=== PATIENT | female | born 1955 | race Caucasian/White ===

== ENCOUNTER → 2019-02-03 14:55 | Outpatient (CLI) | payer MEDICARE, SELFPAY ==
--- NOTE | 2019-02-03 15:05 | MM_ITS ---
PROCEDURE: MM DIG SCREENING MAMM BI W/CAD CLINICAL INDICATION: SCREENING The patient had previous mammograms more than 10 years ago which have been purged. There is a history of breast cancer in patient's mother diagnosed after menopause. COMPARISON: No exams were available for comparison TECHNIQUE: Standard CC and MLO images were obtained. R2 CAD reviewed. FINDINGS: Diffusely heterogenic fibroglandular densities are seen in both breasts. There is a dominant asymmetric density outer quadrant right breast at the 9 o'clock position. Recommend patient return for spot compression views and ultrasound for additional evaluation. There are multiple scattered benign-appearing macro and microcalcifications in each breast. There is faint arterial calcification in each breast. IMPRESSION: Diffusely dense parenchymal pattern with asymmetric density right breast somewhat indeterminate in appearance BI-RAD Category: 0 Need Additional Imaging Evaluation FOLLOW-UP: IMM Immediate Follow-up Recommended (A letter has been sent to the patient regarding results of the study.) Dictated by: Dr. Meño Tomlinson MD 02/05/2019 14:[address] Meño Tomlinson MD in [place] 02/05/2019 14:34
== END ==
PROVIDERS: PCP Nurse Practitioner Family; Visit Provider Nurse Practitioner Family
DX: Z12.31 Encounter for screening mammogram for malignant neoplasm of breast (principal)
CPT/HCPCS: 77067

== ENCOUNTER → 2019-02-24 13:39 | Outpatient (CLI) | payer MEDICARE, SELFPAY ==
--- NOTE | 2019-02-24 13:45 | MM_ITS ---
PROCEDURE: MM DIG MAMM DX UNILAT RT CAD CLINICAL INDICATION: ABN MAMM Follow-up abnormal mammogram COMPARISON: MM DIG SCREENING MAMM BI W/CAD from 02/03/2019 US BREAST RT COMPLETE from 02/24/2019 TECHNIQUE: Problem solving views performed along with right breast ultrasound FINDINGS: Average fibroglandular tissue. There is an oval well-circumscribed 15 by 8 mm nodule in the lower outer aspect of the right breast. Scattered asymmetric areas are present along with diffuse coarse areas of calcification. In addition, there is a small cluster of calcifications in the outer aspect of the right breast. These are mostly coarse with only a few pleomorphic calcifications noted. Unfortunately, patient's previous mammograms have been purged with no old exams available for comparison. Right breast ultrasound: There is a 12 by 8 mm cyst in the 8 o'clock region of the right breast corresponding to the nodular density noted on mammogram. No other abnormalities are evident. IMPRESSION: The nodule within the lower outer aspect of the right breast corresponds to a benign-appearing cyst. However, there is a mildly suspicious cluster of calcifications noted in the outer aspect of the right breast for which biopsy is suggested. Recommend stereotactic directed biopsy. BI-RAD Category: 4 Suspicious Abnormality - Biopsy Considered FOLLOW-UP: BIO Biopsy Recommended (A letter has been sent to the patient regarding results of the study.) Dictated by: Sharif Harper MD 02/27/2019 13:42 Electronically signed by Sharif Harper MD in [place] 02/27/2019 13:42
== END ==
PROVIDERS: PCP Nurse Practitioner Family; Visit Provider Nurse Practitioner Family
DX: R92.2 Inconclusive mammogram (principal)
CPT/HCPCS: 76641; 77065

== ENCOUNTER → 2019-03-17 08:40 | Outpatient (CLI) | payer MEDICARE, SELFPAY ==
--- NOTE | 2019-03-17 08:47 | MM_ITS ---
PROCEDURE: MM STEREOTACTIC LOC RT MAMMO SURGICAL SPECIMEN POST BIOPSY MAMMOGRAM WITH CLIP PLACEMENT CLINICAL INDICATION: RT BREAST MASS The COMPARISON: MM DIG SCREENING MAMM BI W/CAD from 02/03/2019 MM DIG MAMM DX UNILAT RT CAD from 02/24/2019 MM CLIP PLACEMENT RT from 03/17/2019 MM SURGICAL SPECIMEN RT from 03/17/2019 TECHNIQUE: Following obtaining informed consent under aseptic conditions and time-out procedure, the patient was placed in the stereotactic unit and the calcifications of interest were localized with stereotactic technique. Local anesthesia with 1 percent lidocaine and deeper anesthesia with lidocaine mixed with epinephrine was used. A skin su was performed and mammography needle inserted. Multiple mammotome biopsies were obtained with specimen radiograph demonstrating the calcifications of interest. A sterile non ferromagnetic clip was then placed. The patient tolerated the procedure well without evidence of immediate complications and left radiology suite in stable condition. Specimen was given to pathology FINDINGS: Surgical specimen: Microcalcifications of interest are present within the specimen radiograph. Post biopsy mammogram with clip placement: Pathology: Atrophic breast tissue with fatty metaplasia. Fibroadenomatoid hyperplasia with microcalcifications. Negative for atypical hyperplasia or malignancy. IMPRESSION: Uneventful stereotactic directed biopsy of the right breast showing benign findings. Recommend follow-up mammogram in 6 months per routine protocol. (A letter has been sent to the patient regarding results of the study.) Post biopsy changes are present with clip placed in the outer aspect of the right breast the with the calcifications of interest having been removed. Dictated by: Sharif Harper MD 03/23/2019 12:59 Electronically signed by Sharif Harper MD in [place] 03/23/2019 12:59
== END ==
PROVIDERS: PCP Nurse Practitioner Family; Visit Provider Nurse Practitioner Family
DX: D48.61 Neoplasm of uncertain behavior of right breast (principal)
CPT/HCPCS: 19081; 76098; 77065; 88305

== ENCOUNTER → 2019-03-19 10:24 | Outpatient (CLI) | payer MEDICARE, SELFPAY ==
--- NOTE | 2019-03-19 10:30 | CA_ITS ---
APPROVED REPORT Drop Shipment Clerk: Jaqueline Oliva RVT Laterality: Bilateral Study Quality: Adequate Indications: Carotid stenosis Risk Factors Hypertension: Hyperlipidemia Diabetes Stroke Doppler Spectral Velocity Analysis ECA (R) 63.20/7.50 cm/s ECA (L) 130.70/7.70 cm/s dICA (R) 79.00/29.10 cm/s dICA (L) 81.00/21.60 cm/s Sammie (R) 79.00/26.60 cm/s Sammie (L) 94.40/26.00 cm/s pICA (R) 97.30/34.10 cm/s pICA (L) 107.00/25.40 cm/s dCCA (R) 65.20/21.00 cm/s dCCA (L) 91.00/15.70 cm/s pCCA (R) 48.30/12.20 cm/s pCCA (L) 87.50/13.00 cm/s ICA/CCA 1.49 Vert (L) 66.00/13.70 cm/s ICA/CCA 1.18 Findings Study suggests 20-49% stenosis of the bilateral internal carotid arteries. Antegrade flow seen bilateral vertebral arteries. Conclusion Study suggests 20-49% stenosis of the bilateral internal carotid arteries. Antegrade flow seen bilateral vertebral arteries. Electronically signed by : Sharif Harper MD 03/20/2019 17:22:36
== END ==
PROVIDERS: PCP Nurse Practitioner Family; Visit Provider Nurse Practitioner Family
DX: I65.23 Occlusion and stenosis of bilateral carotid arteries (principal)
CPT/HCPCS: 93880

== ENCOUNTER 2021-08-02 21:09 | Emergency (ER) | payer MEDICARE, SELFPAY ==
[2021-08-02 21:11] VITALS: BP 152/81; PULSE 95; RESP 16; TEMP 36.6; O2SAT 97; BMI 28.3
[2021-08-02 21:30] VITALS: BP 157/71; PULSE 94; O2SAT 95
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
[2021-08-02 22:30] VITALS: BP 160/74; PULSE 84; O2SAT 92
[2021-08-02 23:28] VITALS: BP 153/84; PULSE 93; RESP 16; TEMP 36.4; O2SAT 96
== END 2021-08-02 23:29 | disposition home or self-care (01) ==
PROVIDERS: Emergency Provider Emergency Medicine; PCP Nurse Practitioner Family
DX: S01.81XA Laceration without foreign body of other part of head, initial encounter (principal); S00.83XA Contusion of other part of head, initial encounter; S16.1XXA Strain of muscle, fascia and tendon at neck level, initial encounter; V43.62XA Car passenger injured in collision with other type car in traffic accident, initial encounter; Y92.488 Other paved roadways as the place of occurrence of the external cause
CPT/HCPCS: 12011; 70150; 72050; 99283

== ENCOUNTER → 2022-01-03 09:27 | Outpatient (CLI) | payer MEDICARE, SELFPAY ==
--- NOTE | 2022-01-03 09:32 | XR_ITS ---
FINAL REPORT TECHNIQUE: Bone densitometry calculations of the lumbar spine and left hip were obtained. CLINICAL HISTORY: post menopausal FINDINGS: Using L1-4, the bone mineral density of the spine is 0.795 g/cm2, corresponding to T-score of -2.3. Using the left hip, the bone mineral density of the femoral neck is 0.502 g/cm2, corresponding to a T-score of -3.1. Using the right hip, the bone mineral density of the femoral neck is 0.558 g/cm2, corresponding to a T-score of -2.6. NOTE: T-score: Standard deviation compared with peak bone mass of young adult mean. *Following the recommendations of the International Society of Bone Densitometry, classification of hip BMD is based on the lower of two T-scores; total hip or femoral neck. IMPRESSION: Osteoporosis: Lowest T-score is at or below -2.5. This patient'' T-score meets the World Health Organization criteria for osteoporosis. FRAX score was not reported because some of the T-scores are at or below -2.5 Reviewed, Interpreted and Dictated by Dandy Suggs III, MD Transcribed by Haleigh Collier Authenticated and [facility]
--- NOTE | 2022-01-03 09:32 | MM_ITS ---
PROCEDURE INFORMATION: Exam: MG Bilateral Screening 3D Mammography Exam date and time: 01/03/2022 9:34 AM Age: 66 years old Clinical indication: Screening examination the. Family history of breast carcinoma. TECHNIQUE: Imaging protocol: Bilateral Screening tomosynthesis and 2D mammography including computer-aided detection (CAD) when performed. COMPARISON: 1. MG MM CLIP PLACEMENT RT 03/17/2019 10:29 AM 2. MG MM DIG MAMM DX UNILAT RT CAD 02/24/2019 1:55 PM 3. Screening mammogram 02/03/2019 FINDINGS: MAMMOGRAPHY: Breast composition: The breasts are heterogeneously dense, which may obscure small masses. Mass: No suspicious masses. Architectural distortion: No suspicious distortion. Calcifications: No suspicious calcifications. Asymmetric density: None. Skin thickening: None. Axillary adenopathy: None. IMPRESSION: No mammographic evidence of malignancy. Annual screening is recommended unless otherwise clinically indicated. ASSESSMENT: BI-RADS Category 1: Negative
== END ==
PROVIDERS: PCP Nurse Practitioner Family; Visit Provider Nurse Practitioner Family
DX: Z12.31 Encounter for screening mammogram for malignant neoplasm of breast (principal); M81.0 Age-related osteoporosis without current pathological fracture
CPT/HCPCS: 77063; 77067; 77080

== ENCOUNTER 2024-05-08 10:48 | Outpatient (CLI) | payer MEDICARE, SELFPAY ==
--- NOTE | 2024-05-08 | CA_ITS ---
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 Intrarenal resistive indices on the left are 0.91, markedly elevated. Right kidney: 11.6 cm in length, normal Right main renal artery systolic velocity: 631 cm/sec. Aortic-right renal artery flow velocity ratio: 6.1 COMMENT: Increased right renal artery velocity and ratio suggesting high-grade right renal artery stenosis.. Left kidney: 7.7 to cm in length, severely atrophic Left main renal artery systolic velocity: 89 cm/sec. Aortic-left renal artery flow velocity ratio: 0.86 COMMENT: Resistive indices markedly increased, probably related to chronic renal disease either remote infection or chronic ischemia.. IMPRESSION: High-grade right renal artery stenosis. Severely atrophic left kidney. Consider CTA or MRA of the renal arteries. Reviewed, Interpreted and Dictated by Eric Arzola MD Transcribed by Haleigh Collier Authenticated and . [facility]
--- NOTE | 2024-05-08 | CA_ITS ---
APPROVED REPORT Exam: Pharmacologic Technologist: Rosmery Rinaldi Ht: 5 ft 3 in Wt: 166 lbs BSA: 1.79 m2 Stress Test Details Test: Lexiscan Reason for pharmacologic stress test: changed from exercise stress test due to inability to reach target heart rate. HR Resting HR: 91 bpm Max Heart Rate (APMHR): 151.423645 bpm Max HR Achieved: 110 bpm Target HR (85% APMHR): 128.070535 bpm % of APMHR: 72.85 Recovery HR: 105 bpm BP Resting BP: 160.0/64.0 mmHg Max BP: 152.0/59.0 mmHg Recovery BP: 148.0/52.0 mmHg ECG Resting ECG: NSR, ST-T abns anterolaterally Stress ECG Conclusion Switched from exercise due to limited exercise capacity & inadequate HR response. Symptoms: Mild SOA, head discomfort. No CP. Arrhythmias/Ectopy: None. ST-T Changes: Exaqggeration of baseline abns laterally. Conclusion: Unremarkable Lexiscan stress. Electronically signed by : Kathi Hughes MD 05/13/2024 11:04:46
--- NOTE | 2024-05-08 10:56 | CA_ITS ---
APPROVED REPORT EXAM: Comprehensive 2D, Doppler, and color-flow Echocardiogram Parts Driver: Davida Christopher RT(R) Ht: 5 ft 3 in Wt: 162lbs BSA: 1.77 BP: 177/75 mmHg Indications: dyspnea, HTN, CKD, abn EKG 2D Dimensions Left Atrium 3.50 cm F: 2.7 - 3.8 LVEF (Beyer's) 28.40 % F: 54 - 74 LVOT 1.79 cm (M/F) 1.5-2.5 LV Volume 81.20 mL F: 46 - 106 LV Volume Index 45.9 mL/m2 F: 29 - 61 LA Volume 23.20 mL LA Volume Index 13.11 mL/m2 (M/F) 16-34 EF AP4 22.50 % EF AP2 34.2 % EF BP 28.4 % GL Strain -9.8 % M-Mode Dimensions RVDd 2.01 cm (0.9-2.6) LVDd 4.51 cm (3.5-5.7) Ao Diam 2.87 cm (2.0-3.7) LVDs 2.91 cm (3.5-5.7) IVSd 0.83 cm (0.6-1.1) PWd 1.16 cm (0.6-1.1) EF (Teich) 65.00% FS 35.50% EDV (Teich) 92.90 mL ESV (Teich) 32.50 mL LV Diastology E Decel Time 150 (160-240 msec) E/A Ratio 0.7 MED E' 5.4 (>= 7 cm/sec) E'/MED E' Ratio 15.11 (<= 14) LAT E' 6.2 (>= 10 cm/sec) E/LAT E' Ratio 13.16 (<= 14) Mitral Valve MV E Max Willie. 82.0 (40-130 cm/s) MV A Velocity 113.0 (40-130 cm/s) E/A Ratio 0.72 MV Decel. Time 150 (160-240 ms) Left Ventricle The left ventricle is normal size. The left ventricular systolic function is normal. The left ventricular ejection fraction is within the normal range. There is increased LV wall thickness. There is normal LV segmental wall motion. Transmitral Doppler flow pattern suggests impaired LV relaxation. LVEF is 60%. Right Ventricle The right ventricle is normal size. The right ventricular systolic function is normal. Atria The left atrium size is normal. The right atrium size is normal. There is no Doppler evidence of interatrial shunt. Aortic Valve The aortic valve is mildly thickened. There is no aortic valvular stenosis. No aortic regurgitation is present. Mitral Valve The mitral valve is mildly thickened. No evidence of mitral valve stenosis. Trace mitral regurgitation. Tricuspid Valve Tricuspid valve is grossly normal in structure and function. Trace tricuspid regurgitation. There is insufficient TR jet to estimate RVSP. Pulmonic Valve The pulmonary valve is normal in structure. Trace pulmonic regurgitation. Great Vessels The aortic root is normal in size. IVC is normal in size and collapses >50% with inspiration. Pericardium There is no pericardial effusion. Other Information Study Quality: Technically Difficult Conclusion Technically difficult study due to poor accoustic windows. Normal biventricular systolic function. No significant valvular stenosis or regurgitation. Electronically signed by : Kathi Hughes MD 05/20/2024 19:50:10
--- NOTE | 2024-05-08 11:40 | NM_ITS ---
APPROVED REPORT Exam: Nuclear Stress Test Indication: soa Patient Location: Outpatient Stress Tech: Rosmery Guevara CT Tech:Lucrecia Kitchen ALBINJovanni RT(R)(N) Ht: 5 ft 3 in Wt: 165 lbs HR: 91 bpm BP: 160/64 mmHg BSA: 1.78 m2 TID: 1.00 BMI: 29.2 History: soa Procedure: Patient received 0.4 mg of intravenous Lexiscan, resting heart rate 91 bpm, resting blood pressure 160/64 mmHg, with Lexiscan maximum heart rate achieved was 105 bpm which is 85 % of the maximum predicted heart rate and blood pressure was 135/44 mmHg. With Lexiscan, patient denied any complaint of chest pain. Cardiac Stress and Resting SPECT Images: Cardiac Stress and Resting SPECT images were obtained using technetium 99m Myoview 32.6 mCi stress and 10.48 mCi at rest. Resting and stress imaging in supine and prone positions demonstrate no evidence of fixed or reversible perfusion defects. Gated imaging demonstrates normal global and regional LV systolic function. LVEF is calculated at 63%. Conclusion: No evidence of fixed or reversible perfusion defects. Gated imaging demonstrates normal global and regional LV systolic function. LVEF is calculated at 63%. Electronically signed by : Kathi Hughes MD 05/13/2024 10:58:58
[2024-05-08] MEDS: ISOTOPE MYOVIEW (PER STUDY) 1 DOSE IV (13:38)
[2024-05-08] MEDS: REGADENOSON 0.4MG/5ML SYRINGE 0.4 MG IV (13:38)
[2024-05-08] MEDS: SODIUM CHLORIDE 0.9% 10ML SYR (RAD ONLY) 10 ML IV ×2 (13:38)
== END 2024-05-08 23:59 | disposition home or self-care (01) ==
LOC: RT 10:50
PROVIDERS: PCP Nurse Practitioner Family; Visit Provider Nurse Practitioner Family
DX: R94.31 Abnormal electrocardiogram [ECG] [EKG] (principal); R06.09 Other forms of dyspnea; R01.1 Cardiac murmur, unspecified; I12.9 Hypertensive chronic kidney disease with stage 1 through stage 4 chronic kidney disease, or unspecified chronic kidney disease; N18.9 Chronic kidney disease, unspecified
CPT/HCPCS: 78452; 93017; 93018; 93306; 93976; A9502; J2785

== ENCOUNTER 2024-06-18 14:02 | Outpatient (CLI) | payer MEDICARE, SELFPAY ==
--- NOTE | 2024-06-18 14:07 | CA_ITS ---
FINAL REPORT TECHNIQUE: Color Doppler, duplex Doppler and whitlock scale sonography of the bilateral neck vasculature was performed. Velocities were measured in the carotid arteries. Stenosis evaluation based on velocity criteria. CLINICAL HISTORY: Exsmoker, SATURNINO, Bruit COMPARISON: None FINDINGS: The peak systolic velocity of the right common carotid artery is 110 cm/sec and internal carotid artery 86 cm/sec. The diastolic velocity in the internal carotid artery is 25 cm/sec. The ICA/CCA ratio is 1.2. Visually, a small amount of plaque is seen. These findings are consistent with less than 50% stenosis. The external carotid artery is patent. Scant flow is noted in the right vertebral artery, which appears to be antegrade, although extremely faint and difficult to identify. The peak systolic velocity of the left common carotid artery is 109 cm/sec and internal carotid artery 158 cm/sec. The diastolic velocity in the internal carotid artery is 24 cm/sec. The ICA/CCA ratio is 1.8. Visually, a small amount of plaque is seen. These findings are consistent with less than 50% stenosis. The external carotid artery is patent. The left vertebral artery is patent with antegrade flow. IMPRESSION: No evidence of significant carotid stenosis. Scant flow is noted in the right vertebral artery, with the flow appearing to be antegrade. Right vertebral artery proximal stenosis is not excluded. If indicated, CTA or catheter angiography could further evaluate. Reviewed, Interpreted and Dictated by Jin Nix MD Transcribed by Clara Cabral Authenticated and [facility]
== END 2024-06-18 23:59 | disposition home or self-care (01) ==
LOC: RT 14:03
PROVIDERS: PCP Nurse Practitioner Family; Visit Provider Nurse Practitioner
DX: R09.89 Other specified symptoms and signs involving the circulatory and respiratory systems (principal)
CPT/HCPCS: 93880

== ENCOUNTER 2024-07-24 07:47 | Outpatient (CLI) | payer MEDICARE, SELFPAY ==
--- NOTE | 2024-07-24 07:51 | XR_ITS ---
FINAL REPORT CLINICAL HISTORY: SOB COMPARISON: None FINDINGS: CHEST 2 VIEWS: No acute pulmonary density is evident. There is no evidence of effusion or other pleural disease. The mediastinum has a normal appearance. The cardiac silhouette is unremarkable. IMPRESSION: Unremarkable chest exam. Reviewed, Interpreted and Dictated by Eric Arzola MD Transcribed by Clara Cabral Authenticated and [facility]
--- NOTE | 2024-07-24 07:51 | CT_ITS ---
FINAL REPORT CLINICAL HISTORY: .former smoker quit 5 years ago 1ppd x49 years COMPARISON: None FINDINGS: CT CHEST LOW DOSE SCREENING HISTORY: Screening exam for lung cancer. 68-year-old female, former smoker quit 5 years ago, [id number]-[id number] history DOSE: CTDI vol: 2.90 mGy, DLP: 87.25 mGy*cm TECHNIQUE: Axial CT without IV contrast administration using low dose protocol. This study was performed with techniques to keep radiation doses as low as reasonably achievable, (ALARA). Individualized dose reduction techniques using automated exposure control or adjustment of mA and/or kV according to the patient's size were employed. No acute lung disease is present. No pulmonary lesions are seen suspicious for neoplasm. Scattered calcified granulomas are identified. No pleural or pericardial effusion is seen. No adenopathy or mass lesion is present. IMPRESSION: No evidence of lung cancer LUNG RADS CATEGORY 1 RECOMMENDATION: 12 month LDCT follow up Reviewed, Interpreted and Dictated by Eric Arzola MD Transcribed by Clara Cabral Authenticated and [facility]
--- NOTE | 2024-07-24 07:52 | XR_ITS ---
FINAL REPORT TECHNIQUE: Bone mineral density was calculated of the lumbar spine and hip. CLINICAL HISTORY: SCREENING COMPARISON: 01/03/2022 FINDINGS: Using L1-4, the bone mineral density of the spine is 0.843 g/cm2, corresponding to T-score of -1.9. Using the left hip, the bone mineral density of the femoral neck is 0.575 g/cm2, corresponding to a T-score of -2.5. Using the right hip, the bone mineral density of the femoral neck is 0.614 g/cm?, corresponding to a T-score of -2.1. NOTE: T-score: Standard deviation compared with peak bone mass of young adult mean. *Following the recommendations of the International Society of Bone densitometry, classification of hip BMD is based on the lower of two T-scores; total hip or femoral neck. IMPRESSION: Diminished bone mineral density of the right hip consistent with osteoporosis. Diminished bone mineral density of the lumbar spine and left hip consistent with osteopenia. Reviewed, Interpreted and Dictated by Eric Arzola MD Transcribed by Clara Cabral Authenticated and . [facility]
--- NOTE | 2024-07-24 07:52 | MM_ITS ---
PROCEDURE INFORMATION: Exam: MG Bilateral Screening 3D Mammography Exam date and time: 07/24/2024 8:09 AM Age: 68 years old Clinical indication: Screening examination TECHNIQUE: Imaging protocol: Bilateral Screening tomosynthesis and 2D mammography including computer-aided detection (CAD) when performed. COMPARISON: 1. MG MM DIG SCREENING MAMM BI W/CAD 01/03/2022 9:34 AM 2. MG MM CLIP PLACEMENT RT 03/17/2019 10:29 AM FINDINGS: MAMMOGRAPHY: Breast composition: The breasts are heterogeneously dense, which may obscure small masses. Mass: None. Architectural distortion: None. Calcifications: No suspicious calcifications. Asymmetric density: None. Skin thickening: None. Axillary adenopathy: None. IMPRESSION: No mammographic evidence of malignancy. Annual screening is recommended unless otherwise clinically indicated. ASSESSMENT: BI-RADS Category 1: Negative.
== END 2024-07-24 23:59 | disposition home or self-care (01) ==
LOC: RAD 07:48
PROVIDERS: PCP Nurse Practitioner Family; Visit Provider Nurse Practitioner Family
DX: M85.89 Other specified disorders of bone density and structure, multiple sites (principal); N18.30 Chronic kidney disease, stage 3 unspecified; R06.02 Shortness of breath; Z12.2 Encounter for screening for malignant neoplasm of respiratory organs; Z87.891 Personal history of nicotine dependence; Z12.31 Encounter for screening mammogram for malignant neoplasm of breast
CPT/HCPCS: 71046; 71271; 77063; 77067; 77080

== ENCOUNTER 2024-11-19 13:38 | Outpatient (CLI) | payer MEDICARE, SELFPAY ==
--- OUTSIDE RECORDS SUMMARY | 2024-10-05 08:51 | XMS_ITS | Encounter Summary ---
Author Organization [employer] ([place], [place], [place], [place]) Address [address] [place] [address] Care Team Providers Care English Composition Teacher Name Role Phone Nuris Sandra APRN Primary Care Provider + [phone] Reason for Referral * Interventional Radiology (Routine) - New Request Specialty Diagnoses / Procedures Referred By Ángelac t Referred To Contact Radiology Diagnoses Renal artery stenosis (HCC) Procedures IR RENAL ANGIOGRAM BILATERAL 1ST ORDER Ganesh Wadsworth MD [address] [place] [address] [address] [place] [address] Phone: tel: fax: Referral ID Status Reason Start Date Expiration Date V isits Requested Visits Authorized [id number] New Request 10/01/2024 10/01/2025 1 1 Reason for Visit * Interventional Radiology (Routine) - New Request Specialty Diagnoses / Procedures Referred By Virginia mcgowan Referred To Contact Radiology Diagnoses Renal artery stenosis (HCC) Procedures IR RENAL ANGIOGRAM BILATERAL [place] [address] [place] [address] [address] [place], [place] [id number] Phone: tel: fax: Referral ID Status Reason Start Date Expiration Date V isits Requested Visits Authorized [id number] New Request 10/01/2024 10/01/2025 1 1 Encounter Details Date Type Department Care Team (Late st Contact Info) Description 10/05/2024 8:51 AM EDT - 10/05/2024 11:59 PM EDT Hospital Encounter [facility] [address] [place] [address] Ganesh Wadsworth MD [address] [facility] [address] [place], [place] [id number] Madhu Cardona MD [address] [facility] [address] [place], [place] [id number] Renal artery stenosis (HCC) Discharge Disposition: Home or Self Care Social History Tobacco Use Types Packs/Day Years Used Date Smoking Tobacco: Former Cigarettes Smokeless Tobacco: Never Tobacco Cessation:Counseling Given: Not Answered Comments:Quit 2019 Comments No Sex and Gender Information Value Date Recorded Sex Assigned at Not on file Legal Sex Female 5:42 PM CDT Gender Identity Not on file Sexual Orientation Not on file documented as of this encounter Last Filed Vital Signs Vital Sign Reading Time Taken Comments Blood Pressure 149/62 10/05/2024 7:00 PM EDT Pulse 104 10/05/2024 8:00 PM EDT Temperature 36.4 C (97.6 F) 10/05/2024 9:40 AM EDT Respiratory Rate 20 10/05/2024 8:00 PM EDT Oxygen Saturation 97% 10/05/2024 8:00 PM EDT Inhaled Oxygen Concentration - - Weight 64.9 kg (143 lb) 10/05/2024 9:40 AM EDT Height 160 cm (5' 3 ) 10/05/2024 9:40 AM EDT Body Mass Index 25.33 10/05/2024 9:40 AM EDT documented in this encounter Discharge Instructions * Discharge Instr - Activity* Nani Manzanares RN - 10/05/2024 7:[address] ED[address] not drive, make important decisions or be alone for 24 hours. No strenuous activity for the nextseveral days, until released by your doctor to do so. Follow up as scheduled. * Discharge Instr - Diet* Nani Manzanares RN - 10/05/2024 7:48 PM EDT Resume diet as tolerated. * Attachments The following attachments cannot be sent through Care Everywhere. * Renal Artery Stenosis (Par[place]ayan) * Angiogram Care After [facility]vm[facility]-hf-Layk ([place]) * Moderate Conscious Sedation Adult Care After ([place]ayan) documented in this encounter Medications at Time of Discharge amLODIPine (NORVASC) 10 MG tablet Take 1 tablet (10 mg total) by mouth daily. atorvastatin (LIPITOR) 10 MG tablet Take 1 tablet (10 mg total) by mouth nightly. carvediloL (COREG) 25 MG tablet Take 1 tablet (25 mg total) by mouth 2 (two) times daily with breakfast and dinner. furosemide (LASIX) 20 MG tablet Take 1 tablet (20 mg total) by mouth daily. hydrOXYzine pamoate (VISTARIL) 50 MG capsule Take 1 capsule (50 mg total) by mouth 2 (two) times daily Look-alike/So und-alike medication. levothyroxine (SYNTHROID) 88 MCG tablet Take 1 tablet (88 mcg total) by mouth Daily (0600). montelukast (SINGULAIR) 10 mg tablet Take 1 tablet (10 mg total) by mouth nightly. rOPINIRole (REQUIP) 1 MG tablet Take 1 tablet (1 mg total) by mouth once at bedtime. SITagliptin phosphate (JANUVIA) 50 MG tablet Take 1 tablet (50 mg total) by mouth daily. documented as of this encounter Progress Notes * Nani Manzanares RN - 10/05/2024 10:00 AM EDT 1410 Pt urinated in bedpan, moderate amount clear, yellow urine. * Nani Manzanares RN - 10/05/2024 10:00 AM EDT 1630 Pt urinated in bedpan, moderate amount of clear, yellow urine. * Nani Manzanares RN - 10/05/2024 10:00 AM EDT 1900 Pt urinated significant amount of clear, yellow urine in bed adames. * Nani Manzanares RN - 10/05/2024 10:00 AM EDT 2006 Discharge teaching done with patient and daughter,written instructions given. Pt taken by wheelchair to meet daughter (ambulance driver) in car. documented in this encounter H&P Notes * Dilma Stack PA-C - 10/05/2024 10:00 AM EDTSummary: H&P History of Present Illness History Of Present Illness Michelle Castañeda is a 69 y.o. female presenting with hypertension and possible renal artery stenosis. Past Medical History She has a past medical history of Chronic kidney disease, Colon cancer (HCC), Diabetes mellitus (HCC), Hyperlipidemia, Hypertension, and Thyroid disease. Surgical History She has a past surgical history that includes Colectomy. Social History She reports that she has quit smoking. Her smoking use included cigarettes. She has never used smokeless tobacco. No history on file for alcohol use and drug use. Family History Her family history is not on file. Allergies Hydralazine, Metoprolol, Azithromycin, and Benadryl [Diphenhydramine-Zinc Acetate] Medications Current Outpatient Medications Medication Instructions amLODIPine (NORVASC) 10 mg, Daily atorvastatin (LIPITOR) 10 mg, Every Night carvediloL (COREG) 25 mg, 2 times daily with breakfast and dinner furosemide (LASIX) 20 mg, Daily hydrOXYzine pamoate (VISTARIL) 50 mg, 2 times daily levothyroxine (SYNTHROID) 88 mcg, Daily (0600) montelukast (SINGULAIR) 10 mg, Every Night rOPINIRole (REQUIP) 1 mg, Once at bedtime SITagliptin phosphate (JANUVIA) 50 mg, Daily Review of Systems Review of Systems Last Recorded Vitals Blood pressure 129/66, pulse 75, temperature 97.6 ??F (36.4 ??C), resp. rate 18, height 1.6 m (5' 3 ), weight 64.9 kg (143 lb), SpO2 98%. Physical Exam Diagnostic Results Hospital Outpatient Visit on 10/05/2024 Component Date Value Ref Range Status POC-EGFR 10/05/2024 40 mL/min/1.73M2 Final Automatic Furnace Operator 10/05/2024 [id number] Final POC-Creatinine 10/05/2024 1.4 (H) 0.6 - 1.3 mg/dL Final XR chest 1 view portable / bedside Narrative: PORTABLE CHEST HISTORY: Acute shortness of breath. COMPARISON: November 2015. FINDINGS: The heart is normal in size. The mediastinum is unremarkable. The lungs are well expanded with mild emphysema. There is no pneumothorax. Impression: No acute cardiopulmonary process. Images reviewed, interpreted, and dictated by Dr. Madhu Cardona. Transcribed by Ryanne Herrera PA-C. CT chest without IV contrast Narrative: CT CHEST WITHOUT CONTRAST HISTORY: Shortness of breath, former smoker. Hypertension. COMPARISON: Chest x-ray performed one hour prior. PROCEDURE: Thin section axial images from the thoracic inlet through the upper abdomen were performed without contrast. Coronal reformatted images were performed and reviewed. This study was performed with techniques to keep radiation doses as low as reasonably achievable, (ALARA). Individualized dose reduction techniques using automated exposure control or adjustment of mA and/or kV according to the patient size were employed. FINDINGS: The thyroid gland is homogeneous. There is no focal abnormality. There are vascular calcifications of the aorta. There are significant coronary artery calcifications. The heart is normal in size. There is evidence of old calcified granulomatous disease. There is no adenopathy. There are no pleural or pericardial effusions. There is a small hiatal hernia. The left kidney is atrophic. There is no edema. There is diffuse mild bronchial thickening. Within the posterior left upper lobe on image 14, there is a vague peripheral groundglass nodule measuring 7.5 mm. This is indeterminate. There are small peripheral reticular densities in the posterior right upper lobe and in the central left upper lobe. The left upper lobe reticulonodular densities are seen on image 13 of series 3 and coronal images 61 through 65. Impression: 1. Significant coronary artery calcifications. 2. Diffuse bronchial thickening. 3. No edema or infiltrate. 4. Posterior left upper lobe groundglass 7.5 mm nodule on image 14. This is unchanged from the prior study. Based on Fleischner Society Guidelines, recommend follow-up chest CT in one year. 5. Peripheral posterior right upper lobe and central left upper lobe reticulonodular densities which may be infectious/inflammatory. Images reviewed, interpreted, dictated and electronically signed by Madhu Cardona MD Voice lead software developer technology ([employer]) is used for the dictation of this note and sound-alike words might be erroneously placed despite reviewing this note for accuracy. Errors in dictation may reflect use of voice recognition software and not all errors in lead software developer may have been detected prior to signing. Assessment & Plan Patient is hypertensive with possible renal artery stenosis- Will proceed with renal angiogram to evaluate for stenoses. Electronically signed by: Dilma Stack PA-C, 10/05/2024 at 10:01 AM Cosigned by Madhu Cardona MD at 10/05/2024 7:20 PM EDT documented in this encounter Procedure Notes * Madhu Cardona MD - 10/05/2024 10:00 AM EDT Pre-Op Diagnosis: Uncontrolled hypertension Post-OP Diagnosis: Same Procedure Performed: Aortogram/ Renal angiogram with intervention Procedural Radiologist: Madhu Cardona MD Cnc Operator: Non Sedation: 2 mg iv Versed and 100 micrograms iv Fentanyl Findings: Significant right renal artery stenosis. 6 mm SAFE DEPOSIT CLERK and stenting of right renal artery perfomed Complications: Renal artery dissection with thrombosis successfully treated with TPA, and suction thromectomy and repeat stent with good result. Patient stable and in good condition. EBL: 50 ml Specimen(s) Removed: none Full report to follow. documented in this encounter Plan of Treatment Not on file documented as of this encounter Procedures Procedure Name Priority Date/Time Associated Diagnosis Comments POCT-ACT Routine 10/05/2024 1:23 PM EDT IR RENAL ANGIOGRAM BILATERAL 1ST ORDER Routine 10/05/2024 1:19 PM EDT Renal artery stenosis (HCC) POCT-CREATININE Routine 10/05/2024 9:51 AM EDT documented in this encounter Results * POC ACTIVATED CLOTTING TIME (10/05/2024 1:23 PM EDT) Activated Clotting Time 135 74 - 137 sec 10/05/2024 1:25 PM EDT [facility] Automatic Furnace Operator [id number] 10/05/2024 1:25 PM EDT [facility] Blood 10/05/2024 1:23 PM EDT 10/05/2024 1:25 PM EDT Narrative [facility] - 10/05/2024 1:25 PM EDT Automatic Furnace Operator ID is - [id number] us Ganesh Wadsworth MD POINT OF CARE TEST ORDERABLES F inal Result Performing Organization Address City/State/[facility] Co de Phone Number [facility] [address] [phone] * IR RENAL ANGIOGRAM BILATERAL 1ST ORDER (10/05/2024 1:19 PM EDT) Anatomical Region Laterality Modality Interventional R adiology 10/05/2024 6:05 PM EDT Impressions 10/05/2024 7:15 PM EDT 1. High-grade right renal artery stenosis. 2. Placement of a 6 mm stent with poor inflation. Subsequent inflation with additional balloons were performed likely resulting in a small dissection and thrombosis of the renal artery. Subsequently, the [place] 6 [place] thrombectomy catheter was used to remove the thrombus from the renal artery. A second stent was placed inside the previous stent. There was no residual thrombus. Images reviewed, interpreted, dictated and electronically signed by Madhu Cardona MD Voice lead software developer technology ([employer]) is used for the dictation of this note and sound-alike words might be erroneously placed despite reviewing this note for accuracy. Errors in dictation may reflect use of voice recognition software and not all errors in lead software developer may have been detected prior to signing. Narrative 10/05/2024 7:15 PM EDT CO2 ABDOMINAL AORTOGRAM WITH RIGHT RENAL ARTERY STENTING AND MECHANICAL THROMBECTOMY HISTORY: Hypertension, renal insufficiency. FLUOROSCOPY TIME: 44.7 minutes RADIATION DOSE: Reference air kerma 9005 mGy. DAP: 58974 cGy.cm2 PROPHYLACTIC ANTIBIOTIC: The patient was administered a one-time prophylactic dose of 2 g Ancef according to the interventional radiology standing antibiotic orders. PROCEDURE: The procedure, risks and benefits were explained to the patient. Informed and written consent was obtained. The procedure was performed using all elements of maximum sterile barrier technique. All active operators wore a head cover, mask, sterile gown, and sterile gloves. Other nonsterile participants wore a head cover and mask. The operative site was prepped and draped in the usual sterile manner with 2% chlorhexidine. The area was covered with a large sterile drape. A timeout procedure was performed. The skin was anesthetized with 1% lidocaine. Ultrasound was used to visualize the common femoral artery. Using a sterile probe cover and sterile gel, ultrasound guidance was used to gain access to the common femoral artery. Imaging of this access was placed into the medical record. A 4 [place] catheter was then inserted over a glidewire into the abdominal aorta. A CO2 arteriogram was performed. This demonstrates a high-grade stenosis of the right renal artery. Subsequently, a 5.5 [place] sheath was inserted to the level of the renal artery. A reverse curve SOS catheter was then used to select the renal artery and a 0.018 Advantage Glidewire was inserted past the stenosis into the renal artery. A follow-up angiogram redemonstrates the stenosis. At this time, a 6 mm x 18 mm Express stent was passed to the stenosis. This was dilated. The proximal and distal ends of the stent dilated well. However, there is significant resistance to dilation of the stenosis secondary to calcification. The 6 mm balloon was removed and a 4 mm balloon was inserted and used to dilate the stenosis. The balloon would not inflate completely and ruptured. The balloon was removed and a 5 mm balloon was then used to redilate the stent with success. However, on follow-up, there is noted to be thrombus throughout the stent and in the renal artery. At this time, the patient was administered 6500 units of heparin intravenously. Two units of alteplase were inserted into the renal artery. The penumbra [place] 6 [place] catheter was then inserted and passed for mechanical thrombectomy. Repeat TPA was administered. The thrombectomy catheter was then passed through the stent and arterial system a second time. There is no residual thrombus identified distally. There is some residual thrombus within the stent. Subsequently, a new 6 mm x 17 mm Express stent was deployed and dilated to 6 mm with good result. A follow-up demonstrates good antegrade flow with no residual thrombus. The catheter and sheath were removed and hemostasis was obtained with manual pressure after obtaining an ACT value. Procedure Note Madhu Cardona MD - 10/05/2024 CO2 ABDOMINAL AORTOGRAM WITH RIGHT RENAL ARTERY STENTING AND MECHANICAL THROMBECTOMY HISTORY: Hypertension, renal insufficiency. FLUOROSCOPY TIME: 44.7 minutes RADIATION DOSE: Reference air kerma 9005 mGy. DAP: 52233 cGy.cm2 PROPHYLACTIC ANTIBIOTIC: The patient was administered a one-time prophylactic dose of 2 g Ancef according to the interventional radiology standing antibiotic orders. PROCEDURE: The procedure, risks and benefits were explained to the patient. Informed and written consent was obtained. The procedure was performed using all elements of maximum sterile barrier technique. All active operators wore a head cover, mask, sterile gown, and sterile gloves. Other nonsterile participants wore a head cover and mask. The operative site was prepped and draped in the usual sterile manner with 2% chlorhexidine. The area was covered with a large sterile drape. A timeout procedure was performed. The skin was anesthetized with 1% lidocaine. Ultrasound was used to visualize the common femoral artery. Using a sterile probe cover and sterile gel, ultrasound guidance was used to gain access to the common femoral artery. Imaging of this access was placed into the medical record. A 4 [place] catheter was then inserted over a glidewire into the abdominal aorta. A CO2 arteriogram was performed. This demonstrates a high-grade stenosis of the right renal artery. Subsequently, a 5.5 [place] sheath was inserted to the level of the renal artery. A reverse curve SOS catheter was then used to select the renal artery and a 0.018 Advantage Glidewire was inserted past the stenosis into the renal artery. A follow-up angiogram redemonstrates the stenosis. At this time, a 6 mm x 18 mm Express stent was passed to the stenosis. This was dilated. The proximal and distal ends of the stent dilated well. However, there is significant resistance to dilation of the stenosis secondary to calcification. The 6 mm balloon was removed and a 4 mm balloon was inserted and used to dilate the stenosis. The balloon would not inflate completely and ruptured. The balloon was removed and a 5 mm balloon was then used to redilate the stent with success. However, on follow-up, there is noted to be thrombus throughout the stent and in the renal artery. At this time, the patient was administered 6500 units of heparin intravenously. Two units of alteplase were inserted into the renal artery. The penumbra [place] 6 [place] catheter was then inserted and passed for mechanical thrombectomy. Repeat TPA was administered. The thrombectomy catheter was then passed through the stent and arterial system a second time. There is no residual thrombus identified distally. There is some residual thrombus within the stent. Subsequently, a new 6 mm x 17 mm Express stent was deployed and dilated to 6 mm with good result. A follow-up demonstrates good antegrade flow with no residual thrombus. The catheter and sheath were removed and hemostasis was obtained with manual pressure after obtaining an ACT value. IMPRESSION: 1. High-grade right renal artery stenosis. 2. Placement of a 6 mm stent with poor inflation. Subsequent inflation with additional balloons were performed likely resulting in a small dissection and thrombosis of the renal artery. Subsequently, the [place] 6 [place] thrombectomy catheter was used to remove the thrombus from the renal artery. A second stent was placed inside the previous stent. There was no residual thrombus. Images reviewed, interpreted, dictated and electronically signed by Madhu Cardona MD Voice lead software developer technology ([employer]) is used for the dictation of this note and sound-alike words might be erroneously placed despite reviewing this note for accuracy. Errors in dictation may reflect use of voice recognition software and not all errors in lead software developer may have been detected prior to signing. Ganesh Wadsworth MD IM IR ORDERABLES Final Result * (ABNORMAL) POC-Creatinine (10/05/2024 9:51 AM EDT) POC-EGFR 40 mL/min/1. 73M2 10/05/2024 9:54 AM EDT [facility] Comment:Proceed with contras t if eGFR > 45 ml/min/1.73 when performed on the NovaSTAT strip Creatinine meter. Automatic Furnace Operator [id number] 10/05/2024 9:54 AM EDT [facility] POC-Creatinine 1.4(H) 0.6 - 1.3 mg/dL 10/05/2024 9:54 AM EDT [facility] Blood 10/05/2024 9:51 AM EDT 10/05/2024 9:54 AM EDT Narrative [facility] - 10/05/2024 9:54 AM EDT Automatic Furnace Operator ID is - [id number] us Ganesh Wadsworth MD POINT OF CARE TEST ORDERABLES F inal Result [facility] [address] [phone] documented in this encounter Visit Diagnoses Diagnosis Renal artery stenosis (HCC) Atherosclerosis of renal artery documented in this encounter Administered Medications Inactive Administered Medications - up to 3 most recent administrations Medication Order MAR Action Action Date Dose Rate Site alteplase (CATHFLO ACTIVASE) injection IMG once as needed, Starting on Sat10/05/24 at 1221, For 1 dose, Intra-op Given 10/05/2024 12:21 PM EDT 2 mg alteplase (CATHFLO ACTIVASE) injection IMG once as needed, Starting on Sat10/05/24 at 1253, For 1 dose, Intra-op Given 10/05/2024 12:53 PM EDT 2 mg ceFAZolin (ANCEF) injection IMG once as needed, other - see admin instructions/comments, Starting on Sat10/05/24 at 1048, For 1 dose, Intra-op Given 10/05/2024 11:47 AM EDT 2 g Left Arm fentaNYL PF (SUBLIMAZE) injection IMG once as needed, intravenous, Starting on Sat10/05/24 at 1129, For 1 dose, Intra-op Given 10/05/2024 11:29 AM EDT 50 mcg fentaNYL PF (SUBLIMAZE) injection IMG once as needed, intravenous, Starting on Sat10/05/24 at 1203, For 1 dose, Intra-op Given 10/05/2024 12:03 PM EDT 50 mcg fentaNYL PF (SUBLIMAZE) injection IMG once as needed, intravenous, Starting on Sat10/05/24 at 1305, For 1 dose, Intra-op Given 10/05/2024 1:05 PM EDT 50 mcg heparin 1,000 Units/mL injection IMG once as needed, intravenous, Starting on Sat10/05/24 at 1221, For 1 dose, Intra-op Given 10/05/2024 12:21 PM EDT 3,000 Units heparin 1,000 Units/mL injection IMG once as needed, intravenous, Starting on Sat10/05/24 at 1241, For 1 dose, Intra-op Given 10/05/2024 12:41 PM EDT 3,500 Units HYDROcodone-acetaminophen (NORCO) 7.5-325 mg per tablet 1 tablet 1 tablet Once as needed, oral, severe pain (7-10), Starting on Sat10/05/24 at 1333, For 1 dose, 2nd line. Give if inadequate response (less than 30% improvement) to 1st line agent in 15 minutes., Phase II/On Unit Given 10/05/2024 2:43 PM EDT 1 tablet iodixanoL (VISIPAQUE) injection IMG once as needed, Starting on Sat10/05/24 at 1316, For 1 dose, Intra-op Given 10/05/2024 1:16 PM EDT 65 mLs Left Groin lidocaine (PF) injection 10 mg/mL (1%) IMG once as needed, intradermal, Starting on Sat10/05/24 at 1129, For 1 dose, Intra-op Given 10/05/2024 11:29 AM EDT 10 mLs Right Groin midazolam (PF) (VERSED) injection IMG once as needed, intravenous, Starting on Sat10/05/24 at 1129, For 1 dose, Intra-op Given 10/05/2024 11:29 AM EDT 1 mg midazolam (PF) (VERSED) injection IMG once as needed, intravenous, Starting on Sat10/05/24 at 1203, For 1 dose, Intra-op Given 10/05/2024 12:03 PM EDT 1 mg ondansetron (ZOFRAN) injection IMG once as needed, intravenous, Starting on Sat10/05/24 at 1223, For 1 dose, Intra-op Given 10/05/2024 12:23 PM EDT 4 mg documented in this encounter Care Teams English Composition Teacher Relationship Specialty Start Date End Date Nuris Sandra, BILLING SERVICES MANAGER [address] [place] [address] PCP - General Family Medicine 04/08/24 documented as of this encounter
--- NOTE | 2024-11-19 13:41 | MR_ITS ---
PROCEDURE INFORMATION: Exam: MR Lumbar Spine Without Contrast Exam date and time: 11/19/2024 1:43 PM Age: 69 years old Clinical indication: Low back pain; Additional info: Radiculopathy/kyphosis thoracic reg. /kidney stents. Bilateral low back and mid back pain. No injury or trauma. TECHNIQUE: Imaging protocol: Magnetic resonance imaging of the lumbar spine without contrast. COMPARISON: MR THORACIC SPINE WO CON 11/19/2024 1:43 PM FINDINGS: Bones/joints: A concavity/Schmorl's node is the fat defied of the inferior L4 endplate, without acute marrow edema. The lumbar vertebral bodies are otherwise normal in height, without abnormal subluxation. A small concavity/Schmorl's node is seen of the inferior L4 endplate. A slight chronic decrease in vertebral height or compression deformity is identified of the T11 vertebral body without acute marrow edema. Spinal cord: The distal end of the conus medullaris ends at L1, normal in position. Multilevel findings: Degenerative changes are noted at multiple lumbar and lower thoracic levels, with a decrease in the T2 signal intensity of the discs, as well as disc bulge/osteophyte complexes. T10-T11: At T10-11, there is a decrease in disc height with mild disc bulging. There is no significant spinal canal stenosis or neural foraminal narrowing. This level is out of the field of view of axial images, limiting the evaluation. T11-T12: At T11-12, there is mild disc bulging without significant spinal canal stenosis. T12-L1: At T12-L1, there is no significant spinal canal stenosis or neural foraminal narrowing. L1-L2: Mild bilateral facet arthropathy is visualized. Hypertrophy of the ligamentum flavum is visualized. There is mild disc bulging, without significant spinal canal stenosis. There is no significant neural foraminal narrowing bilaterally. L2-L3: There is no significant spinal canal stenosis or neural foraminal narrowing. Bilateral facet arthropathy with hypertrophy of the ligamentum flavum. L3-L4: Bilateral facet arthropathy with hypertrophy of the ligamentum flavum. There is no significant spinal canal stenosis or neural foraminal narrowing. L4-L5: Bilateral facet arthropathy with hypertrophy of the ligamentum flavum. A broad-based disc bulge is visualized, without significant spinal canal stenosis. There is narrowing of the lateral recesses bilaterally. Moderate right and mild left neural foraminal narrowing identified. L5-S1: Bilateral facet arthropathy with hypertrophy of the ligamentum flavum. Minimal disc bulging is seen, without significant spinal canal stenosis. There is no significant neural foraminal narrowing bilaterally. Soft tissues: No significant paraspinal swelling. Kidneys and ureters: Severe atrophy of the left kidney is identified. T2 hyperintense bilateral renal cysts are identified. The largest cyst is noted at the upper pole of the left kidney measuring 1.4 cm in diameter. Evaluation of the kidneys is limited. IMPRESSION: 1. Degenerative changes are is visualized involving the lumbar lower thoracic spine, as described above. 2. No significant spinal canal stenosis at any lumbar level. 3. Neural foraminal narrowing at L4-L5. 4. Severe atrophy of the left kidney is identified. Bilateral renal cysts are identified. 5. Additional findings described above.
--- NOTE | 2024-11-19 13:41 | MR_ITS ---
PROCEDURE INFORMATION: Exam: MR Thoracic Spine Without Contrast Exam date and time: 11/19/2024 1:43 PM Age: 69 years old Clinical indication: Pain in thoracic spine; Additional info: Bilateral low back and mid back pain. No injury or trauma. TECHNIQUE: Imaging protocol: Magnetic resonance imaging of the thoracic spine without contrast. COMPARISON: CT LUNG SCREENING 07/24/2024 8:00 AM FINDINGS: alignment is grossly normal. signal intensity within the bone marrow is normal. conus terminates at the mid aspect of L1. Soft tissues are unremarkable. No subluxation-no perched or jumped facets. The facets are without acute process. Mild disc disease reflected as disc space narrowing and anterior osteophyte formation most conspicuous in the midthoracic region. Mild compression fractures involving the anterior column of T8, likely T7, anterior and middle columns of T5. No retropulsed fragment. Chronic. Large Schmorl's node inferior endplate T5 No marrow edema. 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 Small cyst upper pole. Cystic structure in the right pelvis possibly ovarian. Follow-up pelvic ultrasound suggested given the patient's age. Bones/joints: No acute fracture. Mildly exaggerated kyphosis. Spinal cord: Normal signal. No cord compression. T1-T2: No significant spinal canal stenosis. T2-T3: No significant spinal canal stenosis. T3-T4: No significant spinal canal stenosis. T4-T5: No significant spinal canal stenosis. T5-T6: No significant spinal canal stenosis. T6-T7: No significant spinal canal stenosis. T7-T8: No significant spinal canal stenosis. T8-T9: No significant spinal canal stenosis. T9-T10: No significant spinal canal stenosis. T10-T11: No significant spinal canal stenosis. T11-T12: No significant spinal canal stenosis. T12-L1: . No spinal canal stenosis. Soft tissues: Small cystic structures right pelvis likely ovary IMPRESSION: Mild compression fractures in the midthoracic spine described above. Chronic. No retropulsed fragments. No central canal narrowing. Mild degenerative disc disease most conspicuous in the midthoracic region. Consider pelvic ultrasound. See above.
--- OUTSIDE RECORDS SUMMARY | 2024-11-19 13:45 | XMS_ITS | Encounter Summary ---
Author Organization [employer] ([place], [place], [place], [place]) Address [address] [place] [address] Care Team Providers Care Software Development Engineer Name Role Phone Nuris Sandra APRN Primary Care Provider [phone] Encounter Details Date Type Department Care Team (Latest Contact Info) Description 10/05/2024 Travel Social History Tobacco Use Types Packs/Day Years Used Date Smoking Tobacco: Former Cigarettes Smokeless Tobacco: Never Comments:Quit 2019 Comments No Sex and Gender Information Value Date Recorded Sex Assigned at Not on file Legal Sex Female 5:42 PM CDT Gender Identity Not on file Sexual Orientation Not on file documented as of this encounter Plan of Treatment Not on file documented as of this encounter Visit Diagnoses Not on filedocumented in this encounter Care Teams Software Development Engineer Relationship Specialty Start Date End Date Nuris Sandra, END FINDER FORMING DEPARTMENT [address] [place] [address] PCP - General Family Medicine 04/08/24 documented as of this encounter
--- OUTSIDE RECORDS SUMMARY | 2024-11-19 13:46 | XMS_ITS | Referral Summary ---
Author Organization [employer] ([place], [place], [place], [place]) Address [address] [place] [address] Care Team Providers Care Machine Sprayer Name Role Phone JocyNuris Bonnie GOLDBERG Primary Care Provider [phone] Encounters Date Type Department Care Team Description 10/05/2024 Travel 10/05/2024 8:51 AM EDT - 10/05/2024 11:59 PM EDT Hospital Encounter [facility] [place] Interventional Radiology Lab 1 [place] [address] Ganesh Wadsworth MD Absher, Dale R, MD Renal artery stenosis (HCC) Discharge Disposition: Home or Self Care from Last 3 Months Allergies Active Allergy Reactions Criticality Noted Date Comments Azithromycin 04/08/2024 Diphenhydramine-Zinc Acetate 024 Hydralazine Shortness Of Breath High 10/05/2024 Metoprolol Shortness Of Breath High 10/05/2024 Medications levothyroxine (SYNTHROID) 88 MCG tablet Take 1 tablet (88 mcg total) by mouth Daily (0600). Active amLODIPine (NORVASC) 10 MG tablet Take 1 tablet (10 mg total) by mouth daily. Active carvediloL (COREG) 25 MG tablet Take 1 tablet (25 mg total) by mouth 2 (two) times daily with breakfast and dinner. Active SITagliptin phosphate (JANUVIA) 50 MG tablet Take 1 tablet (50 mg total) by mouth daily. Active furosemide (LASIX) 20 MG tablet Take 1 tablet (20 mg total) by mouth daily. Active hydrOXYzine pamoate (VISTARIL) 50 MG capsule Take 1 capsule (50 mg total) by mouth 2 (two) times daily Look-alike/S ound-alike medication. Active montelukast (SINGULAIR) 10 mg tablet Take 1 tablet (10 mg total) by mouth nightly. Active rOPINIRole (REQUIP) 1 MG tablet Take 1 tablet (1 mg total) by mouth once at bedtime. Active atorvastatin (LIPITOR) 10 MG tablet Take 1 tablet (10 mg total) by mouth nightly. Active Social History Tobacco Use Types Packs/Day Years Used Date Smoking Tobacco: Former Cigarettes Smokeless Tobacco: Never Tobacco Cessation:Counseling Given: Not Answered Comments:Quit 2019 Comments No Sex and Gender Information Value Date Recorded Sex Assigned at Not on file Legal Sex Female 5:42 PM CDT Gender Identity Not on file Sexual Orientation Not on file Last Filed Vital Signs Vital Sign Reading [...] Mass Index 25.33 10/05/2024 9:40 AM EDT Plan of Treatment Not on file Procedures Procedure Name Priority Date/Time Associated Diagnosis Comments POCT-ACT Routine 10/05/2024 1:23 PM EDT IR RENAL ANGIOGRAM BILATERAL 1ST ORDER Routine 10/05/2024 1:19 PM EDT Renal artery stenosis (HCC) POCT-CREATININE Routine 10/05/2024 9:51 AM EDT from Last 3 Months Results * POC ACTIVATED CLOTTING TIME (10/05/2024 1:23 PM EDT) Activated Clotting Time 135 74 - 137 sec 10/05/2024 1:25 PM EDT [facility] Fixed Income Portfolio Manager [id number] 10/05/2024 1:25 PM EDT [facility] Blood 10/05/2024 1:23 PM EDT 10/05/2024 1:25 PM EDT Narrative [facility] - 10/05/2024 1:25 PM EDT Fixed Income Portfolio Manager ID is - [id number] Ganesh Wadsworth MD POINT OF CARE TEST ORDERABLES F inal Result [facility] [address] [phone] * IR RENAL ANGIOGRAM BILATERAL 1ST ORDER [...] of the renal artery. Subsequently, the Penumbra Toluca 6 Chadian thrombectomy catheter was used to remove the thrombus from the renal artery. A second stent was placed inside the previous stent. There was no residual thrombus. Images reviewed, interpreted, dictated and electronically signed by Madhu Cardona MD Voice mothercraft nurse technology (Datappraise) is used for the dictation of this note and sound-alike words might be erroneously placed despite reviewing this note for accuracy. Errors in dictation may reflect use of voice recognition software and not all errors in mothercraft nurse may have been detected prior to signing. Narrative 10/05/2024 7:15 PM EDT CO2 ABDOMINAL AORTOGRAM WITH RIGHT RENAL ARTERY STENTING AND MECHANICAL THROMBECTOMY HISTORY: Hypertension, renal insufficiency. FLUOROSCOPY TIME: 44.7 minutes RADIATION DOSE: Reference air kerma 9005 mGy. DAP: 03690 cGy.cm2 PROPHYLACTIC ANTIBIOTIC: The patient was administered [...] placed into the medical record. A 4 Chadian catheter was then inserted over a glidewire into the abdominal aorta. A CO2 arteriogram was performed. This demonstrates a high-grade stenosis of the right renal artery. Subsequently, a 5.5 Chadian sheath was inserted to the level of [...] inserted into the renal artery. The penumbra Toluca 6 Chadian catheter was then inserted and passed for [...] DOSE: Reference air kerma 9005 mGy. DAP: 31995 cGy.cm2 PROPHYLACTIC ANTIBIOTIC: The patient was administered [...] placed into the medical record. A 4 Chadian catheter was then inserted over a glidewire into the abdominal aorta. A CO2 arteriogram was performed. This demonstrates a high-grade stenosis of the right renal artery. Subsequently, a 5.5 Chadian sheath was inserted to the level of [...] inserted into the renal artery. The penumbra Toluca 6 Chadian catheter was then inserted and passed for [...] of the renal artery. Subsequently, the Penumbra Toluca 6 Chadian thrombectomy catheter was used to remove the thrombus from the renal artery. A second stent was placed inside the previous stent. There was no residual thrombus. Images reviewed, interpreted, dictated and electronically signed by Madhu Cardona MD Voice mothercraft nurse technology (Datappraise) is used for the dictation of this note and sound-alike words might be erroneously placed despite reviewing this note for accuracy. Errors in dictation may reflect use of voice recognition software and not all errors in mothercraft nurse may have been detected prior to signing. Ganesh Wadsworth MD [facility] [place] ORDERABLES Final Result * (ABNORMAL) POC-Creatinine (10/05/2024 9:51 AM EDT) POC-EGFR 40 mL/min/1. 73M2 10/05/2024 9:54 AM EDT [facility] Comment:Proceed with contras t if eGFR > 45 ml/min/1.73 when performed on the NovaSTAT strip Creatinine meter. Fixed Income Portfolio Manager [id number] 10/05/2024 9:54 AM EDT [facility] POC-Creatinine 1.4(H) 0.6 - 1.3 mg/dL 10/05/2024 9:54 AM EDT [facility] Blood 10/05/2024 9:51 AM EDT 10/05/2024 9:54 AM EDT Narrative [facility] - 10/05/2024 9:54 AM EDT Fixed Income Portfolio Manager ID is - [id number] us Ganesh Wadsworth MD POINT OF CARE TEST ORDERABLES F inal Result [facility] [address] [phone] from Last 3 Months Insurance [facility] MEDICARE PPO Care Teams Machine Sprayer Relationship Specialty Start Date End Date Nuris Sandra, SALON SHAMPOO ASSISTANT [address] [place] [address] PCP - General Family Medicine 04/08/24
--- OUTSIDE RECORDS SUMMARY | 2024-11-19 13:46 | XMS_ITS | Clinical Summary ---
Author Organization Jayme GALLOTEMI OD Address [facility] [place] [address] Phone Care Team Providers Care Wire Basket Maker Name Role Phone Unavailable Primary Care Provider Unavailabl e Social History Tobacco Use Types Packs/Day Years Used Date Smoking Tobacco: Never Assessed Comments Unknown Sex and Gender Information Value Date Recorded Sex Assigned at Not on file Legal Sex Female 9:10 PM EDT Gender Identity Not on file Sexual Orientation Not on file Plan of Treatment Health Maintenance Due Date Last Done Comments Wellness Exam Medicare 1958 Hepatitis C Screening 1972 DTaP/TDaP/Td (1 - Tdap) 1973 Cologuard 08/07/1999 Colon Cancer Screening 08/07/1999 Colonoscopy 08/07/1999 FIT 08/07/1999 Sigmoidoscopy 08/07/1999 Virtual Colonography 08/07/1999 Pneumococcal Vaccine 50+ (1 of 1 - PCV) 2004 Zoster (1 of 2) 2004 Bone Density Screening 08/07/2019 Breast Cancer Screening 04/30/2022 04/30/2020 COVID-19 Vaccine ( - 2023-2 5 season) 2024 Influenza Vaccine (#1) 2025 Hepatitis B Vaccine Aged Out No longe r eligible based on patient's age to complete this topic Meningococcal B Vaccine Aged Out No l onger eligible based on patient's age to complete this topic Procedures Procedure Name Priority Date/Time Associated Diagnosis Comments MM MAMMO DIGITAL CARY SCREEN BILAT Routine 04/30/2020 12:53 PM EST Screening breast examination from Last 3 Months or Most Recently Relevant to Health Maintenance Results * MM MAMMO DIGITAL CARY SCREEN BILAT (04/30/2020 12:53 PM EST) Anatomical Region Laterality Modality Breast Bilateral Mammography 05/03/2020 9:09 AM EST Impressions 05/03/2020 9:09 AM EST Benign finding ([id number]-5) ~ RECOMMENDATION: Routine screening mammogram in 1 year. ~ DISCLAIMER * Any patient with a palpable abnormality, unexplained by breast imaging, should be managed on clinical basis by the attending physician. * Breast imaging has a false negative rate of 15%. * The patient was notified by mail of the results of this examination. *The patient's information was entered into a reminder system with a target due date for the next mammogram, in accordance with the [employer] and the Society of Breast Imaging recommendations. Narrative 05/03/2020 9:09 AM EST Procedure:MM MAMMO DIGITAL CARY SCREEN BILAT ~ Reason for exam: screening, asymptomatic. Z12.39-Encounter for other screening for malignant neoplasm of utvihu-IYZ-34-CM ~ MM MAMMO DIGITAL CARY SCREEN BILAT Bilateral CC and MLO view(s) were taken. The breast tissue is heterogeneously dense. This may lower the sensitivity of mammography. Prior study comparison: None available No mammographic evidence of malignancy. Multiple scattered coarse calcifications bilaterally. ~ Procedure Note Aris Staton MD - 05/03/2020 Procedure:MM MAMMO DIGITAL CARY SCREEN BILAT ~ Reason for exam: screening, asymptomatic. Z12.39-Encounter for other screening for malignant neoplasm of vwvlur-DYH-66-CM ~ MM MAMMO DIGITAL CARY SCREEN BILAT Bilateral CC and MLO view(s) were taken. The breast tissue is heterogeneously dense. This may lower thesensitivity of mammography. Prior study comparison: None available No mammographic evidence of malignancy. Multiple scattered coarse calcifications bilaterally. ~ IMPRESSION: Benign finding (GCL-[id number]-4) ~ RECOMMENDATION: Routine screening mammogram in 1 year. ~ DISCLAIMER * Any patient with a palpable abnormality, unexplained by breast imaging, should be managed on clinical basis by the attending physician. * Breast imaging has a false negative rate of 15%. * The patient was notified by mail of the results of this examination. *The patient's information was entered into a reminder system with atarget due date for the next mammogram, in accordance with the [employer] and the Society of Breast Imaging recommendations. Nuris Jocy [facility] IMG MAMMOGRAPHY ORDERABLES Fin al Result from Last 3 Months or Most Recently Relevant to Health Maintenance Insurance [employer] MEDICARE PPO MR
--- OUTSIDE RECORDS SUMMARY | 2024-11-19 13:46 | XMS_ITS | Clinical Summary ---
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 Active Encounters Date Type Department Care Team Description 10/05/2024 8:51 AM EDT - 10/05/2024 11:59 PM EDT Hospital Encounter [facility] Inter[facility]iology [facility] [address] [place] [address] Ganesh Wadsworth MD Absher, Dale R, MD Renal artery stenosis (HCC) Discharge Disposition: Home or Self Care 10/05/2024 Travel from Last 3 Months Social History Tobacco Use Types Packs/Day Years [...] 10/05/2024 9:40 AM EDT Plan of Treatment Health Maintenance Due Date Last Done Comments CT Colonography 1954 Colonoscopy 1954 Colorectal Cancer Screening 1954 DXA SCAN 1954 FOBT/FIT 1954 Fit-DNA (Cologuard) 1954 Sigmoidoscopy 1954 Depression Screening (12+) 1966 Hepatitis C Screening 1972 DTAP/TDAP/TD VACCINES (1 - Tdap) 1973 Shingles Vaccine (Zoster) (1 of 2) 2004 Respiratory Syncytial Virus (RSV) Adult or (1 - Risk 60-74 years 1-dose series) 2014 Pneumococcal 50+ years (2 of 2 - PCV) 09/14/2020 09/15/2019 Breast Cancer Screening 04/30/2022 04/30/2020, 04/30 Falls Risk Screening 05/20/2024 Medicare Initial AWV [id number] 09/18/2024 COVID-19 VACCINE (7 - 2023-2 5 season) 2024 04/02/2024, 05/24/2022, 10/26/2021, Additional history exists Influenza Vaccine (#1) 2025 , 04/15/2023, 03/09/2019 Tobacco Cessation Counseling and Screening (12+) 10/05/2025 10/05/2024 Procedures Procedure Name Priority Date/Time Associated Diagnosis Comments POCT-ACT Routine 10/05/2024 1:23 PM EDT IR RENAL ANGIOGRAM BILATERAL 1ST ORDER Routine 10/05/2024 1:19 PM EDT Renal artery stenosis (HCC) POCT-CREATININE Routine 10/05/2024 9:51 AM EDT from Last 3 Months Results * POC ACTIVATED CLOTTING TIME (10/05/2024 1:23 PM EDT) Activated Clotting Time 135 74 - 137 sec 10/05/2024 1:25 PM EDT [facility] 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 Subsequently, the Penumbra Saint Joe 6 Tristanian thrombectomy catheter was used to remove the thrombus from the renal artery. A second stent was placed inside the previous stent. There was no residual thrombus. Images reviewed, interpreted, dictated and electronically signed by Madhu Cardona MD Voice transcription typist technology (Ecorithm) is used for the dictation of this note and sound-alike words might be erroneously placed despite reviewing this note for accuracy. Errors in dictation may reflect use of voice recognition software and not all errors in transcription typist may have been detected prior to signing. Narrative 10/05/2024 7:15 PM EDT CO2 ABDOMINAL AORTOGRAM WITH RIGHT RENAL ARTERY STENTING AND MECHANICAL THROMBECTOMY HISTORY: Hypertension, renal insufficiency. FLUOROSCOPY TIME: 44.7 minutes RADIATION DOSE: Reference air kerma 9005 mGy. DAP: 67566 cGy.cm2 PROPHYLACTIC ANTIBIOTIC: The patient was administered [...] placed into the medical record. A 4 Tristanian catheter was then inserted over a glidewire into the abdominal aorta. A CO2 arteriogram was performed. This demonstrates a high-grade stenosis of the right renal artery. Subsequently, a 5.5 Tristanian sheath was inserted to the level of [...] inserted into the renal artery. The penumbra Saint Joe 6 Tristanian catheter was then inserted and passed for [...] DOSE: Reference air kerma 9005 mGy. DAP: 52003 cGy.cm2 PROPHYLACTIC ANTIBIOTIC: The patient was administered [...] placed into the medical record. A 4 Tristanian catheter was then inserted over a glidewire into the abdominal aorta. A CO2 arteriogram was performed. This demonstrates a high-grade stenosis of the right renal artery. Subsequently, a 5.5 Tristanian sheath was inserted to the level of [...] inserted into the renal artery. The penumbra Saint Joe 6 Tristanian catheter was then inserted and passed for [...] of the renal artery. Subsequently, the Penumbra Saint Joe 6 Tristanian thrombectomy catheter was used to remove the thrombus from the renal artery. A second stent was placed inside the previous stent. There was no residual thrombus. Images reviewed, interpreted, dictated and electronically signed by Madhu Cardona MD Voice transcription typist technology (Ecorithm) is used for the dictation of this note and sound-alike words might be erroneously placed despite reviewing this note for accuracy. Errors in dictation may reflect use of voice recognition software and not all errors in transcription typist may have been detected prior to signing. us Ganesh Wadsworth MD IMG IR ORDERABLES Final Result * (ABNORMAL) POC-Creatinine (10/05/2024 9:51 AM EDT) POC-EGFR 40 mL/min/1. 73M2 10/05/2024 9:54 AM EDT [facility] Comment:Proceed with contras t if eGFR > 45 ml/min/1.73 when performed on the NovaSTAT strip Creatinine meter. Vegetable Washing Machine Operator [id number] 10/05/2024 9:54 AM EDT [facility] POC-Creatinine 1.4(H) 0.6 - 1.3 mg/dL 10/05/2024 9:54 AM EDT [facility] Blood 10/05/2024 9:51 AM EDT 10/05/2024 9:54 AM EDT Narrative [facility] - 10/05/2024 9:54 AM EDT Vegetable Washing Machine Operator ID is - [id number] us Ganesh Wadsworth MD POINT OF CARE TEST ORDERABLES F inal Result [facility] [address] [phone] from Last 3 Months Insurance [facility] MEDICARE PPO Care Teams Mining Plant Operator Relationship Specialty Start Date End Date Nuris Sandra, INSPECTOR [employer]YS [address] [place] [address] PCP - General Family Medicine 04/08/24
--- OUTSIDE RECORDS SUMMARY | 2024-11-19 13:46 | XMS_ITS | Data Portability ---
Author Organization [facility] Com[facility] Address [address] [place] [address] Assessment No assessment recorded. Plan of Treatment Reminders Order Date Submit Date Provider Last Modified By Organization Details Last Modified Time Details Appointments ANNUAL EXAM 2024 03:30P Ezekiel Sandra APRN Not available Not available Not available Lab HbA1c (hemoglob in A1c), blood [address], [address], 09/28/2024 13:31:57 urinalysi s, dipstick [address], [address], 08/14/2024 13:54:02 HbA1c (hemoglob in A1c), blood [address], [address], 06/29/2024 14:00:13 Referral None recorded. Procedures None recorded. Surgeries None recorded. Imaging MRI, lumbar spine, w/o contrast [address] ([facility]), [address], [place], [address], 11/19/2024 09:48:14 MRI, thoracic spine, w/o contrast - first available appt [address] (Scheduling), [address], [place], [address], 11/19/2024 09:48:36 LDCT, chest, for lung cancer screening - same day as mammo and dexa 2024 025 [facility] (Scheduling), [address], [place], [address], 07/24/2024 11:06:58 DEXA 2024 025 [facility] Scheduling Department -New Scheduling Process, [address] [place] [address] [address], [place], [address], 07/24/2024 13:14:58 MAMMO, screening , digital, bilateral - same day as dexa please 2024 025 [facility] -New Scheduling, [address] [place] [address] [facility] [address], [place], [address], 07/28/2024 06:22:41 US, duplex, renal artery - TRY TO SCHEDULE ON 05/08 SHE IS ALREADY HAVING ECHO AND STRESS TEST THAT DAY. 2023 024 [facility] (Scheduling), [address] [facility] [address], [place], [address], 05/08/2024 12:11:12 Medication Orders sertralin e 25 mg tablet 2024 025 [facility], [facility], [place], [address], 10/22/2024 12:54:13 Prolia 60 mg/mL subcutane ous syringe 2024 025 [email or web address] Not available 08/14/2024 14:08:50 Calcium 600 + D(3) 600 mg-10 mcg (400 unit) tablet 2024 025 [facility], [address] [place] [address], [address], 08/19/2024 11:55:57 cyclobenz aprine 10 mg tablet 2024 025 [facility], [address] [place] [address], [address], 08/14/2024 14:29:54 ondansetr on 4 mg disintegr ating tablet 2023 025 [facility], [address] [place] [address], [address], 08/14/2024 11:44:00 Patient TargetsNo targets recorded. Patient Instructions Encounter Date Encounter Id Patient Instructions Last Modified By Organization Details Last Modified Time 06/29/2024 [id number] diabetic eye exam* [email or web address] Not available 07/16/2024 14:02:07 Reason for Referral None Reported. Results Created Date Observation Date Name Description Value Unit Range Abnormal Flag Note LastModifiedBy Organization Detail LastModifiedTime 05/18/2005/19/2024 URINA LYSIS , COMPL ETE specific gravity 1.013 1.005- 1.030 normal Not Available [facility] ([facility]) [address] [facility], [place], [address], 05/19/2024 05:06:22 05/18/2005/19/2024 URINA LYSIS , COMPL ETE pH 5.5 5.0-7. 5 normal Not Available [facility] ([facility]) [address] [facility], [place], [address], 05/19/2024 05:06:22 05/18/20 24 05/19/2024 URINA LYSIS , COMPL ETE urine-color Yellow yellow Not Available [facility] ([facility]) [address] [place], [address], 05/19/2024 05:06:22 05/18/20 24 05/19/2024 URINA LYSIS , COMPL ETE appearance Clear clear Not Available [facility] ([facility]) [address] [facility], [place], [address], 05/19/2024 05:06:22 05/18/20 24 05/19/2024 URINA LYSIS , COMPL ETE WBC esterase 2+ negati ve abnormal Not Available [facility] ([facility]) [address] [facility], [place], [address], 05/19/2024 05:06:22 05/18/20 24 05/19/2024 URINA LYSIS , COMPL ETE protein Negati ve negati ve/tra ce Not Available [facility] ([facility]) [address] [facility], [place], [address], 05/19/2024 05:06:22 05/18/20 24 05/19/2024 URINA LYSIS , COMPL ETE glucose Negati ve negati ve Not Available [facility] ([facility]) [address] [facility], [place], [address], 05/19/2024 05:06:22 05/18/20 24 05/19/2024 URINA LYSIS , COMPL ETE ketones Negati ve negati ve Not Available [facility] ([facility]) [address] [facility], [place], [address], 05/19/2024 05:06:22 05/18/20 24 05/19/2024 URINA LYSIS , COMPL ETE occult blood Negati ve negati ve Not Available [facility] ([facility]) [address] [facility], [place], [address], 05/19/2024 05:06:22 05/18/20 24 05/19/2024 URINA LYSIS , COMPL ETE bilirubin Negati ve negati ve Not Available [facility] ([facility]) [address] [facility], [place], [address], 05/19/2024 05:06:22 12/30/20 24 05/19/2024 URINA LYSIS , COMPL ETE urobilinogen ,semi-qn 0.2 mg/dL 0.2-1. 0 normal Not Available [facility] ([facility]) [address] [facility], [place], [address], 05/19/2024 05:06:22 05/18/20 24 05/19/2024 URINA LYSIS , COMPL ETE nitrite, urine Negati ve negati ve Not Available [facility] ([facility]) [address] [facility], [place], [address], 05/19/2024 05:06:22 05/18/20 24 05/19/2024 URINA LYSIS , COMPL ETE microscopic examination See below: Micro scopi c was indic ated and was perfo rmed. Not Available [facility] ([facility]) [address] [facility], [place], [address], 05/19/2024 05:06:22 05/18/20 24 05/19/2024 URINA LYSIS , COMPL ETE WBC >30 /hpf 0 - 5 abnormal Not Available [facility] ([facility]) [address] [facility], [place], [address], 05/19/2024 05:06:22 05/18/20 24 05/19/2024 URINA LYSIS , COMPL ETE RBC None seen /hpf 0 - 2 Not Available [facility] ([facility]) [address] [place], [address], 05/19/2024 05:06:22 05/18/20 24 05/19/2024 URINA LYSIS , COMPL ETE epithelial cells (non renal) 0-10 /hpf 0 - 10 Not Available [facility] ([facility]) [address] [place], [address], 05/19/2024 05:06:22 05/18/20 24 05/19/2024 URINA LYSIS , COMPL ETE epithelial cells (renal) [employer]IST Not Available [facility] ([facility]) [address] [facility], [place], [address], 05/19/2024 05:06:22 05/18/20 24 05/19/2024 URINA LYSIS , COMPL ETE casts None seen /lpf none seen Not Available [facility] ([facility]) [address] [facility], [place], [address], 05/19/2024 05:06:22 05/18/20 24 05/19/2024 URINA LYSIS , COMPL ETE cast type [employer] SPECIALIST Not Available [facility] ([facility]) [address] [facility], [place], [address], 05/19/2024 05:06:22 05/18/20 24 05/19/2024 URINA LYSIS , COMPL ETE crystals [employer]MENT SPECIALIST Not Available [facility] ([facility]) [address] [facility], [place], [address], 05/19/2024 05:06:22 05/18/20 24 05/19/2024 URINA LYSIS , COMPL ETE crystal type [employer] SPECIALIST Not Available [facility] ([facility]) [address] [facility], [place], [address], 05/19/2024 05:06:22 05/18/20 24 05/19/2024 URINA LYSIS , COMPL ETE mucus threads [employer] SPECIALIST Not Available [facility] ([facility]) [address] [facility], [place], [address], 05/19/2024 05:06:22 05/18/20 24 05/19/2024 URINA LYSIS , COMPL ETE bacteria None seen none seen/f ew Not Available [facility] ([facility]) [address] [facility], [place], [address], 05/19/2024 05:06:22 05/18/20 24 05/19/2024 URINA LYSIS , COMPL ETE yeast [employer] SPECIALIST Not Available [facility] ([facility]) [address] [place], [address], 05/19/2024 05:06:22 05/18/20 24 05/19/2024 URINA LYSIS , COMPL ETE trichomonas [employer] SPECIALIST Not Available [facility] ([facility]) [address] [place], [address], 05/19/2024 05:06:22 05/18/20 24 05/19/2024 URINA LYSIS , COMPL ETE comment [employer]IP[employer] SPECIALIST Not Available [facility] ([facility]) [address] [place], [address], 05/19/2024 05:06:22 05/18/20 24 05/19/2024 URINA LYSIS , COMPL ETE microscopic examination [employer] SPECIALIST Not Available [facility] ([facility]) [address] [facility] [place], [address], 05/19/2024 05:06:22 05/18/20 24 05/19/2024 RENAL PANEL (10) glucose 129 mg/dL 70-99 above high normal Not Available [facility] ([facility]) [address] [facility] [place], [address], 05/19/2024 05:06:23 05/18/20 24 05/19/2024 RENAL PANEL (10) BUN 29 mg/dL 8-27 above high normal Not Available [facility] ([facility]) [address] [facility] [place], [address], 05/19/2024 05:06:23 05/18/20 24 05/19/2024 RENAL PANEL (10) creatinine 1.55 mg/dL 0.57-1 .00 above high normal Not Available [facility] ([facility]) [address] [facility] [place], [address], 05/19/2024 05:06:23 05/18/20 24 05/19/2024 RENAL PANEL (10) eGFR 36 mL/mi n/1.7 3 >59 below low normal Not Available [facility] ([facility]) [address] [place], [address], 05/19/2024 05:06:23 05/18/20 24 05/19/2024 RENAL PANEL (10) BUN/creatini ne ratio 19 12-28 normal Not Available [facility] ([facility]) [address] [place], [address], 05/19/2024 05:06:23 05/18/20 24 05/19/2024 RENAL PANEL (10) sodium 141 mmol/ L 134-14 4 normal Not Available [facility] ([facility]) [address] [place], [address], 05/19/2024 05:06:23 05/18/20 24 05/19/2024 RENAL PANEL (10) potassium 4.3 mmol/ L 3.5-5. 2 normal Not Available [facility] ([facility]) [address] [place], [address], 05/19/2024 05:06:23 05/18/20 24 05/19/2024 RENAL PANEL (10) chloride 102 mmol/ L 96-106 normal Not Available [facility] ([facility]) [address] [place], [address], 05/19/2024 05:06:23 05/18/20 24 05/19/2024 RENAL PANEL (10) carbon dioxide, total 22 mmol/ L 20-29 normal Not Available [facility] ([facility]) [address] [place], [address], 05/19/2024 05:06:23 05/18/20 24 05/19/2024 RENAL PANEL (10) calcium 9.9 mg/dL 8.7-10 .3 normal Not Available [facility] ([facility] [facility]) [address] [place], [address], 05/19/2024 05:06:23 05/18/20 24 05/19/2024 RENAL PANEL (10) phosphorus 3.2 mg/dL 3.0-4. 3 normal Not Available [facility] ([facility]) [address] [facility], [place], [address], 05/19/2024 05:06:23 05/18/20 24 05/19/2024 RENAL PANEL (10) albumin 4.7 g/dL 3.9-4. 9 normal Not Available [facility] ([facility]) [address] [facility], [place], [address], 05/19/2024 05:06:23 06/29/19 25 06/29/2024 HbA1c (hemo globi n A1c), blood HbA1c 6.4 Not Available [address], [address], 06/29/2024 08:00:49 08/15/19 25 08/14/2024 urina lysis , dipst ick Leukocytes Small Not Available [address], [address], 08/14/2024 13:36:42 08/15/19 25 08/14/2024 urina lysis , dipst ick Nitrite negati ve Not Available [address], [address], 08/14/2024 13:36:42 08/15/19 25 08/14/2024 urina lysis , dipst ick Urobilinogen .2 Not Available [address], [address], 08/14/2024 13:36:42 08/15/19 25 08/14/2024 urina lysis , dipst ick Protein Negati ve Not Available [address], [address], 08/14/2024 13:36:42 08/15/19 25 08/14/2024 urina lysis , dipst ick pH 5.5 Not Available [address], [address], 08/14/2024 13:36:42 08/15/19 25 08/14/2024 urina lysis , dipst ick Blood Negati ve Not Available [address], [address], 08/14/2024 13:36:42 08/15/19 25 08/14/2024 urina lysis , dipst ick Specific [place] 1.025 Not Available [address], [address], 08/14/2024 13:36:42 08/15/19 25 08/14/2024 urina lysis , dipst ick Ketone Negati ve Not Available [address], [address], 08/14/2024 13:36:42 08/15/19 25 08/14/2024 urina lysis , dipst ick Bilirubin Negati ve Not Available [address], [address], 08/14/2024 13:36:42 08/15/19 25 08/14/2024 urina lysis , dipst ick Glucose Negati ve Not Available [address], [address], 08/14/2024 13:36:42 08/15/19 25 08/14/2024 urina lysis , dipst ick Appearance Clear Not Available [address], [address], 08/14/2024 13:36:42 08/15/19 25 08/14/2024 urina lysis , dipst ick Color Yellow Not Available [address], [place], [address], 08/14/2024 13:36:42 09/17/19 25 09/17/2024 URINA LYSIS , COMPL ETE specific gravity 1.014 1.005- 1.030 normal Not Available [facility] ([facility]) [address] [facility], [place], [address], 09/17/2024 12:14:09 09/17/19 25 09/17/2024 URINA LYSIS , COMPL ETE pH 6.0 5.0-7. 5 normal Not Available [facility] ([facility]) [address] [place], [address], 09/17/2024 12:14:09 09/17/19 25 09/17/2024 URINA LYSIS , COMPL ETE urine-color Yellow yellow Not Available [facility] ([facility]) [address] [facility], [place], [address], 09/17/2024 12:14:09 09/17/19 25 09/17/2024 URINA LYSIS , COMPL ETE appearance Clear clear Not Available [facility] ([facility]) [address] [place], [address], 09/17/2024 12:14:09 09/17/19 25 09/17/2024 URINA LYSIS , COMPL ETE WBC esterase 2+ negati ve abnormal Not Available [facility] ([facility]) [address] [place], [address], 09/17/2024 12:14:09 09/17/19 25 09/17/2024 URINA LYSIS , COMPL ETE protein Trace negati ve/tra ce Not Available [facility] ([facility]) [address] [place], [address], 09/17/2024 12:14:09 09/17/19 25 09/17/2024 URINA LYSIS , COMPL ETE glucose Negati ve negati ve Not Available [facility] ([facility]) [address] [place], [address], 09/17/2024 12:14:09 09/17/19 25 09/17/2024 URINA LYSIS , COMPL ETE ketones Negati ve negati ve Not Available [facility] ([facility]) [address] [place], [address], 09/17/2024 12:14:09 09/17/19 25 09/17/2024 URINA LYSIS , COMPL ETE occult blood Negati ve negati ve Not Available [facility] ([facility]) [address] [place], [address], 09/17/2024 12:14:09 09/17/19 25 09/17/2024 URINA LYSIS , COMPL ETE bilirubin Negati ve negati ve Not Available [facility] ([facility]) [address] [place], [address], 09/17/2024 12:14:09 09/17/19 25 09/17/2024 URINA LYSIS , COMPL ETE urobilinogen ,semi-qn 0.2 mg/dL 0.2-1. 0 normal Not Available [facility] ([facility]) [address] [place], [address], 09/17/2024 12:14:09 09/17/19 25 09/17/2024 URINA LYSIS , COMPL ETE nitrite, urine Negati ve negati ve Not Available [facility] ([facility]) [address] [place], [address], 09/17/2024 12:14:09 09/17/19 25 09/17/2024 URINA LYSIS , COMPL ETE microscopic examination See below: Micro scopi c was indic ated and was perfo rmed. Not Available [facility] ([facility]) [address] [facility], [place], [address], 09/17/2024 12:14:09/17/19 25 09/17/2024 URINA LYSIS , COMPL ETE WBC >30 /hpf 0 - 5 abnormal Not Available [facility] ([facility]) [address] [facility], [place], [address], 09/17/2024 12:14:09 09/17/19 25 09/17/2024 URINA LYSIS , COMPL ETE RBC 0-2 /hpf 0 - 2 Not Available [facility] ([facility]) [address] [facility], [place], [address], 09/17/2024 12:14:09 09/17/19 25 09/17/2024 URINA LYSIS , COMPL ETE epithelial cells (non renal) 0-10 /hpf 0 - 10 Not Available [facility] ([facility]) [address] [facility], [place], [address], 09/17/2024 12:14:09/17/19 25 09/17/2024 URINA LYSIS , COMPL ETE epithelial cells (renal) [employer] SPECIALIST Not Available [facility] ([facility]) [address] [facility], [place], [address], 09/17/2024 12:14:09/17/19 25 09/17/2024 URINA LYSIS , COMPL ETE casts None seen /lpf none seen Not Available [facility] ([facility]) [address] [facility], [place], [address], 09/17/2024 12:14:09/17/19 25 09/17/2024 URINA LYSIS , COMPL ETE cast type [employer] SPECIALIST Not Available [facility] ([facility]) [address] [facility], [place], [address], 09/17/2024 12:14:09 09/17/19 25 09/17/2024 URINA LYSIS , COMPL ETE crystals [employer] SPECIALIST Not Available [facility] ([facility]) [address] [facility], [place], [address], 09/17/2024 12:14:09 09/17/19 25 09/17/2024 URINA LYSIS , COMPL ETE crystal type [employer] EQUIP[employer] SPECIALIST Not Available [facility]) [address] [facility], [place], [address], 09/17/2024 12:14:09 09/17/19 25 09/17/2024 URINA LYSIS , COMPL ETE mucus threads [employer] E[employer]IPMENT SPECIALIST Not Available [facility] ([facility]) [address] [facility], [place], [address], 09/17/2024 12:14:09 09/17/19 25 09/17/2024 URINA LYSIS , COMPL ETE bacteria None seen none seen/f ew Not Available [facility] ([facility]) [address] [facility], [place], [address], 09/17/2024 12:14:09/17/19 25 09/17/2024 URINA LYSIS , COMPL ETE yeast [employer] SPECIALIST Not Available [facility] ([facility]) [address] [facility], [place], [address], 09/17/2024 12:14:09/17/19 25 09/17/2024 URINA LYSIS , COMPL ETE trichomonas [employer] SPECIALIST Not Available [facility] ([facility]) [address] [facility], [place], [address], 09/17/2024 12:14:09/17/19 25 09/17/2024 URINA LYSIS , COMPL ETE comment [employer]IP[employer] SPECIALIST Not Available [facility] ([facility]) [address] [facility], [place], [address], 09/17/2024 12:14:09 09/17/19 25 09/17/2024 URINA LYSIS , COMPL ETE microscopic examination [employer] E[employer] SPECIALIST Not Available [facility]) [address] [facility] [place], [address], 09/17/2024 12:14:09 09/17/19 25 09/17/2024 RENAL PANEL (10) glucose 159 mg/dL 70-99 above high normal Not Available [facility] ([facility]) [address] [facility] [place], [address], 09/17/2024 12:14:10 09/17/19 25 09/17/2024 RENAL PANEL (10) BUN 21 mg/dL 8-27 normal Not Available [facility] ([facility]) [address] [facility] [place], [address], 09/17/2024 12:14:10 09/17/19 25 09/17/2024 RENAL PANEL (10) creatinine 2.67 mg/dL 0.57-1 .00 above high normal Not Available [facility] ([facility]) [address] [facility] [place], [address], 09/17/2024 12:14:10 09/17/19 25 09/17/2024 RENAL PANEL (10) eGFR 19 mL/mi n/1.7 3 >59 below low normal Not Available [facility] ([facility]) [address] [facility] [place], [address], 09/17/2024 12:14:10 09/17/19 25 09/17/2024 RENAL PANEL (10) BUN/creatini ne ratio 8 12-28 below low normal Not Available [facility] ([facility]) [address] [facility] [place], [address], 09/17/2024 12:14:10 09/17/19 25 09/17/2024 RENAL PANEL (10) sodium 140 mmol/ L 134-14 4 normal Not Available [facility] ([facility]) [address] [facility] [place], [address], 09/17/2024 12:14:10 09/17/19 25 09/17/2024 RENAL PANEL (10) potassium 4.2 mmol/ L 3.5-5. 2 normal Not Available [facility] ([facility]) [address] [facility] [place], [address], 09/17/2024 12:14:10 09/17/19 25 09/17/2024 RENAL PANEL (10) chloride 100 mmol/ L 96-106 normal Not Available [facility] ([facility]) [address] [place], [address], 09/17/2024 12:14:10 09/17/1909/17/2024 RENAL PANEL (10) carbon dioxide, total 24 mmol/ L 20-29 normal Not Available [facility] ([facility]) [address] [facility] [place], [address], 09/17/2024 12:14:10 09/17/19 25 09/17/2024 RENAL PANEL (10) calcium 9.6 mg/dL 8.7-10 .3 normal Not Available [facility] ([facility]) [address] [facility] [place], [address], 09/17/2024 12:14:10 09/17/19 25 09/17/2024 RENAL PANEL (10) phosphorus 3.3 mg/dL 3.0-4. 3 normal Not Available [facility] ([facility]) [address] [facility] [place], [address], 09/17/2024 12:14:10 09/17/19 25 09/17/2024 RENAL PANEL (10) albumin 4.6 g/dL 3.9-4. 9 normal Not Available [facility] ([facility]) [address] [facility] [place], [address], 09/17/2024 12:14:10 09/17/19 25 09/17/2024 PROT+ CREAT U (RAND OM) creatinine, urine 138.1 mg/dL not estab. normal Not Available [facility] ([facility]) [address] [facility], [place], [address], 09/17/2024 12:14:11 09/17/19 25 09/17/2024 PROT+ CREAT U (RAND OM) protein,tota l,urine 14.2 mg/dL not estab. normal Not Available [facility] ([facility]) [address] [facility], [place], [address], 09/17/2024 12:14:11 09/17/19 25 09/17/2024 PROT+ CREAT U (RAND OM) protein/crea t ratio 103 mg/g_ creat 0-200 Not Available [facility] ([facility]) [address] [facility], [place], [address], 09/17/2024 12:14:11 09/29/19 25 09/28/2024 HbA1c (hemo globi n A1c), blood HbA1c 6.3 Not Available [address], [address], 09/28/2024 08:19:01 09/30/19 25 09/30/2024 CBC WITH DIFFE RENTI AL/PL ATELE T WBC 7.4 x10e3 /uL 3.4-10 .8 normal Not Available [facility] ([facility]) [address] [facility], [place], [address], 09/30/2024 11:11:58 09/30/19 25 09/30/2024 CBC WITH DIFFE RENTI AL/PL ATELE T RBC 4.37 x10e6 /uL 3.77-5 .28 normal Not Available [facility] ([facility]) [address] [facility], [place], [address], 09/30/2024 11:11:58 09/30/19 25 09/30/2024 CBC WITH DIFFE RENTI AL/PL ATELE T hemoglobin 12.2 g/dL 11.1-1 5.9 normal Not Available [facility] ([facility]) [address] [place], [address], 09/30/2024 11:11:58 09/30/19 25 09/30/2024 CBC WITH DIFFE RENTI AL/PL ATELE T hematocrit 38.6 % 34.0-4 6.6 normal Not Available [facility] ([facility]) [address] [place], [address], 09/30/2024 11:11:58 09/30/19 25 09/30/2024 CBC WITH DIFFE RENTI AL/PL ATELE T MCV 88 fL 79-97 normal Not Available [facility] ([facility]) [address] [facility], [place], [address], 09/30/2024 11:11:58 09/30/19 25 09/30/2024 CBC WITH DIFFE RENTI AL/PL ATELE T MCH 27.9 pg 26.6-3 3.0 normal Not Available [facility] ([facility]) [address] [place], [address], 09/30/2024 11:11:58 09/30/19 25 09/30/2024 CBC WITH DIFFE RENTI AL/PL ATELE T MCHC 31.6 g/dL 31.5-3 5.7 normal Not Available [facility] ([facility]) [address] [place], [address], 09/30/2024 11:11:58 09/30/19 25 09/30/2024 CBC WITH DIFFE RENTI AL/PL ATELE T RDW 14.8 % 11.7-1 5.4 Not Available [facility] ([facility]) [address] [place], [address], 09/30/2024 11:11:58 09/30/19 25 09/30/2024 CBC WITH DIFFE RENTI AL/PL ATELE T platelets 239 x10e3 /uL 150-45 0 normal Not Available [facility] ([facility]) [address] [facility], [place], [address], 09/30/2024 11:11:58 09/30/19 25 09/30/2024 CBC WITH DIFFE RENTI AL/PL ATELE T neutrophils 60 % not estab. normal Not Available [facility] ([facility]) [address] [facility], [place], [address], 09/30/2024 11:11:58 09/30/19 25 09/30/2024 CBC WITH DIFFE RENTI AL/PL ATELE T lymphs 31 % not estab. normal Not Available [facility] ([facility]) [address] [facility], [place], [address], 09/30/2024 11:11:58 09/30/19 25 09/30/2024 CBC WITH DIFFE RENTI AL/PL ATELE T monocytes 6 % not estab. normal Not Available [facility] ([facility]) [address] [facility], [place], [address], 09/30/2024 11:11:58 09/30/19 25 09/30/2024 CBC WITH DIFFE RENTI AL/PL ATELE T eos 2 % not estab. normal Not Available [facility] ([facility]) [address] [facility], [place], [address], 09/30/2024 11:11:58 09/30/1909/30/2024 CBC WITH DIFFE RENTI AL/PL ATELE T basos 1 % not estab. normal Not Available [facility] ([facility]) [address] [facility], [place], [address], 09/30/2024 11:11:58 09/30/19 25 09/30/2024 CBC WITH DIFFE RENTI AL/PL ATELE T immature cells [employer]IST Not Available [facility] ([facility]) [address] [facility], [place], [address], 09/30/2024 11:11:58 09/30/19 25 09/30/2024 CBC WITH DIFFE RENTI AL/PL ATELE T neutrophils (absolute) 4.4 x10e3 /uL 1.4-7. 0 normal Not Available [facility] ([facility]) [address] [place], [address], 09/30/2024 11:11:58 09/30/19 25 09/30/2024 CBC WITH DIFFE RENTI AL/PL ATELE T lymphs (absolute) 2.3 x10e3 /uL 0.7-3. 1 normal Not Available [facility] ([facility]) [address] [place], [address], 09/30/2024 11:11:58 09/30/19 25 09/30/2024 CBC WITH DIFFE RENTI AL/PL ATELE T monocytes(ab solute) 0.4 x10e3 /uL 0.1-0. 9 normal Not Available [facility] ([facility]) [address] [place], [address], 09/30/2024 11:11:58 09/30/19 25 09/30/2024 CBC WITH DIFFE RENTI AL/PL ATELE T eos (absolute) 0.2 x10e3 /uL 0.0-0. 4 normal Not Available [facility] ([facility]) [address] [place], [address], 09/30/2024 11:11:58 09/30/19 25 09/30/2024 CBC WITH DIFFE RENTI AL/PL ATELE T baso (absolute) 0.0 x10e3 /uL 0.0-0. 2 normal Not Available [facility] ([facility]) [address] [place], [address], 09/30/2024 11:11:58 09/30/19 25 09/30/2024 CBC WITH DIFFE RENTI AL/PL ATELE T immature granulocytes 0 % not estab. Not Available [facility] ([facility]) [address] [facility], [place], [address], 09/30/2024 11:11:58 09/30/19 25 09/30/2024 CBC WITH DIFFE RENTI AL/PL ATELE T immature grans (abs) 0.0 x10e3 /uL 0.0-0. 1 Not Available [facility] ([facility]) [address] [facility], [place], [address], 09/30/2024 11:11:58 09/30/19 25 09/30/2024 CBC WITH DIFFE RENTI AL/PL ATELE T NRBC [employer]IST Not Available [facility] ([facility]) [address] [facility], [place], [address], 09/30/2024 11:11:58 09/30/19 25 09/30/2024 CBC WITH DIFFE RENTI AL/PL ATELE T hematology comments: [employer] SPECIALIST Not Available [facility] ([facility]) [address] [facility], [place], [address], 09/30/2024 11:11:58 09/30/19 25 09/30/2024 URINA LYSIS , COMPL ETE specific gravity 1.014 1.005- 1.030 normal Not Available [facility] ([facility]) [address] [facility], [place], [address], 09/30/2024 11:11:59 09/30/19 25 09/30/2024 URINA LYSIS , COMPL ETE pH 6.5 5.0-7. 5 normal Not Available [facility] ([facility]) [address] [facility], [place], [address], 09/30/2024 11:11:59 09/30/19 25 09/30/2024 URINA LYSIS , COMPL ETE urine-color Yellow yellow Not Available [facility] ([facility]) [address] [facility], [place], [address], 09/30/2024 11:11:59 09/30/19 25 09/30/2024 URINA LYSIS , COMPL ETE appearance Clear clear Not Available [facility] ([facility]) [address] [facility], [place], [address], 09/30/2024 11:11:59 09/30/19 25 09/30/2024 URINA LYSIS , COMPL ETE WBC esterase 2+ negati ve abnormal Not Available [facility] ([facility]) [address] [facility], [place], [address], 09/30/2024 11:11:59 09/30/19 25 09/30/2024 URINA LYSIS , COMPL ETE protein Negati ve negati ve/tra ce Not Available [facility] ([facility]) [address] [facility], [place], [address], 09/30/2024 11:11:59 09/30/19 25 09/30/2024 URINA LYSIS , COMPL ETE glucose Negati ve negati ve Not Available [facility] ([facility]) [address] [facility], [place], [address], 09/30/2024 11:11:59 09/30/19 25 09/30/2024 URINA LYSIS , COMPL ETE ketones Negati ve negati ve Not Available [facility] ([facility]) [address] [facility], [place], [address], 09/30/2024 11:11:59 09/30/19 25 09/30/2024 URINA LYSIS , COMPL ETE occult blood Negati ve negati ve Not Available [facility] ([facility]) [address] [place], [address], 09/30/2024 11:11:59 09/30/19 25 09/30/2024 URINA LYSIS , COMPL ETE bilirubin Negati ve negati ve Not Available [facility] ([facility]) [address] [place], [address], 09/30/2024 11:11:59 09/30/19 25 09/30/2024 URINA LYSIS , COMPL ETE urobilinogen ,semi-qn 0.2 mg/dL 0.2-1. 0 normal Not Available [facility] ([facility]) [address] [place], [address], 09/30/2024 11:11:59 09/30/19 25 09/30/2024 URINA LYSIS , COMPL ETE nitrite, urine Negati ve negati ve Not Available [facility] ([facility]) [address] [facility], [place], [address], 09/30/2024 11:11:59 09/30/19 25 09/30/2024 URINA LYSIS , COMPL ETE microscopic examination See below: Micro scopi c was indic ated and was perfo rmed. Not Available [facility] ([facility]) [address] [facility], [place], [address], 09/30/2024 11:11:59 09/30/19 25 09/30/2024 URINA LYSIS , COMPL ETE WBC 11-30 /hpf 0 - 5 abnormal Not Available [facility] ([facility]) [address] [place], [address], 09/30/2024 11:11:59 09/30/19 25 09/30/2024 URINA LYSIS , COMPL ETE RBC None seen /hpf 0 - 2 Not Available [facility] ([facility]) [address] [place], [address], 09/30/2024 11:11:59 09/30/19 25 09/30/2024 URINA LYSIS , COMPL ETE epithelial cells (non renal) 0-10 /hpf 0 - 10 Not Available [facility] ([facility]) [address] [place], [address], 09/30/2024 11:11:59 09/30/19 25 09/30/2024 URINA LYSIS , COMPL ETE epithelial cells (renal) [employer]IST Not Available [facility] ([facility]) [address] [facility], [place], [address], 09/30/2024 11:11:59 09/30/19 25 09/30/2024 URINA LYSIS , COMPL ETE casts None seen /lpf none seen Not Available [facility] ([facility]) [address] [facility], [place], [address], 09/30/2024 11:11:59 09/30/19 25 09/30/2024 URINA LYSIS , COMPL ETE cast type [employer]IST Not Available [facility] ([facility]) [address] [facility], [place], [address], 09/30/2024 11:11:59 09/30/19 25 09/30/2024 URINA LYSIS , COMPL ETE crystals [employer]IST Not Available [facility] ([facility]) [address] [place], [address], 09/30/2024 11:11:59 09/30/19 25 09/30/2024 URINA LYSIS , COMPL ETE crystal type [employer] SPECIALIST Not Available [facility] ([facility]) [address] [facility], [place], [address], 09/30/2024 11:11:59 09/30/19 25 09/30/2024 URINA LYSIS , COMPL ETE mucus threads [employer] SPECIALIST Not Available [facility] ([facility]) [address] [place], [address], 09/30/2024 11:11:59 09/30/19 25 09/30/2024 URINA LYSIS , COMPL ETE bacteria None seen none seen/f ew Not Available [facility] ([facility]) [address] [place], [address], 09/30/2024 11:11:59 09/30/19 25 09/30/2024 URINA LYSIS , COMPL ETE yeast [employer]IST Not Available [facility] ([facility]) [address] [facility] [place], [address], 09/30/2024 11:11:59 09/30/19 25 09/30/2024 URINA LYSIS , COMPL ETE trichomonas [employer]IST Not Available [facility] ([facility]) [address] [facility] [place], [address], 09/30/2024 11:11:59 09/30/19 25 09/30/2024 URINA LYSIS , COMPL ETE comment [employer] SPECIALIST Not Available [facility] ([facility]) [address] [facility] [place], [address], 09/30/2024 11:11:59 09/30/19 25 09/30/2024 URINA LYSIS , COMPL ETE microscopic examination [employer]IST Not Available [facility] ([facility]) [address] [facility] [place], [address], 09/30/2024 11:11:59 09/30/19 25 09/30/2024 RENAL PANEL (10) glucose 133 mg/dL 70-99 above high normal Not Available [facility] ([facility]) [address] [facility] [place], [address], 09/30/2024 11:12:00 09/30/19 25 09/30/2024 RENAL PANEL (10) BUN 21 mg/dL 8-27 normal Not Available [facility] ([facility]) [address] [facility] [place], [address], 09/30/2024 11:12:00 09/30/19 25 09/30/2024 RENAL PANEL (10) creatinine 1.41 mg/dL 0.57-1 .00 above high normal Not Available [facility] ([facility]) [address] [facility] [place], [address], 09/30/2024 11:12:00 09/30/19 25 09/30/2024 RENAL PANEL (10) eGFR 40 mL/mi n/1.7 3 >59 below low normal Not Available [facility] ([facility]) [address] [place], [address], 09/30/2024 11:12:00 09/30/19 25 09/30/2024 RENAL PANEL (10) BUN/creatini ne ratio 15 12-28 normal Not Available [facility] ([facility]) [address] [place], [address], 09/30/2024 11:12:00 09/30/19 25 09/30/2024 RENAL PANEL (10) sodium 138 mmol/ L 134-14 4 normal Not Available [facility] ([facility]) [address] [place], [address], 09/30/2024 11:12:00 09/30/19 25 09/30/2024 RENAL PANEL (10) potassium 4.4 mmol/ L 3.5-5. 2 normal Not Available [facility] ([facility]) [address] [place], [address], 09/30/2024 11:12:00 09/30/1909/30/2024 RENAL PANEL (10) chloride 100 mmol/ L 96-106 normal Not Available [facility] ([facility]) [address] [place], [address], 09/30/2024 11:12:00 09/30/19 25 09/30/2024 RENAL PANEL (10) carbon dioxide, total 23 mmol/ L 20-29 normal Not Available [facility] ([facility]) [address] [place], [address], 09/30/2024 11:12:00 09/30/19 25 09/30/2024 RENAL PANEL (10) calcium 10.0 mg/dL 8.7-10 .3 normal Not Available [facility] ([facility]) [address] [place], [address], 09/30/2024 11:12:00 09/30/19 25 09/30/2024 RENAL PANEL (10) phosphorus 3.0 mg/dL 3.0-4. 3 normal Not Available [facility] ([facility]) [address] [facility], [place], [address], 09/30/2024 11:12:00 09/30/19 25 09/30/2024 RENAL PANEL (10) albumin 4.4 g/dL 3.9-4. 9 normal Not Available [facility] ([facility]) [address] [facility], [place], [address], 09/30/2024 11:12:00 09/30/19 25 09/30/2024 PROT+ CREAT U (RAND OM) creatinine, urine 101.2 mg/dL not estab. normal Not Available [facility] ([facility]) [address] [facility], [place], [address], 09/30/2024 11:12:01 09/30/19 25 09/30/2024 PROT+ CREAT U (RAND OM) protein,tota l,urine 10.0 mg/dL not estab. normal Not Available [facility] ([facility]) [address] [facility], [place], [address], 09/30/2024 11:12:01 09/30/19 25 09/30/2024 PROT+ CREAT U (RAND OM) protein/crea t ratio 99 mg/g_ creat 0-200 Not Available [facility] ([facility]) [address] [facility], [place], [address], 09/30/2024 11:12:01 10/29/19 25 10/29/2024 CBC WITH DIFFE RENTI AL/PL ATELE T WBC 7.4 x10e3 /uL 3.4-10 .8 normal Not Available [facility] ([facility]) [address] [facility], [place], [address], 10/30/2024 06:09:28 10/29/19 25 10/29/2024 CBC WITH DIFFE RENTI AL/PL ATELE T RBC 4.07 x10e6 /uL 3.77-5 .28 normal Not Available [facility] ([facility]) [address] [place], [address], 10/30/2024 06:09:28 10/29/19 25 10/29/2024 CBC WITH DIFFE RENTI AL/PL ATELE T hemoglobin 11.8 g/dL 11.1-1 5.9 normal Not Available [facility] ([facility]) [address] [place], [address], 10/30/2024 06:09:28 10/29/1910/29/2024 CBC WITH DIFFE RENTI AL/PL ATELE T hematocrit 36.3 % 34.0-4 6.6 normal Not Available [facility] ([facility]) [address] [place], [address], 10/30/2024 06:09:28 10/29/19 25 10/29/2024 CBC WITH DIFFE RENTI AL/PL ATELE T MCV 89 fL 79-97 normal Not Available [facility] ([facility]) [address] [place], [address], 10/30/2024 06:09:28 10/29/19 25 10/29/2024 CBC WITH DIFFE RENTI AL/PL ATELE T MCH 29.0 pg 26.6-3 3.0 normal Not Available [facility] ([facility]) [address] [place], [address], 10/30/2024 06:09:28 10/29/19 25 10/29/2024 CBC WITH DIFFE RENTI AL/PL ATELE T MCHC 32.5 g/dL 31.5-3 5.7 normal Not Available [facility] ([facility]) [address] [place], [address], 10/30/2024 06:09:28 10/29/19 25 10/29/2024 CBC WITH DIFFE RENTI AL/PL ATELE T RDW 14.7 % 11.7-1 5.4 Not Available [facility] ([facility]) [address] [facility], [place], [address], 10/30/2024 06:09:28 10/29/19 25 10/29/2024 CBC WITH DIFFE RENTI AL/PL ATELE T platelets 187 x10e3 /uL 150-45 0 normal Not Available [facility] ([facility]) [address] [facility], [place], [address], 10/30/2024 06:09:28 10/29/1910/29/2024 CBC WITH DIFFE RENTI AL/PL ATELE T neutrophils 67 % not estab. normal Not Available [facility] ([facility]) [address] [facility], [place], [address], 10/30/2024 06:09:28 10/29/19 25 10/29/2024 CBC WITH DIFFE RENTI AL/PL ATELE T lymphs 24 % not estab. normal Not Available [facility] ([facility]) [address] [facility], [place], [address], 10/30/2024 06:09:28 10/29/19 25 10/29/2024 CBC WITH DIFFE RENTI AL/PL ATELE T monocytes 6 % not estab. normal Not Available [facility] ([facility]) [address] [facility], [place], [address], 10/30/2024 06:09:28 10/29/19 25 10/29/2024 CBC WITH DIFFE RENTI AL/PL ATELE T eos 2 % not estab. normal Not Available [facility] ([facility]) [address] [facility], [place], [address], 10/30/2024 06:09:28 10/29/19 25 10/29/2024 CBC WITH DIFFE RENTI AL/PL ATELE T basos 1 % not estab. normal Not Available [facility] ([facility]) [address] [place], [address], 10/30/2024 06:09:28 10/29/19 25 10/29/2024 CBC WITH DIFFE RENTI AL/PL ATELE T immature cells [employer] SPECIALIST Not Available [facility] ([facility]) [address] [facility], [place], [address], 10/30/2024 06:09:28 10/29/19 25 10/29/2024 CBC WITH DIFFE RENTI AL/PL ATELE T neutrophils (absolute) 5.0 x10e3 /uL 1.4-7. 0 normal Not Available [facility] ([facility]) [address] [facility], [place], [address], 10/30/2024 06:09:28 10/29/19 25 10/29/2024 CBC WITH DIFFE RENTI AL/PL ATELE T lymphs (absolute) 1.7 x10e3 /uL 0.7-3. 1 normal Not Available [facility] ([facility]) [address] [place], [address], 10/30/2024 06:09:28 10/29/19 25 10/29/2024 CBC WITH DIFFE RENTI AL/PL ATELE T monocytes(ab solute) 0.5 x10e3 /uL 0.1-0. 9 normal Not Available [facility] ([facility]) [address] [place], [address], 10/30/2024 06:09:28 10/29/19 25 10/29/2024 CBC WITH DIFFE RENTI AL/PL ATELE T eos (absolute) 0.2 x10e3 /uL 0.0-0. 4 normal Not Available [facility] ([facility]) [address] [place], [address], 10/30/2024 06:09:28 10/29/19 25 10/29/2024 CBC WITH DIFFE RENTI AL/PL ATELE T baso (absolute) 0.1 x10e3 /uL 0.0-0. 2 normal Not Available [facility] ([facility]) [address] [facility], [place], [address], 10/30/2024 06:09:28 10/29/19 25 10/29/2024 CBC WITH DIFFE RENTI AL/PL ATELE T immature granulocytes 0 % not estab. Not Available [facility] ([facility]) [address] [facility], [place], [address], 10/30/2024 06:09:28 10/29/19 25 10/29/2024 CBC WITH DIFFE RENTI AL/PL ATELE T immature grans (abs) 0.0 x10e3 /uL 0.0-0. 1 Not Available [facility] ([facility]) [address] [facility], [place], [address], 10/30/2024 06:09:28 10/29/19 25 10/29/2024 CBC WITH DIFFE RENTI AL/PL ATELE T NRBC [employer] SPECIALIST Not Available [facility] ([facility]) [address] [facility], [place], [address], 10/30/2024 06:09:28 10/29/19 25 10/29/2024 CBC WITH DIFFE RENTI AL/PL ATELE T hematology comments: [employer] SPECIALIST Not Available [facility] ([facility]) [address] [facility], [place], [address], 10/30/2024 06:09:28 10/29/19 25 10/29/2024 UA/M W/RFL X MYKE PRITCHETT specific gravity 1.016 1.005- 1.030 normal Not Available [facility] ([facility]) [address] [facility], [place], [address], 10/30/2024 06:09:29 10/29/19 25 10/29/2024 UA/M W/RFL X CULTU RE, ROUTI NE pH 6.5 5.0-7. 5 normal Not Available [facility] ([facility]) [address] [place], [address], 10/30/2024 06:09:29 10/29/19 25 10/29/2024 UA/M W/RFL X CULTU RE, ROUTI NE urine-color Yellow yellow Not Available [facility] ([facility]) [address] [place], [address], 10/30/2024 06:09:29 10/29/19 25 10/29/2024 UA/M W/RFL X CULTU RE, ROUTI NE appearance Clear clear Not Available [facility] ([facility]) [address] [place], [address], 10/30/2024 06:09:29 10/29/19 25 10/29/2024 UA/M W/RFL X CULTU RE, ROUTI NE WBC esterase 1+ negati ve abnormal Not Available [facility] ([facility]) [address] [place], [address], 10/30/2024 06:09:29 10/29/19 25 10/29/2024 UA/M W/RFL X CULTU RE, ROUTI NE protein 1+ negati ve/tra ce abnormal Not Available [facility] ([facility]) [address] [place], [address], 10/30/2024 06:09:29 10/29/19 25 10/29/2024 UA/M W/RFL X CULTU RE, ROUTI NE glucose Negati ve negati ve Not Available [facility] ([facility]) [address] [place], [address], 10/30/2024 06:09:29 10/29/19 25 10/29/2024 UA/M W/RFL X CULTU RE, ROUTI NE ketones Trace negati ve abnormal Not Available [facility] ([facility]) [address] [facility], [place], [address], 10/30/2024 06:09:29 10/29/19 25 10/29/2024 UA/M W/RFL X CULTU RE, ROUTI NE occult blood Negati ve negati ve Not Available [facility] ([facility]) [address] [facility], [place], [address], 10/30/2024 06:09:29 10/29/19 25 10/29/2024 UA/M W/RFL X CULTU RE, ROUTI NE bilirubin Negati ve negati ve Not Available [facility] ([facility]) [address] [facility], [place], [address], 10/30/2024 06:09:29 10/29/19 25 10/29/2024 UA/M W/RFL X CULTU RE, ROUTI NE urobilinogen ,semi-qn 1.0 mg/dL 0.2-1. 0 normal Not Available [facility] ([facility]) [address] [facility], [place], [address], 10/30/2024 06:09:29 10/29/19 25 10/29/2024 UA/M W/RFL X CULTU RE, ROUTI NE nitrite, urine Negati ve negati ve Not Available [facility] ([facility]) [address] [place], [address], 10/30/2024 06:09:29 10/29/1910/29/2024 UA/M W/RFL X CULTU RE, ROUTI NE microscopic examination See below: Micro scopi c was indic ated and was perfo rmed. Not Available [facility] ([facility]) [address] [place], [address], 10/30/2024 06:09:29 10/29/19 25 10/29/2024 UA/M W/RFL X CULTU RE, ROUTI NE WBC 0-5 /hpf 0 - 5 Not Available [facility] ([facility]) [address] [facility], [place], [address], 10/30/2024 06:09:29 10/29/19 25 10/29/2024 UA/M W/RFL X CULTU RE, ROUTI NE RBC 0-2 /hpf 0 - 2 Not Available [facility] ([facility]) [address] [facility], [place], [address], 10/30/2024 06:09:29 10/29/19 25 10/29/2024 UA/M W/RFL X CULTU RE, ROUTI NE epithelial cells (non renal) >10 /hpf 0 - 10 abnormal Not Available [facility] ([facility]) [address] [facility], [place], [address], 10/30/2024 06:09:29 10/29/19 25 10/29/2024 UA/M W/RFL X CULTU RE, ROUTI NE epithelial cells (renal) [employer]IST Not Available [facility] ([facility]) [address] [facility], [place], [address], 10/30/2024 06:09:29 10/29/19 25 10/29/2024 UA/M W/RFL X CULTU RE, ROUTI NE casts Presen t /lpf none seen abnormal Not Available [facility] ([facility]) [address] [facility], [place], [address], 10/30/2024 06:09:29 10/29/19 25 10/29/2024 UA/M W/RFL X CULTU RE, ROUTI NE cast type Hyalin e casts n/a Not Available [facility] ([facility]) [address] [place], [address], 10/30/2024 06:09:29 10/29/19 25 10/29/2024 UA/M W/RFL X CULTU RE, ROUTI NE crystals Presen t n/a abnormal Not Available [facility] ([facility]) [address] [facility], [place], [address], 10/30/2024 06:09:29 10/29/19 25 10/29/2024 UA/M W/RFL X CULTU RE, ROUTI NE crystal type Calciu m Oxalat e n/a Not Available [facility] ([facility]) [address] [facility], [place], [address], 10/30/2024 06:09:29 10/29/19 25 10/29/2024 UA/M W/RFL X CULTU RE, ROUTI NE mucus threads Presen t not estab. Not Available [facility] ([facility]) [address] [facility], [place], [address], 10/30/2024 06:09:29 10/29/19 25 10/29/2024 UA/M W/RFL X CULTU RE, ROUTI NE bacteria None seen none seen/f ew Not Available [facility] ([facility]) [address], [place], [address], 10/30/2024 06:09:29 10/29/19 25 10/29/2024 UA/M W/RFL X CULTU RE, ROUTI NE yeast [employer]IST Not Available [facility] ([facility]) [address] [facility], [place], [address], 10/30/2024 06:09:29 10/29/19 25 10/29/2024 UA/M W/RFL X CULTU RE, ROUTI NE trichomonas [employer] Not Available [facility] ([facility]) [address] [facility], [place], [address], 10/30/2024 06:09:29 10/29/19 25 10/29/2024 UA/M W/RFL X CULTU RE, ROUTI NE comment [employer] Not Available [facility] ([facility]) [address], [place], [address], 10/30/2024 06:09:29 10/29/19 25 10/29/2024 UA/M W/RFL X CULTU RE, ROUTI NE microscopic examination [employer] Not Available [facility] ([facility]) [address] [facility], [place], [address], 10/30/2024 06:09:29 10/29/19 25 10/29/2024 UA/M W/RFL X CULTU RE, ROUTI NE urinalysis reflex Commen t This speci men has refle xed to a Urine Cultu re. Not Available [facility] ([facility]) [address] [facility], [place], [address], 10/30/2024 06:09:29 10/29/19 25 10/30/2024 UA/M W/RFL X CULTU RE, ROUTI NE urine culture, routine Final report Not Available [facility] ([facility]) [address] [facility], [place], [address], 10/30/2024 06:09:29 10/29/19 25 10/30/2024 UA/M W/RFL X CULTU RE, ROUTI NE result 1 COMMEN T Mixed uroge nital christos Less than 10,00 0 colon ies/m L Not Available [facility] ([facility]) [address] [facility], [place], [address], 10/30/2024 06:09:29 10/29/1910/29/2024 RENAL PANEL (10) glucose 136 mg/dL 70-99 above high normal Not Available [facility] ([facility]) [address] [place], [address], 10/30/2024 06:09:30 10/29/19 25 10/29/2024 RENAL PANEL (10) BUN 19 mg/dL 8-27 normal Not Available [facility] ([facility]) [address] [place], [address], 10/30/2024 06:09:30 10/29/19 25 10/29/2024 RENAL PANEL (10) creatinine 1.65 mg/dL 0.57-1 .00 above high normal Not Available [facility] ([facility]) [address] [place], [address], 10/30/2024 06:09:30 10/29/19 25 10/29/2024 RENAL PANEL (10) eGFR 33 mL/mi n/1.7 3 >59 below low normal Not Available [facility] ([facility]) [address] [place], [address], 10/30/2024 06:09:30 10/29/19 25 10/29/2024 RENAL PANEL (10) BUN/creatini ne ratio 12 - normal Not Available [facility] ([facility]) [address] [place], [address], 10/30/2024 06:09:30 10/29/19 25 10/29/2024 RENAL PANEL (10) sodium 139 mmol/ L 134-14 4 normal Not Available [facility] ([facility]) [address] [place], [address], 10/30/2024 06:09:30 10/29/19 25 10/29/2024 RENAL PANEL (10) potassium 4.0 mmol/ L 3.5-5. 2 normal Not Available [facility] ([facility]) [address] [place], [address], 10/30/2024 06:09:30 10/29/19 25 10/29/2024 RENAL PANEL (10) chloride 99 mmol/ L 96-106 normal Not Available [facility] ([facility]) [address] [place], [address], 10/30/2024 06:09:30 10/29/19 25 10/29/2024 RENAL PANEL (10) carbon dioxide, total 21 mmol/ L 20-29 normal Not Available [facility] ([facility]) [address] [place], [address], 10/30/2024 06:09:30 10/29/19 25 10/29/2024 RENAL PANEL (10) calcium 10.0 mg/dL 8.7-10 .3 normal Not Available [facility] ([facility]) [address] [facility] [place], [address], 10/30/2024 06:09:30 10/29/19 25 10/29/2024 RENAL PANEL (10) phosphorus 2.8 mg/dL 3.0-4. 3 below low normal Not Available [facility] ([facility]) [address] [place], [address], 10/30/2024 06:09:30 10/29/19 25 10/29/2024 RENAL PANEL (10) albumin 4.7 g/dL 3.9-4. 9 normal Not Available [facility] ([facility]) [address] [place], [address], 10/30/2024 06:09:30 10/29/19 25 10/29/2024 ALBUM IN/CR EAT RATIO , DARRYLO M UR creatinine, urine 177.6 mg/dL not estab. normal Not Available [facility] ([facility]) [address] [place], [address], 10/30/2024 06:09:30 10/29/19 25 10/29/2024 ALBUM IN/CR EAT RATIO , RANDO M UR albumin, urine 311.2 ug/mL not estab. Not Available [facility] ([facility]) [address] [place], [address], 10/30/2024 06:09:30 10/29/19 25 10/29/2024 ALBUM IN/CR EAT RATIO , RANDO M UR alb/creat ratio 175 mg/g_ creat 0-29 above high normal Xuan l: 0 - 29 Moder ately incre ased: 30 - 300 Sever digna incre ased: >300 Not Available [facility] ([facility]) [address], [place], [address], 10/30/2024 06:09:30 04/07/20 XR, chest , 2 view No observ ation record ed. [address], [place], [address], 04/08/2024 08:09:11 05/08/20 24 05/08/2024 US, duple x, renal arter y No observ ation record ed. [place] [address], [place], [address], 05/18/2024 15:42:37 05/13/20 24 05/08/2024 NM, myoca rdial perfu yuri scan, w/ stres s No observ ation record ed. [address], [place], [place], [address], 05/19/2024 10:59:18 05/13/20 24 05/08/2024 lucia can cardi olite stres s test (PROC ) No observ ation record ed. [address], [place], [place], [address], 05/19/2024 10:58:48 05/20/19 25 05/08/2024 US, doppl er echoc ardio gram No observ ation record ed. [address], [place], [place], [address], 05/28/2024 10:34:39 06/23/19 25 06/18/2024 US, carot id arter y No observ ation record ed. [place] [address], [place], [place], [address], 06/23/2024 08:48:51 07/25/19 25 07/24/2024 XR, chest , 2 view No observ ation record ed. [email or web address] [facility] [address], [place], [address], 07/24/2024 11:37:31 07/25/19 25 07/24/2024 LDCT, chest , for lung cance r scree cinthya No observ ation record ed. [facility] [address], [place], [address], 07/31/2024 08:33:30 07/25/19 25 07/24/2024 DEXA No observ ation record ed. [email or web address] [facility] [address], [place], [address], 07/31/2024 08:33:30 07/29/19 25 07/24/2024 MAMMO , samuele cinthya, digit al, bilat eral No observ ation record ed. [email or web address] [address], [place], [address], 07/31/2024 08:33:30 10/01/19 25 07/06/2019 colon oscop y proce dure (PROC ) No observ ation record ed. [email or web address] Not Available 09/30 15:18:56 Result Notes None recorded. Problems Name Problem SNOMED Code Status Onset Date Resolution Date Notes Provider Name and Address Organization Details Recorded Time Osteopor osis 52541776 Active 2024 Nuris Sandra APRN [address] [place] [address], [address] , [employer] 5 13:27:48 Type 2 diabetes mellitus 57960817 Active 2024 Nuris Sandra APRN [address] [place], [address] , [employer] 13:23:31 Chronic kidney disease stage 4 210661304 Active 2024 Nuris Sandra APRN [address] [place], [address] , [employer] 5 13:23:41 Acute kidney injury 99065436 Active 2024 Nuris Sandra APRN [address] [place] [address], [address] , [employer] 5 10:45:03 Renal artery stenosis 580420577 Active 2024 Nuris Sandra APRN [address] [place] [address], [address] , [employer] 5 17:32:49 Mild major depressi on 72411140 Active 2024 Nuris Sandra APRN [address] [place] [address], [address] , [employer] 5 17:19:50 Lumbar radiculo juan 828376889 Active 2024 Nuris Sandra APRN [address] [place] [address], [address] , [employer] 5 17:20:09 Kyphosis of thoracic spine 758500562 Active 2024 Nuris Sandra APRN [address] [place] [address], [address] , [employer] 5 17:20:40 Tinea corporis 93741288 Completed 201903/26/2022 Problem Code: B35.4; Problem Code Type: ICD-10; SANGEETA MYNEAR null, [employer] 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 2 13:05:56 Type 2 diabetes mellitus without complica tion 547210683 Active 2018 Not Available [facility] 2 22:31:34 Vitamin D deficien cy 72877886 Active 2020 Problem Code: E55.9; Problem Code Type: ICD-10; Not Available [facility] 2 22:31:34 Mixed hyperlip idemia 180971150 Active 2019 Problem Code: E78.2; Problem Code Type: ICD-10; Not Available [facility] 2 22:31:34 Generali zed anxiety disorder 23376644 Completed 201608/23/2016 Problem Code: F41.1; Problem Code Type: ICD-10; Not Available [facility] 2 22:31:34 Primary insomnia 9182800 Completed 201602/04/2017 Problem Code: F51.01; Problem Code Type: ICD-10; Not Available [facility] 2 22:31:34 Restless legs 48926076 Completed 201512/15/2019 Problem Code: G25.81; Problem Code Type: ICD-10; Not Available [facility] 2 22:31:35 Acute non-supp urative serous otitis media 297325303 Completed 201903/26/2022 Problem Code: H65.02; Problem Code Type: ICD-10; SANGEETA MYNEAR null, [employer] 2 13:05:56 Hyperten sive disorder 71868010 Active 2016 Problem Code: I10; Problem Code Type: ICD-10; Not Available [facility] 2 22:31:35 Acute maxillar y sinusiti s 23638491 Completed 201610/23/2016 Problem Code: J01.00; Problem Code Type: ICD-10; SANGEETA MYNEAR null, [employer] 2 13:05:56 Acute maxillar y sinusiti s 93832196 Completed 201903/26/2022 Problem Code: J01.01; Problem Code Type: ICD-10; SANGEETA MYNEAR null, [employer] 2 13:05:56 Acute maxillar y sinusiti s 97584992 Completed 201608/31/2016 Problem Code: J01.00; Problem Code Type: ICD-10; SANGEETA ackerman, [employer] 2 13:05:56 Acute sinusiti s 43845278 Completed 201612/20/2016 Problem Code: J01.90; Problem Code Type: ICD-10; Not Available [facility] 2 22:31:35 Chronic obstruct canelo pulmonar y disease with acute lower respirat ory infectio n 654849514 Completed 201803/26/2022 Problem Code: J44.0; Problem Code Type: ICD-10; SANGEETA ackerman, [employer] 2 13:05:56 Chronic obstruct canelo pulmonar y disease 33297566 Active 2018 Problem Code: J44.9; Problem Code Type: ICD-10; Not Available [facility] 2 22:31:36 Low back pain 698081541 Completed 202003/19/2021 Problem Code: M54.5; Problem Code Type: ICD-10; Not Available [facility] 2 22:31:36 Generali zed anxiety disorder 26804531 Active 2018 Problem Code: F41.1; Problem Code Type: ICD-10; Not Available [facility] 2 22:31:36 Bony swelling of lumbar spine 999592611 Completed 201512/15/2019 Problem Code: R29.898; Problem Code Type: ICD-10; Not Available [facility] 2 22:31:36 Breast composit ion 948932740 Completed 201803/26/2022 Problem Code: R92.2; Problem Code Type: ICD-10; SANGEETA ackerman, [employer] 2 13:05:56 General examinat ion of patient Active 2021 Not Available [facility] 2 22:31:37 Screenin g mammogra phy Completed 201903/26/2022 Problem Code: Z12.31; Problem Code Type: ICD-10; SANGEETA COFFEYBOBR null, [employer] 2 13:05:56 Influenz a vaccine needed 57613154727 06 Completed 201912/15/2019 Problem Code: Z23; Problem Code Type: ICD-10; SANGEETA MYBOBR null, [employer] 3 14:31:05 Influenz a vaccine needed 60694811478 06 Completed 201909/13/2020 Problem Code: Z23; Problem Code Type: ICD-10; SANGEETA ERLINDABOBR null, [employer] 3 14:31:05 Undiffer entiated inflamma tory polyarth ritis 838228439 Active 2021 Problem Code: M13.0; Problem Code Type: ICD-10; Not Available [facility] 2 22:31:38 History of polyp of colon 179063557 Completed 201912/15/2019 Problem Code: Z86.010; Problem Code Type: ICD-10; Not Available [facility] 2 22:31:38 Chronic kidney disease stage 3 908770630 Active 2019 [id number] es: 'N18.3'; Not Available [facility] 2 22:31:39 Musculos keletal symptom 37970160 Completed 201503/26/2022 Problem Code: 729.89; Problem Code Type: ICD-9; SANGEETA COFFEYBOBR null, [employer] 2 13:05:56 Screenin g mammogra phy Completed 201812/15/2019 Problem Code: Z12.31; Problem Code Type: ICD-10; SANGEETA COFFEYNEAR null, [employer] 2 13:05:56 Body mass index 25-29 - overweig ht 098293793 Active 2021 Problem Code: Z68.29; Problem Code Type: ICD-10; Not Available [facility] 2 22:31:40 Lynne sanchez [id number] Completed 201602/04/2017 Problem Code: 307.41; Problem Code Type: ICD-9; Not Available [facility] 2 22:31:40 Notes:*Problem Name: Occlusi on and stenosis of bilateral carotid arteries *Problem Status: Chronic *Comments: *Problem Code: I65.23 *Problem Code Type: ICD-10 *Note Date: 03/09/2019 Problem Notes None recorded. Procedures Surgical History Date Name Laterality Status Provider Name and Address Organization Details Recorded Time 5 Most Recent Mammogram completed [employer] 08/14/2024 13:16:24 3 Cryosurgery Warts/Skin Tags completed Nuris Sandra APRN [address] [place] [address], [phone], [employer] 04/15/2023 12:51:49 3 Shave Biopsy completed Nuris Sandra APRN [address] [place] [address], [phone], [employer] 12/25/2022 16:33:26 0 Colon Surgery completed SANGEETA [employer] 03/26/2022 13:08:28 insertion of renal artery stent completed Nuris Sandra APRN [address] [place] [address], [phone], [employer] 10/21/2024 16:58:15 Imaging Results None recorded. Procedure Notes None recorded. Medical Equipment None Reported. Allergies Allergen ID Allergen Name Allergen Category Reaction Reaction Severity Criticality Documentation Date Start Date Code Code System Note Provider Name and Address Organization Details Recorded Time 04201 Zithromax medicatio n Not available Not available Not available 01/23/2022 4 RxNorm Not Available [facility] 2 22:57:09 19536 Benadryl medicatio n Not available Not available Not available 01/23/202239433 7 RxNorm Not Available [facility] 2 22:57:09 Medications Name Sig Start Date Stop Date Status Note LastModified by Organization Details LastModified Time cyclobenz aprine 10 mg tablet TAKE ONE TABLET BY MOUTH TWICE DAILY NEEDED, FOR BACK pain active Not Available Not Available No t Available atorvasta tin 40 mg tablet TAKE 1 TABLET AT BEDTIME active Not Available Not Available No t Available methocarb irving 500 mg tablet take 1 tab by oral route every 8 hours prn back pain 03/15 completed Not Available Not Available Not Available metformin 500 mg tablet 1 tablet PO BID 12/02 completed Not Available Not Available Not Available carvedilo l 25 mg tablet TAKE ONE TABLET BY MOUTH TWICE DAILY WITH FOOD active Not Available Not Available No t Available Xanax 0.5 mg tablet 1 po bid 10/22 completed Not Available Not Available Not Available doxycycli ne hyclate 100 mg capsule 04/28 completed Not Available Not Available Not Available ropinirol e 1 mg tablet TAKE 1 TABLET TWICE DAILY 2024 active Not Available Not Available Not Avai lable ipratropi um 0.5 mg-albute rol 3 mg (2.5 mg base)/3 mL nebulizat ion soln 1 neb 4 times a day as needed 2018 active Not Available Not Available Not Avai lable ketoconaz ole 2 % shampoo apply shampoo by topical route twice weekly for 4 weeks with at least 3 days between each shampooi ng 03/16 completed Not Available Not Available Not Available cetirizin e 10 mg tablet Take 1 tablet(s ) by mouth daily 10/22 completed Not Available Not Available Not Available prednison e 20 mg tablet take 2 tablets (40 mg) by oral route once daily for 5 days 09/13 completed Not Available Not Available Not Available alendrona te 70 mg tablet TAKE 1 TABLET EVERY WEEK IN THE MORNING 04/13 completed Not Available Not Available Not Available Synthroid 100 mcg tablet Take 1 tablet(s ) by mouth daily 12/02 completed Not Available Not Available Not Available Toprol XL 50 mg tablet,ex tended release Take 1 tablet(s ) by mouth bid 08/23 completed Not Available Not Available Not Available hydroxyzi ne pamoate 50 mg capsule TAKE 1 CAPSULE TWICE DAILY active Not Available Not Available No t Available hydralazi ne 25 mg tablet TAKE ONE TABLET BY MOUTH TWICE DAILY along with a 50 mg tablet for a complete dose of 75 mg for blood pressure active Not Available Not Available No t Available ciproflox acin 250 mg tablet Take 1 tablet every 12 hours by oral route for 7 days. 07/16 completed Not Available Not Available Not Available dextromet horphan-g uaifenesi n 10 mg-100 mg/5 mL oral syrup Take 1 teaspoon by mouth q4h prn for cough 02/04 completed Not Available Not Available Not Available amlodipin e 5 mg tablet take 1 tablet (5 mg) by oral route once daily 03/26 completed Not Available Not Available Not Available aspirin 81 mg tablet,de layed release Take 1 tablet(s ) by mouth qam 12/02 completed Not Available Not Available Not Available Toprol XL 200 mg tablet,ex tended release Take 1 tablet(s ) by mouth daily 12/02 completed Not Available Not Available Not Available triamcino lone acetonide 0.1 % topical cream APPLY A THIN LAYER TO THE AFFECTED AREA(S) BY TOPICAL ROUTE 2 TIMES PER DAY 04/15 completed Not Available Not Available Not Available Zantac 150 mg tablet 1 daily by mouth 12/02 completed Not Available Not Available Not Available levothyro xine 88 mcg tablet TAKE 1 TABLET EVERY DAY ON AN EMPTY STOMACH 30 MINUTES BEFORE BREAKFAS T active Not Available Not Available No t Available trazodone 100 mg tablet TAKE ONE TABLET BY MOUTH NIGHTLY AT BEDTIME FOR insomnia 10/21 completed Not Available Not Available Not Available amlodipin e 10 mg tablet TAKE 1 TABLET EVERY DAY 04/06 completed Not Available Not Available Not Available doxycycli ne monohydra te 100 mg capsule TAKE ONE CAPSULE BY MOUTH TWICE DAILY WITH FOOD FOR 10 DAYS 10/15 completed Not Available Not Available Not Available metformin 1,000 mg tablet take 1 tablet (1,000 mg) by oral route 2 times per day with morning and evening meals 06/14 completed Not Available Not Available Not Available metoprolo l tartrate 50 mg tablet Take 1 tablet twice a day by oral route. active Not Available Not Available No t Available sertralin e 25 mg tablet TAKE ONE TABLET BY MOUTH EVERY DAY AT BEDTIME, FOR mood active Not Available Not Available No t Available mont[address] st 10 mg tablet TAKE 1 TABLET EVERY EVENING active Not Available Not Available No t Available hydralazi ne 50 mg tablet Take 1 tablet twice a day by oral route, for BP. active Not Available Not Available No t Available hydrochlo rothiazid e 25 mg tablet take 1 tablet (25 mg) by oral route once daily 03/26 completed Not Available Not Available Not Available mupirocin 2 % topical ointment APPLY A SMALL AMOUNT TO THE AFFECTED nostril BY TOPICAL ROUTE 3 TIMES PER DAY 09/24 completed Not Available Not Available Not Available furosemid e 20 mg tablet TAKE 1 TABLET EVERY MORNING NEEDED FOR SWELLING active Not Available Not Available No t Available ergocalci ferol (vitamin D2) 1,250 mcg (50,000 unit) capsule TAKE 1 CAPSULE EVERY WEEK 04/13 completed Not Available Not Available Not Available methylpre dnisolone 4 mg tablets in a dose pack 04/28 completed Not Available Not Available Not Available ondansetr on 4 mg disintegr ating tablet Place 1 tablet twice a day by translin gual route. 08/14 completed Not Available Not Available Not Available cefdinir 300 mg capsule take 1 capsule (300 mg) by oral route every 12 hours 01/07 completed Not Available Not Available Not Available Celexa 40 mg tablet Take 1 tablet(s ) by mouth daily 12/02 completed Not Available Not Available Not Available Ambien 10 mg tablet Take 1 tablet(s ) by mouth at bedtime prn 04/05 completed Not Available Not Available Not Available Xanax 1 mg tablet Take 1 tablet(s ) by mouth bid 02/04 completed Not Available Not Available Not Available Bactrim DS 800 mg-160 mg tablet Take 1 tablet(s ) by mouth q12h for 10 days 07/02 completed Not Available Not Available Not Available cyclobenz aprine 5 mg tablet TAKE ONE TABLET BY MOUTH TWICE DAILY 06/29 completed Not Available Not Available Not Available metoprolo l tartrate 25 mg tablet Take 1 tablet twice a day by oral route. active Not Available Not Available No t Available nitrofura ntoin monohydra te/macroc rystals 100 mg capsule Take 1 capsule every 12 hours by oral route for 10 days. 07/16 completed Not Available Not Available Not Available ProAir HFA 90 mcg/actua tion aerosol inhaler 1-2 puffs as need every 4-6 hours for cough or wheeze. 12/02 completed Not Available Not Available Not Available Advair HFA 115 mcg-21 mcg/actua tion aerosol inhaler inhale 2 puffs by inhalati on route 2 times per day in the morning andeveni ng 03/26 completed Not Available Not Available Not Available sitaglipt in phosphate 25 mg tablet take 1 tablet (25 mg) by oral route once daily 06/14 completed Not Available Not Available Not Available Januvia 50 mg tablet TAKE ONE TABLET BY MOUTH EVERY DAY active Not Available Not Available No t Available calcium 600 mg (as carbonate )-vitamin D3 10 mcg (400 unit) tablet TAKE ONE TABLET BY MOUTH TWICE DAILY active Not Available Not Available No t Available Symbicort 160 mcg-4.5 mcg/actua tion HFA aerosol inhaler INHALE TWO PUFFS BY MOUTH TWICE DAILY IN THE MORNING AND IN THE EVENING active Not Available Not Available No t Available cholecalc iferol (vitamin D3) 1,250 mcg (50,000 unit) capsule Take 1 capsule( s) by mouth q week 07/19 completed Not Available Not Available Not Available Prolia 60 mg/mL subcutane ous syringe Inject 1 mL every day by subcutan eous route for 1 day. 2024 active patients own med Not Available Not Available Not Available ProAir RespiClic k 90 mcg/actua tion breath activated Take 2 inhalati on(s) by mouth q 4 to 6 hr 07/02 completed Not Available Not Available Not Available Vitals Date Recorded Body height Body mass index (BMI) Body weight Heart rate Oxygen saturation Oxygen saturation in Arterial blood by Pulse oximetry Systolic And Diastolic Systolic And Diastolic Provider Name and Address Organization Details Last Updated DateTime 5 160.02 cm 30.8 kg/m2 05796.0 7 g 94 /min 95 % 95 % 159/76 mm[Hg] 108/68 mm[Hg] Jeane Mcintosh [employer] 5 13:34:42 Date Recorded Body height Body mass index (BMI) Body weight Body temperature Heart rate Oxygen saturation Oxygen saturation in Arterial blood by Pulse oximetry Systolic And Diastolic Provider Name and Address Organization Details Last Updated DateTime 5 160.02 cm 30.1 kg/m2 08407.7 g 98 [degF] 89 /min 94 % 94 % 124/68 mm[Hg] [employer] 5 13:15:55 Date Recorded Body height Body mass index (BMI) Body weight Body temperature Heart rate Oxygen saturation Oxygen saturation in Arterial blood by Pulse oximetry Systolic And Diastolic Provider Name and Address Organization Details Last Updated DateTime 5 160.02 cm 29.9 kg/m2 40789.1 1 g 98 [degF] 86 /min 95 % 95 % 134/68 mm[Hg] [employer] 5 13:22:38 Date Recorded Body height Body mass index (BMI) Body weight Body temperature Heart rate Oxygen saturation Oxygen saturation in Arterial blood by Pulse oximetry Systolic And Diastolic Systolic And Diastolic Provider Name and Address Organization Details Last Updated DateTime 5 160.02 cm 29.1 kg/m2 67467.1 5 g 98.1 [degF] 107 /min 94 % 94 % 145/60 mm[Hg] 121/72 mm[Hg] [employer] 5 16:49:36 Date Recorded Body height Body mass index (BMI) Body weight Body temperature Heart rate Oxygen saturation Oxygen saturation in Arterial blood by Pulse oximetry Systolic And Diastolic Systolic And Diastolic Systolic And Diastolic Provider Name and Address Organization Details Last Updated DateTime 4 160.02 cm 30.1 kg/m2 02263.7 g 98.1 [degF] 93 /min 93 % 93 % 166/61 mm[Hg] 156/74 mm[Hg] 157/70 mm[Hg] SANGEETA ERLINDADOLORES [employer] 15:33:46 Social History Question Answer Notes LastModified by Organizat ion Details LastModified Time Tobacco Smoking Status Former Smoker Kelli Lloyd tyron, [employer] 06/25/2022 13:23:34 Do You Have An Advance Directive? No Information n ot available 03/26/2022 Is Your Home Air Conditioned? Yes Information not available 03/26/2022 Are You Blind Or Do You Have Difficulty Seeing? No Information n ot available 03/26/2022 In The 14 Days Before Symptom Onset, Have You Had Close Contact With A Laboratory-confirm ed COVID-19 While That Case Was Ill? No Information n ot available 03/26/2022 In The 14 Days Before Symptom Onset, Have You Had Close Contact With A Person Who Is Under Investigation For COVID-19 While That Person Was Ill? No Information not available 03/26/2022 Have You Been To An Area Known To Be High Risk For COVID-19? No Information not available 03/26/2022 Are You Deaf Or Do You Have Serious Difficulty Hearing? No Information not available 03/26/2022 What Type Of Diet Are You Following? DIABETIC Information n ot available 03/26/2022 Have There Been Any Changes To Your Family Or Social Situation? No Information no t available 03/26/2022 When Did You Quit Smoking? 11-15yearssin celastcigaret te Information not available 03/26/2022 Are There Any Guns Present In Your Home? No Information not available 03/26/2022 Do You Have A Medical Power Of Bottle Washer Machine? No Information not available 03/26/2022 What Was The Date Of Your Most Recent Tobacco Screening? 10/21/2024 Information not available 10/21/2024 What Is Your Current Pack Years? 20-29packyear s Information not available 07/16/2023 What Is Your Relationship Status? Information not available 03/26/2022 Do You Use Your Seat Belt Or Car Seat Routinely? Yes Information not available 03/26/2022 Do You Have Smoke And Carbon Monoxide Detectors In Your Home? Yes Information not available 03/26/2022 Are You Passively Exposed To Smoke? No Information no t available 03/26/2022 Are There Any Smokers In Your House? No Information not available 03/26/2022 Do You Use Sunscreen Routinely? No Information not available 03/26/2022 Has Tobacco Cessation Counseling Been Provided? No Information not available 03/26/2022 Have You Recently Traveled Abroad? No Information not available 03/26/2022 Do You Have Difficulty Walking Or Climbing Stairs? No Information not available 03/26/2022 Are You Currently In School? No Information not available 03/26/2022 Do You Have Any Dietary Restrictions? No Information not available 03/26/2022 Sex: Female Functional Status Question Answer Note LastModified by [employer] ion Details LastModified Time Do you use any illicit or recreational drugs? No Information not available 03/26/2022 Do you or have you ever used any other forms of tobacco or nicotine? No Information not available 03/26/2022 What is your level of alcohol consumption? None Information not available 03/26/2022 Are you currently employed? No Information not available 03/26/2022 Do you have transportation difficulties? No Information not available 03/26/2022 Do you have difficulty doing errands alone? No Information not available 03/26/2022 Are you able to care for yourself? Yes Information not available 03/26/2022 Do you have difficulty dressing or bathing? No Information not available 03/26/2022 Mental Status Question Answer Note LastModified by Organization D etails LastModified Time Do you have difficulty concentrating, remembering or making decisions? No Information no t available 03/26/2022 Family History Relationship Description Onset Age of this Age Resolved Age Notes LastModified by Organization Details LastModified Time Unspecified Relation Family history of Anxiety state [email or web address] Not available 2022 13:22:56 Unspecified Relation Family history of diabetes mellitus type 2 [email or web address] Not available 2022 13:23:00 Unspecified Relation Family history of congestive heart failure [email or web address] Not available 2022 13:23:03 Unspecified Relation Family history of Myocardial infarction [email or web address] Not available 06/25 13:23:08 Unspecified Relation Family history of breast cancer [email or web address] Not available 2022 13:23:13 Medical History Condition Response Hypothyroidism Y COPD Y Acid Reflux (GERD) Y High Cholesterol Y Kidney Disease Y Diabetes Y Asthma Y Hypertension Y Gynecological History Statement/Question Response Date of Last Pap Smear Most Recent Mammogram 07/24/2024 Obstetrics History GPAL:G 0 P 0 0 0 0 Immunizations Vaccine Type Date Status Note Provider Nam e and Address Organization Details Recorded Time Influenza, high-dose, quadrivalent, PF 3 completed Nuris Sandra, EDUCATION REP [address] [place], [address], [employer] 04/21/2023 21:15:19 COVID-19, mRNA, LNP-S, PF, 100 mcg/0.5mL dose or 50 mcg/0.25mL dose 1 completed SANGEETA MYNEAR null, [employer] 03/26/2022 13:03:41 COVID-19, mRNA, LNP-S, PF, 100 mcg/0.5mL dose or 50 mcg/0.25mL dose 1 completed SANGEETA MYNEAR null, [employer] 03/26/2022 13:03:41 Influenza, split virus, quadrivalent, PF 1 completed Not Available [facility] 04/15/2023 11:36:26 COVID-19, mRNA, LNP-S, PF, 100 mcg/0.5mL dose or 50 mcg/0.25mL dose 1 completed SANGEETA MYNEAR null, [employer] 03/26/2022 13:03:41 Influenza, MDCK, quadrivalent, preservative 9 completed SANGEETA MYNEAR null, [employer] 03/26/2022 13:03:41 pneumococcal polysaccharide PPV23 0 completed Not Available [facility] 04/15/2023 11:36:26 Influenza, split virus, quadrivalent, preservative 0 completed Not Available [facility] 04/15/2023 11:36:26 RSV, recombinant, protein subunit RSVpreF, adjuvant reconstituted, 0.5 mL, PF 5 completed Nuris Sandra APRN [address] [place] [address], [phone], [employer] 06/29/2024 14:43:42 COVID-19, mRNA, LNP-S, PF, 100 mcg/0.5mL dose or 50 mcg/0.25mL dose 2 completed SANGEETA BURDICK null, [employer] 03/26/2022 13:03:41 Influenza, split virus, quadrivalent, PF 2 completed Nuris Sandra APRN [address] [place] [address], [id number], [employer] 03/26/2022 17:56:06 COVID-19, mRNA, LNP-S, bivalent, PF, 50 mcg/0.5 mL or 25mcg/0.25 mL dose 3 completed SANGEETA JOHNSONR null, [employer] 06/26/2022 14:30:40 COVID-19, mRNA, LNP-S, PF, 50 mcg/0.5 mL 4 completed Nuris Sandra APRN [address] [place], [address], [employer] 06/29/2024 13:42:27 Influenza, high-dose, trivalent, PF 4 completed Nuris Sandra APRN [address] [place], [address], [employer] 06/29/2024 13:42:27 Past Encounters Encounter ID Performer Location Encounter Start Date Encounter Closed Date Diagnosis/Indication Diagnosis SNOMED-CT Code Diagnosis ICD10 Code Diagnosis Note [id number] Nuris Sandra [place] [address] 03/26/2022 12:51:45 03/26/2022 13:47:40 Renal disorder due to type 2 diabetes mellitus 874196315 E11.21 Kim nephrology appointmen t she has scheduled for next month with Dr. Johnson.Bonnie anguiano to avoid all NSAID drugs. Adequate hydration emphasized . Essential hypertension 33645684 I10 Low-salt diabetic diet encouraged . Administra tion of influenza vaccine 87564428 Z23 Hypothyroidism 72278660 E03.9 Osteoporosis 44397099 M8 1.0 DEXA scan completed in December showed severe osteoporos is. She does have a remote history of smoking. We will start her on weekly Fosamax. I would also like her to continue her twice daily calcium with vitamin D over-the-c ounter, and increase aerobic weightbear ing exercise. [id number] Nuris Sandra [place] [address] 0 06/26/2022 14:11:06 06/26/2022 15:14:17 Chronic kidney disease due to type 2 diabetes mellitus 8931212623 08 E11.22 Continue current medication s. Ulcerated nasal mucosa 993204657 J34.0 Body mass index 25-29 - overweight 909276814 Z68.29 [id number] [place] [address] 09/24/2022 14:10:46 09/24/2022 15:04:31 Renal disorder due to type 2 diabetes mellitus 488916773 E11.21 Continue current medication s, hydrate well and avoid NSAIDs. Chronic ob structive pulmonary disease 10460426 J44.9 Hypothyroidism 81078748 E03.9 Vitamin D deficiency 347 33186 E55.9 Restless legs 59546085 G 25.81 Body mass index 25-29 - overweight 971041342 Z68.29 Eczema 67030039 L30.9 [id number] [place] [id number] 12/25/2022 15:36:34 12/25/2022 18:04:10 Type 2 diabetes mellitus without complication 649276713 E11.9 continue current medication s. He may be a good candidate for [employer] with her renal disease and diabetes, but she states she cannot afford an expensive medication right now as she is on a limited income. 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 Wound care instructio ns were explained. Avoid submerging in standing water. Monitor for signs of infection please. Cleanse twice daily with soap and water and apply a slightly white vinegar. [id number] Nuris Sandra APRN [facility] [address] [place] [id number] 04/15/2023 11:32:59 04/15/2023 13:04:27 Chronic kidney disease due to type 2 diabetes mellitus 3165775567 08 E11.22 Continue current medication s. Administra tion of influenza vaccine 14089579 Z23 Chronic ob structive pulmonary disease 63487895 J44.9 General ex amination of patient 877969330 Z00.00 Patient presented to office today for their Medicare Annual Wellness Visit. Education was provided on healthy nutrition, including a diet rich in fruits and vegetables , minimizing simple carbohydra sherrie, salt, and saturated fats. Encouraged regular cardiovasc ular exercise such as walking at least 30 minutes daily, 5 times per week. Emphasized preventive health measures and educated pt on fall prevention and community- based lifestyle interventi ons to help reduce health risks and promote healthy living. Hypothyroidism 75590108 E03.9 Restless legs 18546250 G 25.81 Essential hypertension 42270323 I10 Low-salt diabetic diet encouraged . Vitamin D deficiency 347 35038 E55.9 Type 2 franklin betes mellitus without complication 550587283 E11.9 continue current medication s. He may be a good candidate for [employer] with her renal disease and diabetes, but she states she cannot afford an expensive medication right now as she is on a limited income. Generalize d anxiety disorder 87825745 F41.1 Renal diso rder due to type 2 diabetes mellitus 421243923 E11.21 Continue current medication s, hydrate well and avoid NSAIDs. Seborrheic keratosis 394 387642 L82.1 Cryo completed Body mass index 25-29 - overweight 707385358 Z68.29 [id number] [address] [place] [id number] 07/16/2023 16:20:03 07/16/2023 17:16:42 Type 2 diabetes mellitus without complication 104124343 E11.9 No med changes today. Acute sinusitis 99991042 J01.90 Patient likely has an acute bacterial sinusitis. Will treat as below. No signs of preseptal or orbital cellulitis , meningismu s, or neurologic changes concerning for intracrani al process. Instructed family to monitor patient closely and call office for any of these symptoms. Supportive care reviewed: raising HOB, humidifier use, saline nasal spray, rest, encourage PO fluids and monitor hydration status, infection control measures. Recommende d acetaminop hen/ibupro fen PRN pain, fever; reviewed appropriat e doses. Follow-up as below. Vitamin D deficiency 347 17868 E55.9 Continue ergocal weekly. Body mass index 25-29 - overweight 919284880 Z68.29 [id number] [address] [place] [address] 10/16/2023 15:50:23 10/16/2023 16:31:09 Type 2 diabetes mellitus without complication 761335738 E11.9 No med changes today. Neck pain 19017130 M54.2 Alternate ice and heat, biofreeze, stretching , limit lifting. Tylenol prn pain. [id number] Nuris Sandra[address] [address] 01/13/2024 15:44:13 01/13/2024 16:42:05 Adult health examination 086544547 Z00.00 Type 2 franklin betes mellitus without complication 782056728 E11.9 No med changes today. Hypothyroidism 11435208 E03.9 Hypertensive disorder 38 339944 I10 Chronic ki dney disease stage 3 745034074 N18.30 Continues to follow with Nephrology . Hydration, avoiding nsaids and DM and HTN control emphasized . Body mass index 25-29 - overweight 287693726 Z68.29 Insomnia 632554238 G47.0 0 Sleep hygiene and grief counseling encouraged [id number] Nuris Sandra [place] [id number] 0 04/06/2024 16:10:48 04/06/2024 16:53:09 Chronic obstructive pulmonary disease 71104165 J44.9 She does have rescue inhaler and Symbicort at home. Chronic ki dney disease stage 4 143414715 N18.4 Continue to hydrate well and avoid NSAID drugs. She does not see nephrology until May for follow-up. Essential hypertension 59137339 I10 Increase Hydralazin e to 50 mg BID, increase metoprolol tartrate to 50 mg BID. Obtain chest x-ray today. She is to keep a blood pressure and heart rate log twice daily and follow-up with me with a log for review in 1 week. Low-salt diet was encouraged . [id number] [place] [address] 04/13/2024 15:18:59 04/13/2024 16:16:19 Acute exacerbation of chronic obstructive pulmonary disease 971065089 J44.1 Restart Symbicort for maintenanc e, complete antx and steroids as prescribed by ER. Essential hypertension 18093699 I10 Increase Hydralazin e to 75 mg BID. DASH diet emcouraged . Continue BP diary and report to me BP readings in one week. [id number] Nuris Sandra [place] [id number] 04/28/2024 15:27:42 04/28/2024 17:12:38 Labile essential hypertension 131027597 I10 Obtain renal artery duplex to rule out KAYLEEN. [id number] Nuris Sandra [place] [id number] 06/29/2024 13:24:56 06/29/2024 14:05:07 Type 2 diabetes mellitus without complication 275184594 E11.9 No med changes today. Will refer for DM eye exam. Healthy diet and increased physical acitivty was encouraged . Chronic ki dney disease stage 3 790518786 N18.30 Continues to follow with Nephrology . Hydration, avoiding nsaids and DM and HTN control emphasized . Screening mammography of bilateral breasts 6248185094 09309 Z12.31 Screening for malignant neoplasm of respiratory tract 386588663 Z12.2 Quit smoking 4 years ago. Active or passive immunization 647055863 Z23 Body mass index 30+ - obesity 486180691 Z68.30 [id number] [place] [address] 08/14/2024 12:48:29 08/14/2024 13:44:36 Osteoporosis 10089143 M81.0 Cannot take fosamax and other bisphospha sherrie due to severe CKD. Right femoral neck T score was -2.1. Begin prolia and calcium w/ d. Weight bearing exercise encouraged . Low back pain 342232139 M54.50 Increase flexeril to 10 mg prn, obtain UA, alternate ice and heat. Cannot afford Physical therapy and you can use tylenol and voltaren gel. She cannot take NSAIDS due to CKD. [id number] Nuris Jocy [address] 09/28/2024 12:58:57 09/28/2024 13:54:22 Type 2 diabetes mellitus 20602957 E11.9 Continue current medication s. Chronic jama dney disease stage 4 059555941 N18.4 Continue to hydrate well and avoid NSAID drugs. Renal artery stenosis 30 6691462 I70.1 I have called [facility] in [facility] and she is scheduled for KAYLEEN procedure this week. [id number] Nuris Sandra [place] [id number] 10/21/2024 16:28:38 10/22/2024 08:31:06 Mild major depression 46452191 F32.0 Start Zoloft. Encouraged she consider grief counseling . Continue hydroxyzin e. Lumbar radiculopathy 128 116630 M54.16 Has failed muscle relaxants, alternate ice and heat. Cannot afford Physical therapy and has failed tylenol and voltaren gel. She cannot take NSAIDS due to CKD. Is developing myelopathy in legs. Kyphosis o f thoracic spine 449177188 M40.204 Developing neuralgias in right trapezius with numbness and tingling. Health Concerns Section Related Observation LastModified by Organization Amanda [email or web address] LastModified Time None Recorded Concern Status LastModified by Organization Details LastModified Time None Recorded Advance Directives Directive N: Payers Insurance Date Sequence Insurance Name Policy Number Policy Cedeño Covered Member ID Cedeño Member ID Guarantor Name 02/15/2024 SLIDING FEE SCHEDULE - DISCOUNT Michelle Castañeda 10/26/2024 1 [employer] - GOLD PLUS (MEDICARE REPLACEMENT/AD VANTAGE - HMO) Michelle Castañeda [id number] Michelle Castañeda 09/25/2024 MEDICARE A-[place]: [employer] - [facility] Michelle Castañeda [id number] Michelle Castañeda 03/23/2022 1 *SELF PAY* Vika Castañeda Notes Date Note Type Note Provider Name and Address Organization Details Recorded Time 4 text/html Has CKD followed by Nephrology with known atrophic left kidney. Nuris Sandra APRN [address] [place], [address], [employer], [employer]. 05/21/2024 22:00:00 4 text/html Hypertension F/UReported bypatient.Medications:oli ing medications as directed; no side effects from medication; checks blood pressure at home, range: (135-150/80-90) Lifestyle:not exercising regularly;does not adhere to low sodium diet Associated Symptoms:no dizziness; no lightheadedness; no chest pain; no palpitations; no edema; no calf pain with exertion; no headache;shortness of breathNotes:BP is improving with recent medication regimen modifications, but is not yet at goal. She is not tolerating hydralazine due to fatigue and nausea. Nuris Sandra APRN [address], [place], [address], [employer] 05/21/2024 22:00:00 5 text/html DiabetesReported bypatient.Duration:chroni c Control:usually well controlled; normal range of home blood sugars (in the low 100s); treated with diet and oral medications; hemoglobin A1C has been less than 7; hemoglobin A1C goal is less than 7 Compliance:compliant with medications; compliant with follow-up visits; compliant with home glucose monitoring;noncompliant with diet; no side effects from medications;noncompliant with physical activity Self Care:monitoring glucose daily; checking feet regularly;not seeing eye doctor yearly Associated Symptoms:no weight loss; no dizziness; no sweats; no headaches; no confusion; no increased thirst; no increased appetite; no increased urination; no blurred vision; no numbness of feet; no blurred vision; no paresthesias;weight gain ( lbs);calluses on feet;fatigueHypertension F/UReported bypatient.Medications:oli ing medications as directed; no side effects from medication; checks blood pressure at home, range: (135-150/80-90) Lifestyle:not exercising regularly;does not adhere to low sodium diet Associated Symptoms:no dizziness; no lightheadedness; no chest pain; no palpitations; no edema; no calf pain with exertion; no headache;shortness of breath Has CKD followed by Nephrology with known atrophic left kidney. Has some right KAYLEEN noted on US but Cardio declined to stent. Recent carotid US showed decreased flow in right veterbral artery and she sees Cardio to discuss that result tomorrow. She feels tired. BP control is excellent back on amlodipine and coreg. Nuris Sandra, EDUCATION REP [address], [place], [address], [facility] [employer] 06/29/2024 14:47:57 5 text/html OsteoporosisReported bypatient.Age acquired:69 Weightweight (170) Height:loss of 1inches;kyphosis Duration:post menopausal Fracture History:no history of recent fracture Kidney stones:no family history of kidney stones ETOH:no alcohol use Smokingformer smoker Habitsinactive lifestyle Bone pain:no bone pain Falls:(normal) abnormality of walk: frequent falls while walking Reported Medicationsno history of greater than 5 mg po qd prednisone for over 3 mo. duration; takes calcium supplements: no; takes vitamin D supplement: no; loop diuretic Co-morbidities:chronic kidney disease Calcium intake:servings per day 1 Vitamin D intake:inadequate vitamin D Home risks:good lighting in home; no rugs in home;stairs; small animals Help available:family Emergency plan for fall:plan in place DXA Scanlast DXA 07/2024 AP Spinet-score ; Femur (neck right) T-score (-2.01) WHO Criteriaosteoporosis Prior lumbar/sacral surgeryno prior lumbar/sacral surgery also complains of muscular low back pain across entire low back for 2 weeks without radicular sx. She has tried tylenol and robaxin without relief. Nuris Sandra APRN [address] [place], [address], [facility] [employer] 08/16/2024 15:28:49 5 text/html DiabetesReported bypatient.Duration:chroni c Control:usually well controlled; normal range of home blood sugars (in the low 100s); treated with diet and oral medications; hemoglobin A1C has been less than 7; hemoglobin A1C goal is less than 7 Compliance:compliant with medications; compliant with follow-up visits; compliant with home glucose monitoring;noncompliant with diet; no side effects from medications;noncompliant with physical activity Self Care:monitoring glucose daily; checking feet regularly;not seeing eye doctor yearly Associated Symptoms:no weight loss; no dizziness; no sweats; no headaches; no confusion; no increased thirst; no increased appetite; no increased urination; no blurred vision; no numbness of feet; no blurred vision; no paresthesias;weight gain ( lbs);calluses on feet;fatigueHypertension F/UReported bypatient.Medications:oli ing medications as directed; no side effects from medication; checks blood pressure at home, range: (135-150/80-90) Lifestyle:not exercising regularly;does not adhere to low sodium diet Associated Symptoms:no dizziness; no lightheadedness; no chest pain; no palpitations; no edema; no calf pain with exertion; no headache;shortness of breath Has CKD followed by Nephrology with known atrophic left kidney. Has some right KAYLEEN noted on US but Cardio declined to stent. Recent carotid US showed decreased flow in right veterbral artery and she has now d/w Nephrology who now agrees it needs to be addressed. BP control is excellent back on amlodipine and coreg. Nuris Sandra APRN [address] [place], [address], [employer] 10/16/2024 17:34:56 5 text/html Has 2 stents placed recently for renal artery stenosis. She continues to grieve her mother's and feels depressed. Denies SI/HI. Has poor sleep. Feels sad about her family situations and recent medical problems. She continues to suffer with chronic low and mid back pain that radiates to right leg and up toward neck. She has progressive kyphosis that is now affecting the ROM of her Cspine. She is taking Prolia for Osteoporosis - she is a former smoker. She is unable to take NSAIDS due to CKD, tylenol and topical rubs are no longer helpful. She rates pain now 8/10 and this has been progressive for over a year but was delayed in treatment due to her renal disease progression. SHe is trying to avoid opiates for pain control and would like to consider epidural steroid injections as a treatment plan. She has not had MRI of spine. Nuris Sandra, ASHLYN [address] [place], [address], [employer] 10/23/2024 15:19:53 OBGyn Episode No OBEpisode recorded.
--- OUTSIDE RECORDS SUMMARY | 2024-11-19 13:47 | XMS_ITS | Continuity of Care Document ---
Author Organization [place] - [employer] [facility] Address [address] [place] [address] Assessment No assessment recorded. Plan of Treatment Reminders Order Date Submit Date Provider Last Modified By Organization Details Last Modified Time Details Appointments ANNUAL EXAM 2024 03:30P M Dipak Sandra APRN Not available Not available Not available Lab None recorded. Referral None recorded. Procedures None recorded. Surgeries None recorded. Imaging MRI, lumbar spine, w/o contrast [address] (Scheduling), [address], [place], [address], 11/19/2024 09:48:14 MRI, thoracic spine, w/o contrast - first available appt [address] (Sched[address]), [address], [place], [address], 11/19/2024 09:48:36 Medication Orders sertralin e 25 mg tablet 2024 025 [facility], [address] [facility], [place], [address], 10/22/2024 12:54:13 Patient TargetsNo targets recorded. Patient InstructionsNo instructions recorded. Reason for Referral None Reported. Results Created Date Observation Date Name Description Value Unit Range Abnormal Flag Note LastModifiedBy Organization Detail LastModifiedTime 10/01/1907/06/2019 colon oscop y proce dure (PROC ) No observ ation record ed. [email or web address] Not Available 09/30 15:18:56 Result Notes None recorded. Problems Name Problem SNOMED Code Status Onset Date Resolution Date Notes Provider Name and Address Organization Details Recorded Time Osteopor osis 22029103 Active 2024 Nuris Sandra APRN [address] [place] [address], [address] [place] [address] , [employer] 13:27:48 Type 2 diabetes mellitus 28473690 Active 2024 Nuris Sandra APRN [address] [place] [address], [address] [place] [address] , [employer] 13:23:31 Chronic kidney disease stage 4 634142724 Active 2024 Nuris Sandra APRN [address] [place] [address], [address] [place] [address] , [employer] 13:23:41 Acute kidney injury 34017659 Active 2024 Nuris Sandra APRN [address] [place] [address], [address] [place] [address] , [employer] 10:45:03 Renal artery stenosis 339837932 Active 2024 Nuris Sandra APRN [address] [place] [address], [address] [place] [address] , [employer] 17:32:49 Mild major depressi on 11142792 Active 2024 Nuris Sandra APRN [address] [place] [address], [address] [place] [address] , [employer] 17:19:50 Lumbar radiculo juan 064971566 Active 2024 Nuris Sandra APRN [address] [place] [address], [address] [place] [address] , [employer] 17:20:09 Kyphosis of thoracic spine 876167907 Active 2024 Nuris Sandra APRN [address] [place] [address], [address] , [employer] 5 17:20:40 Tinea corporis 56989959 Completed 201903/26/2022 Problem Code: B35.4; Problem Code Type: ICD-10; SANGEETA ackerman, [employer] 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 13:05:56 Type 2 diabetes mellitus without complica tion 851893522 Active 2018 Not Available [facility] 2 22:31:34 Vitamin D deficien cy 39026239 Active 2020 Problem Code: E55.9; Problem Code Type: ICD-10; Not Available [facility] 2 22:31:34 Mixed hyperlip idemia 000278619 Active 2019 Problem Code: E78.2; Problem Code Type: ICD-10; Not Available [facility] 2 22:31:34 Generali zed anxiety disorder 81975640 Completed 201608/23/2016 Problem Code: F41.1; Problem Code Type: ICD-10; Not Available [facility] 2 22:31:34 Primary insomnia 0011680 Completed 201602/04/2017 Problem Code: F51.01; Problem Code Type: ICD-10; Not Available [employer] 2 22:31:34 Restless legs 16667952 Completed 201512/15/2019 Problem Code: G25.81; Problem Code Type: ICD-10; Not Available [employer] 2 22:31:35 Acute non-supp urative serous otitis media 369571875 Completed 201903/26/2022 Problem Code: H65.02; Problem Code Type: ICD-10; SANGEETA MYNEAR null, [employer] 2 13:05:56 Hyperten sive disorder 32865235 Active 2016 Problem Code: I10; Problem Code Type: ICD-10; Not Available [facility] 2 22:31:35 Acute maxillar y sinusiti s 86639889 Completed 201610/23/2016 Problem Code: J01.00; Problem Code Type: ICD-10; SANGEETA MYNEAR null, [employer] 2 13:05:56 Acute maxillar y sinusiti s 73191677 Completed 201903/26/2022 Problem Code: J01.01; Problem Code Type: ICD-10; SANGEETA MYNEAR null, [employer] 13:05:56 Acute maxillar y sinusiti s 44365783 Completed 201608/31/2016 Problem Code: J01.00; Problem Code Type: ICD-10; SANGEETA MYNEAR null, [employer] 13:05:56 Acute sinusiti s 59669764 Completed 201612/20/2016 Problem Code: J01.90; Problem Code Type: ICD-10; Not Available [facility] 2 22:31:35 Chronic obstruct canelo pulmonar y disease with acute lower respirat ory infectio n 858589836 Completed 201803/26/2022 Problem Code: J44.0; Problem Code Type: ICD-10; SANGEETA MYNEAR null, [employer] 13:05:56 Chronic obstruct canelo pulmonar y disease 52747570 Active 2018 Problem Code: J44.9; Problem Code Type: ICD-10; Not Available [facility] 2 22:31:36 Low back pain 291173819 Completed 202003/19/2021 Problem Code: M54.5; Problem Code Type: ICD-10; Not Available [facility] 2 22:31:36 Generali zed anxiety disorder 37204553 Active 2018 Problem Code: F41.1; Problem Code Type: ICD-10; Not Available [facility] 2 22:31:36 Bony swelling of lumbar spine 499486572 Completed 201512/15/2019 Problem Code: R29.898; Problem Code Type: ICD-10; Not Available [facility] 2 22:31:36 Breast composit ion 758144323 Completed 201803/26/2022 Problem Code: R92.2; Problem Code Type: ICD-10; SANGEETA COFFEYBOBR null, [employer] 2 13:05:56 General examinat ion of patient Active 2021 Not Available [facility] 2 22:31:37 Screenin g mammogra phy Completed 201903/26/2022 Problem Code: Z12.31; Problem Code Type: ICD-10; SANGEETA COFFEYNEAR null, [employer] 2 13:05:56 Influenz a vaccine needed 40075631468 06 Completed 201912/15/2019 Problem Code: Z23; Problem Code Type: ICD-10; SANGEETA COFFEYNEAR null, [employer] 3 14:31:05 Influenz a vaccine needed 59004770432 06 Completed 201909/13/2020 Problem Code: Z23; Problem Code Type: ICD-10; SANGEETA COFFEYNEAR null, [employer] 3 14:31:05 Undiffer entiated inflamma tory polyarth ritis 589702442 Active 2021 Problem Code: M13.0; Problem Code Type: ICD-10; Not Available [facility] 2 22:31:38 History of polyp of colon 523049794 Completed 201912/15/2019 Problem Code: Z86.010; Problem Code Type: ICD-10; Not Available [facility] 2 22:31:38 Chronic kidney disease stage 3 637321209 Active 2019 [id number] es: 'N18.3'; Not Available [facility] 2 22:31:39 Musculos keletal symptom 03616576 Completed 201503/26/2022 Problem Code: 729.89; Problem Code Type: ICD-9; SANGEETA ackerman, [employer] 2 13:05:56 Screenin g mammogra phy Completed 201812/15/2019 Problem Code: Z12.31; Problem Code Type: ICD-10; SANGEETATRACE ackerman, [employer] 2 13:05:56 Body mass index 25-29 - overweig 802986679 Active 2021 Problem Code: Z68.29; Problem Code Type: ICD-10; Not Available [facility] 2 22:31:40 Transien t insomnia 672889766 Completed 201602/04/2017 Problem Code: 307.41; Problem Code Type: ICD-9; Not Available [facility] 2 22:31:40 Notes:*Problem Name: Occlusi on and stenosis of bilateral carotid arteries *Problem Status: Chronic *Comments: *Problem Code: I65.23 *Problem Code Type: ICD-10 *Note Date: 03/09/2019 Problem Notes None recorded. Procedures Surgical History Date Name Laterality Status Provider Name and Address Organization Details Recorded Time 5 Most Recent Mammogram completed SANGEETA BURDICK [employer] 08/14/2024 13:16:24 3 Cryosurgery Warts/Skin Tags completed Nuris Sandra APRN [address] [place], [address], [employer] 04/15/2023 12:51:49 3 Shave Biopsy completed Nuris Sandra APRN [address] [place], [address], [employer]. 12/25/2022 16:33:26 0 Colon Surgery completed SANGEETA BURDICK [employer] 03/26/2022 13:08:28 insertion of renal artery stent completed Nuris Sandra APRN [address] [place], [address], [employer] 10/21/2024 16:58:15 Imaging Results None recorded. Procedure Notes None recorded. Medical Equipment None Reported. Allergies Allergen ID Allergen Name Allergen Category Reaction Reaction Severity Criticality Documentation Date Start Date Code Code System Note Provider Name and Address Organization Details Recorded Time 15519 Zithromax medicatio n Not available Not available Not available 01/23/2022 4 RxNorm Not Available [facility] 2 22:57:09 46413 Benadryl medicatio n Not available Not available Not available 01/23/202220337 7 RxNorm Not Available [facility] 2 22:57:09 Medications Name Sig Start Date [...] 4 mg tablets in a dose pack 12/10 /2024 completed Not Available Not Available Not Available [...] Updated DateTime 5 160.02 cm 29.1 kg/m2 66898.1 5 g 98.1 [degF] 107 /min 94 % 94 % 145/60 mm[Hg] 121/72 mm[Hg] SANGEETA BURDICK [employer] 16:49:36 Social History Question Answer Notes LastModified by Organizat ion Details LastModified Time Tobacco Smoking Status Former Smoker Kelli ackerman, [employer] 06/25/2022 13:23:34 Do You Have An [...] Do You Have A Medical Power Of Hide Handler? No Information not available 03/26/2022 What Was [...] Functional Status Question Answer Note LastModified by Organizat ion Details LastModified Time Do you use [...] available 2022 13:23:13 Medical History Condition Response Diabetes Y High Cholesterol Y Acid Reflux (GERD) Y Hypertension Y COPD Y Asthma Y Hypothyroidism Y Kidney Disease Y Gynecological History Statement/Question Response Date of Last Pap Smear Most Recent Mammogram 07/24/2024 Obstetrics History GPAL:G 0 P 0 0 0 0 Immunizations Vaccine Type Date Status Note Provider Nam e and Address Organization Details Recorded Time Influenza, high-dose, quadrivalent, PF 3 completed Nuris Sandra APRN [address] [place], [address], [facility] [employer] 04/21/2023 21:15:19 COVID-19, mRNA, LNP-S, PF, 100 mcg/0.5mL dose or 50 mcg/0.25mL dose 1 completed SANGEETA MYNEAR null, [employer] 03/26/2022 13:03:41 COVID-19, mRNA, LNP-S, PF, 100 mcg/0.5mL dose or 50 mcg/0.25mL dose 1 completed SANGEETA MYNEAR null, [employer] 03/26/2022 13:03:41 Influenza, split virus, quadrivalent, PF 1 completed Not Available [facility] 04/15/2023 11:36:26 COVID-19, mRNA, LNP-S, PF, 100 mcg/0.5mL dose or 50 mcg/0.25mL dose 1 completed SANGEETA MYNEAR null, [employer] 03/26/2022 13:03:41 Influenza, MDCK, quadrivalent, preservative 9 completed SANGEETA MYNEAR null, [employer] 03/26/2022 13:03:41 pneumococcal polysaccharide PPV23 0 completed Not Available [facility] 04/15/2023 11:36:26 Influenza, split virus, quadrivalent, preservative 0 completed Not Available [facility] 04/15/2023 11:36:26 RSV, recombinant, protein subunit RSVpreF, adjuvant reconstituted, 0.5 mL, PF 5 completed Nuris Sandra APRN [address] [place], [address], [employer] 06/29/2024 14:43:42 COVID-19, mRNA, LNP-S, PF, 100 mcg/0.5mL dose or 50 mcg/0.25mL dose 2 completed SANGEETA MYNEAR null, [employer] 03/26/2022 13:03:41 Influenza, split virus, quadrivalent, PF 2 completed Nuris Sandra APRN [address] [place], [address], for; to (do) [employer] 03/26/2022 17:56:06 COVID-19, mRNA, LNP-S, bivalent, PF, 50 mcg/0.5 mL or 25mcg/0.25 mL dose 3 completed [facility]A ackerman, [facility] 06/26/2022 14:30:40 COVID-19, mRNA, LNP-S, PF, 50 mcg/0.5 mL 4 completed Nuris Sandra APRN [address] [place] [address], [address], [facility] [employer] 06/29/2024 13:42:27 Influenza, high-dose, trivalent, PF 4 completed Nuris Sandra APRN [address] [place] [address], [address], [facility] [employer] 06/29/2024 13:42:27 Past Encounters Encounter ID Performer Location Encounter Start Date Encounter Closed Date Diagnosis/Indication Diagnosis SNOMED-CT Code Diagnosis ICD10 Code Diagnosis Note [id number] Nuris Sandra [place] 1904011-970 0 09/28/2024 12:58:57 09/28/2024 13:54:22 Type 2 diabetes mellitus 58835127 E11.9 Continue current medication s. Chronic ki dney disease stage 4 136469189 N18.4 Continue to hydrate well and avoid NSAID drugs. Renal artery stenosis 30 9201629 I70.1 I have called [facility] in [facility] and she is scheduled for KAYLEEN procedure this week. [id number] Nuris Snadra [address] [address] 10/21/2024 16:28:38 10/22/2024 08:31:06 Mild major depression 91091795 F32.0 Start Zoloft. Encouraged she consider grief counseling . Continue hydroxyzin e. Lumbar radiculopathy 128 221869 M54.16 Has failed muscle relaxants, alternate ice and heat. Cannot afford Physical therapy and has failed tylenol and voltaren gel. She cannot take NSAIDS due to CKD. Is developing myelopathy in legs. Kyphosis o f thoracic spine 472157532 M40.204 Developing neuralgias in right trapezius with numbness and tingling. Health Concerns Section Related Observation LastModified by Organization Detai ls LastModified Time None Recorded Concern Status LastModified by Organization Details LastModified Time None Recorded Payers Encounter Date Sequence Insurance Name Policy Number Policy Cedeño Covered Member ID Cedeño Member ID Guarantor Name 10/21/2024 1 [employer] - GOLD PLUS (MEDICARE REPLACEMENT/A DVANTAGE - HMO) Michelle Castañeda [id number] Michelle Castañeda Notes Date Note Type Note Provider Name and Address Organization Details Recorded Time 10/21/2024 text/html Has 2 stents placed recently for [...] MRI of spine. Nuris Sandra, ASHLYN [address] [facility]], [place], [address], [facility] [employer] 10/23/2024 15:19:53 OBGyn Episode No OBEpisode recorded.
--- OUTSIDE RECORDS SUMMARY | 2024-11-19 13:47 | XMS_ITS | Continuity of Care Document ---
Author Organization [place] - [employer] [facility] Address [address] [place] [phone] Assessment No assessment recorded. Plan of Treatment Reminders Order Date Submit Date Provider Last Modified By Organization Details Last Modified Time Details Appointments ANNUAL EXAM 2024 03:30P M Dipak Sandra APRN Not available Not available Not available Lab HbA1c (hemoglo bin A1c), blood 2024 025 [email or web address] [facility], [address] [place] [address], [phone], 09/28/2024 13:31:57 Referral None recorded . Procedures None recorded . Surgeries None recorded . Imaging None recorded . Medication Orders None recorded . Patient TargetsNo targets recorded. Patient InstructionsNo instructions recorded. Reason for Referral None Reported. Results Created Date Observation Date Name Description Value Unit Range Abnormal Flag Note LastModifiedBy Organization Detail LastModifiedTime 09/29/1909/28/2024 HbA1c (hemo globi n A1c), blood HbA1c 6.3 Not Available [address], [phone], 09/28/2024 08:19:01 10/01/19 25 07/06/2019 colon oscop y proce dure (PROC ) No observ ation record ed. [email or web address] Not Available 09/30 15:18:56 Result Notes None recorded. Problems Name Problem SNOMED Code Status Onset Date Resolution Date Notes Provider Name and Address Organization Details Recorded Time Osteopor osis 85523324 Active 2024 Nuris Sandra APRN [address] [place] [address], [phone] , [place] [employer] 13:27:48 Type 2 diabetes mellitus 92715024 Active 2024 Nuris Sandra APRN [address] [place] [address], [address] , [place] [employer] 13:23:31 Chronic kidney disease stage 4 446682183 Active 2024 Nuris Sandra APRN [address] [place] [address], [address] , [place] [employer] 13:23:41 Acute kidney injury 41908159 Active 2024 Nuris Sandra APRN [address] [place] [address], [address] , [place] [employer] 10:45:03 Renal artery stenosis 580334075 Active 2024 Nuris Sandra APRN [address] [place] [address], [address] , [place] [employer] 17:32:49 Mild major depressi on 81251722 Active 2024 Nuris Sandra APRN [address] [place] [address], [address] , [employer] 17:19:50 Lumbar radiculo juan 854272218 Active 2024 Nuris Sandra APRN [address] [place] [address], [address] , [employer] 17:20:09 Kyphosis of thoracic spine 327640744 Active 2024 Nuris Sandra APRN [address] [place] [address], [address] , [employer] 17:20:40 Tinea corporis 75347778 Completed 201903/26/2022 Problem Code: B35.4; Problem Code Type: ICD-10; SANGEETA COFFEYDOLORES null, [facility] 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 2 13:05:56 Type 2 diabetes mellitus without complica tion 695684900 Active 2018 Not Available [facility] 22:31:34 Vitamin D deficien cy 11301361 Active 2020 Problem Code: E55.9; Problem Code Type: ICD-10; Not Available [facility] 2 22:31:34 Mixed hyperlip idemia 722272378 Active 2019 Problem Code: E78.2; Problem Code Type: ICD-10; Not Available [facility] 2 22:31:34 Generali zed anxiety disorder 03423933 Completed 201608/23/2016 Problem Code: F41.1; Problem Code Type: ICD-10; Not Available [facility] 2 22:31:34 Primary insomnia 2760218 Completed 201602/04/2017 Problem Code: F51.01; Problem Code Type: ICD-10; Not Available [facility] 2 22:31:34 Restless legs 32379681 Completed 201512/15/2019 Problem Code: G25.81; Problem Code Type: ICD-10; Not Available [facility] 2 22:31:35 Acute non-supp urative serous otitis media 307952472 Completed 201903/26/2022 Problem Code: H65.02; Problem Code Type: ICD-10; SANGEETA COFFEYBOBGuille null, [facility] 2 13:05:56 Hyperten sive disorder 68659288 Active 2016 Problem Code: I10; Problem Code Type: ICD-10; Not Available [facility] 2 22:31:35 Acute maxillar y sinusiti s 00406182 Completed 201610/23/2016 Problem Code: J01.00; Problem Code Type: ICD-10; SANGEETA MYNEAR null, [employer] 2 13:05:56 Acute maxillar y sinusiti s 60365867 Completed 201903/26/2022 Problem Code: J01.01; Problem Code Type: ICD-10; SANGEETA MYNEAR null, [employer] 2 13:05:56 Acute maxillar y sinusiti s 58682871 Completed 201608/31/2016 Problem Code: J01.00; Problem Code Type: ICD-10; SANGEETA MYNEAR null, [employer] 2 13:05:56 Acute sinusiti s 90518552 Completed 201612/20/2016 Problem Code: J01.90; Problem Code Type: ICD-10; Not Available [facility] 2 22:31:35 Chronic obstruct canelo pulmonar y disease with acute lower respirat ory infectio n 749019450 Completed 201803/26/2022 Problem Code: J44.0; Problem Code Type: ICD-10; SANGEETA MYNEAR null, [employer] 2 13:05:56 Chronic obstruct canelo pulmonar y disease 59125453 Active 2018 Problem Code: J44.9; Problem Code Type: ICD-10; Not Available [facility] 2 22:31:36 Low back pain 372656015 Completed 202003/19/2021 Problem Code: M54.5; Problem Code Type: ICD-10; Not Available [facility] 2 22:31:36 Generali zed anxiety disorder 16023618 Active 2018 Problem Code: F41.1; Problem Code Type: ICD-10; Not Available [facility] 2 22:31:36 Bony swelling of lumbar spine 999283665 Completed 201512/15/2019 Problem Code: R29.898; Problem Code Type: ICD-10; Not Available [facility] 2 22:31:36 Breast composit ion 354022243 Completed 201803/26/2022 Problem Code: R92.2; Problem Code Type: ICD-10; SANGEETA BURDICK null, [facility] 2 13:05:56 General examinat ion of patient Active 2021 Not Available [facility] 2 22:31:37 Screenin g mammogra phy Completed 201903/26/2022 Problem Code: Z12.31; Problem Code Type: ICD-10; SANGEETA BURDICK null, [facility] 2 13:05:56 Influenz a vaccine needed 63955594376 06 Completed 201912/15/2019 Problem Code: Z23; Problem Code Type: ICD-10; SANGEETA BURDICK null, [facility] 3 14:31:05 Influenz a vaccine needed 25817347064 06 Completed 201909/13/2020 Problem Code: Z23; Problem Code Type: ICD-10; SANGEETA BURDICK null, [facility] 3 14:31:05 Undiffer entiated inflamma tory polyarth ritis 527153001 Active 2021 Problem Code: M13.0; Problem Code Type: ICD-10; Not Available [facility] 2 22:31:38 History of polyp of colon 405014394 Completed 201912/15/2019 Problem Code: Z86.010; Problem Code Type: ICD-10; Not Available [facility] 2 22:31:38 Chronic kidney disease stage 3 386790177 Active 2019 HUR53Wyd es: 'N18.3'; Not Available [facility] 2 22:31:39 Musculos keletal symptom 74286185 Completed 201503/26/2022 Problem Code: 729.89; Problem Code Type: ICD-9; SANGEETA COFFEYDOLORES tyron [facility]. 2 13:05:56 Screenin g mammogra phy Completed 201812/15/2019 Problem Code: Z12.31; Problem Code Type: ICD-10; SANGEETA COFFEYDOLORES tyron [facility] 2 13:05:56 Body mass index 25-29 - overweig 068371265 Active 2021 Problem Code: Z68.29; Problem Code Type: ICD-10; Not Available [facility] 2 22:31:40 Transgera mcgowan insomnia 034176733 Completed 201602/04/2017 Problem Code: 307.41; Problem Code Type: ICD-9; Not Available [facility] 2 22:31:40 Notes:*Problem Name: Occlusi on and stenosis of bilateral carotid arteries *Problem Status: Chronic *Comments: *Problem Code: I65.23 *Problem Code Type: ICD-10 *Note Date: 03/09/2019 Problem Notes None recorded. Procedures Surgical History Date Name Laterality Status Provider Name and Address Organization Details Recorded Time 5 Most Recent Mammogram completed SANGEETA [employer]RLINDABOBPicpl[employer]. 08/14/2024 13:16:24 3 Cryosurgery Warts/Skin Tags completed Nuris Sandra APRN [address] [place], [address], [facility]. 04/15/2023 12:51:49 3 Shave Biopsy completed Nuris Sandra APRN [address] [place], [address], [facility] 12/25/2022 16:33:26 0 Colon Surgery completed SANGEETA [employer]. 03/26/2022 13:08:28 insertion of renal artery stent completed Nuris Sandra APRN [address] [place], [address], [facility] [employer] 10/21/2024 16:58:15 Imaging Results None recorded. Procedure Notes None recorded. Medical Equipment None Reported. Allergies Allergen ID Allergen Name Allergen Category Reaction Reaction Severity Criticality Documentation Date Start Date Code Code System Note Provider Name and Address Organization Details Recorded Time 03099 Zithromax medicatio n Not available Not available Not available 01/23/202219637 4 RxNorm Not Available [facility] 2 22:57:09 11275 Benadryl medicatio n Not available Not available Not available 01/23/202205995 7 RxNorm Not Available [facility] 2 22:57:09 Medications Name Sig [...] Updated DateTime 5 160.02 cm 29.9 kg/m2 96343.1 1 g 98 [degF] 86 /min 95 % 95 % 134/68 mm[Hg] SANGEETA BURDICK [employer] 5 13:22:38 Social History Question Answer Notes LastModified by Organizat ion Details LastModified Time Tobacco Smoking Status Former Smoker Kelli ackerman [employer] 06/25/2022 13:23:34 Do You Have An [...] 03/26/2022 When Did You Quit Smoking? 11-15yearssin celastcilidia te Information not available 03/26/2022 Are There Any Guns Present In Your Home? No Information not available 03/26/2022 Do You Have A Medical Power Of Insurance Producer? No Information not available 03/26/2022 What Was [...] Y Acid Reflux (GERD) Y Hypertension Y Hypothyroidism Y COPD Y Asthma Y Kidney Disease Y Gynecological History Statement/Question Response Date of Last Pap Smear Most Recent Mammogram 07/24/2024 Obstetrics History GPAL:G 0 P 0 0 0 0 Immunizations Vaccine Type Date Status Note Provider Nam e and Address Organization Details Recorded Time Influenza, high-dose, quadrivalent, PF 3 completed Nuris Sandra APRN [address] [facility], [place], [address], [employer] [employer] 04/21/2023 21:15:19 COVID-19, mRNA, LNP-S, PF, 100 mcg/0.5mL dose or 50 mcg/0.25mL dose 1 completed SANGEETA ackerman, [employer] [employer]. 03/26/2022 13:03:41 COVID-19, mRNA, LNP-S, PF, 100 mcg/0.5mL dose or 50 mcg/0.25mL dose 1 completed SANGEETA MYNEAR null, [employer] 03/26/2022 13:03:41 Influenza, split virus, quadrivalent, PF 1 completed Not Available [facility] 04/15/2023 11:36:26 COVID-19, mRNA, LNP-S, PF, 100 mcg/0.5mL dose or 50 mcg/0.25mL dose 1 completed SANGEETA MYNEAR null, [employer] 03/26/2022 13:03:41 Influenza, MDCK, quadrivalent, preservative 9 completed SANGEETA MYNEAR null, [employer] 03/26/2022 13:03:41 pneumococcal polysaccharide PPV23 0 completed Not Available [facility] 04/15/2023 11:36:26 Influenza, split virus, quadrivalent, preservative 0 completed Not Available [facility] 04/15/2023 11:36:26 RSV, recombinant, protein subunit RSVpreF, adjuvant reconstituted, 0.5 mL, PF 5 completed Nuris Sandra APRN [address] [place] [address], [address], [employer] 06/29/2024 14:43:42 COVID-19, mRNA, LNP-S, PF, 100 mcg/0.5mL dose or 50 mcg/0.25mL dose 2 completed SANGEETA MYNEAR null, [employer] 03/26/2022 13:03:41 Influenza, split virus, quadrivalent, PF 2 completed Nuris Sandra APRN [address] [place] [address], [address], [employer] 03/26/2022 17:56:06 COVID-19, mRNA, LNP-S, bivalent, PF, 50 mcg/0.5 mL or 25mcg/0.25 mL dose 3 completed SANGEETA ackerman, [facility] 06/26/2022 14:30:40 COVID-19, mRNA, LNP-S, PF, 50 mcg/0.5 mL 4 completed Nuris Sandra, ASHLYN [address] [place], [address], [facility] [employer] 06/29/2024 13:42:27 Influenza, high-dose, trivalent, PF 4 completed Nuris Sandra, OXYGEN THER[employer]Y TE[employer]ER [address] [place], [address], [facility] [employer] 06/29/2024 13:42:27 Past Encounters Encounter ID Performer Location Encounter Start Date Encounter Closed Date Diagnosis/Indication Diagnosis SNOMED-CT Code Diagnosis ICD10 Code Diagnosis Note [id number] Nuris Sandra [address] [address] 09/28/2024 12:58:57 09/28/2024 13:54:22 Type 2 diabetes mellitus 52087606 E11.9 Continue current medication s. Chronic ki dney disease stage 4 564371722 N18.4 Continue to hydrate well and avoid NSAID drugs. Renal artery stenosis 30 9393896 I70.1 I have called [facility] and she is scheduled for KAYLEEN procedure this week. Health Concerns Section Related Observation LastModified by Organization Detai ls LastModified Time None Recorded Concern Status LastModified by Organization Details LastModified Time None Recorded Payers Encounter Date Sequence Insurance Name Policy Number Policy Cedeño Covered Member ID Cedeño Member ID Guarantor Name 09/28/2024 1 [employer] - GOLD PLUS (MEDICARE REPLACEMENT/A DVANTAGE - HMO) Michelle Castañeda [id number] Michelle Castañeda Notes Date Note Type Note Provider Name and Address Organization Details Recorded Time 09/28/2024 text/html DiabetesReported bypatient.Duration:chr onic Control:usually well controlled; normal range of home blood sugars (in the low 100s); treated with diet and oral medications; hemoglobin A1C has been less than 7; hemoglobin A1C goal is less than 7 Compliance:compliant with medications; compliant with follow-up visits; compliant with home glucose monitoring;noncomplian t with diet; no side effects from medications;noncomplia nt with physical activity Self Care:monitoring glucose daily; checking feet regularly;not seeing eye doctor yearly Associated Symptoms:no weight loss; no dizziness; no sweats; no headaches; no confusion; no increased thirst; no increased appetite; no increased urination; no blurred vision; no numbness of feet; no blurred vision; no paresthesias;weight gain ( lbs);calluses on feet;fatigueHypertensi on F/UReported bypatient.Medications: taking medications as directed; no side effects from [...] and coreg. Nuris Sandra APRN [address] [facility], [place], [address], [facility] 10/16/2024 17:34:56 OBGyn Episode No OBEpisode recorded.
== END 2024-11-19 23:59 | disposition home or self-care (01) ==
LOC: RAD 13:38
PROVIDERS: PCP Nurse Practitioner Family; Visit Provider Nurse Practitioner Family
DX: S22.050A Wedge compression fracture of T5-T6 vertebra, initial encounter for closed fracture (principal); S22.060A Wedge compression fracture of T7-T8 vertebra, initial encounter for closed fracture; M51.34 Other intervertebral disc degeneration, thoracic region; M47.26 Other spondylosis with radiculopathy, lumbar region; M47.25 Other spondylosis with radiculopathy, thoracolumbar region; M47.24 Other spondylosis with radiculopathy, thoracic region; M99.73 Connective tissue and disc stenosis of intervertebral foramina of lumbar region; N26.1 Atrophy of kidney (terminal); Q61.02 Congenital multiple renal cysts; M40.204 Unspecified kyphosis, thoracic region
CPT/HCPCS: 72146; 72148

== ENCOUNTER 2024-12-04 12:55 | Outpatient (CLI) | payer MEDICARE, SELFPAY ==
--- OUTSIDE RECORDS SUMMARY | 2024-10-05 08:51 | XMS_ITS | Encounter Summary ---
Author Organization [employer] ([place], [place], [place], [place]) Address [address] [place] [address] Care Team Providers Care Correction Officer Supervisor Name Role Phone Nuris Sandra APRN Primary Care Provider + [phone] Reason for Referral * Interventional Radiology (Routine) - New Request Specialty Diagnoses / Procedures Referred By Ángelac t Referred To Contact Radiology Diagnoses Renal artery stenosis (HCC) Procedures IR RENAL ANGIOGRAM BILATERAL 1ST ORDER Ganesh Wadsworth MD [address] [place] [address] [address] [place] [address] Phone: tel: fax: Referral ID Status Reason Start Date Expiration Date V isits Requested Visits Authorized [id number] New Request 10/01/2024 10/01/2025 1 1 Reason for Visit * Interventional Radiology (Routine) - New Request Specialty Diagnoses / Procedures Referred By Virginia mcgowan Referred To Contact Radiology Diagnoses Renal artery stenosis (HCC) Procedures IR RENAL ANGIOGRAM BILATERAL [place] [address] [place] [address] [address] [place], [place] [id number] Phone: tel: fax: Referral ID Status Reason Start Date Expiration Date V isits Requested Visits Authorized [id number] New Request 10/01/2024 10/01/2025 1 1 Encounter Details Date Type Department Care Team (Late st Contact Info) Description 10/05/2024 8:51 AM EDT - 10/05/2024 11:59 PM EDT Hospital Encounter [facility] Interventional Radiology Lab 1 [place] [address] Ganesh Wadsworth MD [address] [facility] [address] [place], [place] [id number] Madhu Cardona MD [address] [facility] [address] [place], [place] [id number] Renal artery stenosis (HCC) Discharge Disposition: Home [...] through Care Everywhere. * Renal Artery Stenosis (Iraqi) * Angiogram Care After Ubwg-ro-Iaei (Iraqi) * Moderate Conscious Sedation Adult Care After (Iraqi) documented in this encounter Medications at Time [...] Pt taken by wheelchair to meet daughter (maintenance truck driver) in car. documented in this encounter [...] Range Status POC-EGFR 10/05/2024 40 mL/min/1.73M2 Final Registered Nurse Nursery 10/05/2024 [id number] Final POC-Creatinine 10/05/2024 1.4 (H) 0.6 - [...] electronically signed by Madhu Cardona MD Voice practice assistant technology (InnoCCe) is used for the dictation of this note and sound-alike words might be erroneously placed despite reviewing this note for accuracy. Errors in dictation may reflect use of voice recognition software and not all errors in practice assistant may have been detected prior to signing. [...] with intervention Procedural Radiologist: Madhu Cardona MD Oven Stripper: Non Sedation: 2 mg iv Versed and 100 micrograms iv Fentanyl Findings: Significant right renal artery stenosis. 6 mm DIRECTOR METABOLISM and stenting of right renal artery perfomed [...] - 137 sec 10/05/2024 1:25 PM EDT [facility] Registered Nurse Nursery [id number] 10/05/2024 1:25 PM EDT [facility] Blood 10/05/2024 1:23 PM EDT 10/05/2024 1:25 PM EDT Narrative [facility] - 10/05/2024 1:25 PM EDT Registered Nurse Nursery ID is - [id number] us Ganesh Wadsworth MD POINT OF CARE TEST ORDERABLES F inal Result Performing Organization Address City/State/[facility] Co de Phone Number [facility] [address] [phone] * IR RENAL ANGIOGRAM BILATERAL 1ST ORDER [...] of the renal artery. Subsequently, the Penumbra Lemmon 6 Iraqi thrombectomy catheter was used to remove the thrombus from the renal artery. A second stent was placed inside the previous stent. There was no residual thrombus. Images reviewed, interpreted, dictated and electronically signed by Madhu Cardona MD Voice practice assistant technology (TenKod) is used for the dictation of this note and sound-alike words might be erroneously placed despite reviewing this note for accuracy. Errors in dictation may reflect use of voice recognition software and not all errors in practice assistant may have been detected prior to signing. Narrative 10/05/2024 7:15 PM EDT CO2 ABDOMINAL AORTOGRAM WITH RIGHT RENAL ARTERY STENTING AND MECHANICAL THROMBECTOMY HISTORY: Hypertension, renal insufficiency. FLUOROSCOPY TIME: 44.7 minutes RADIATION DOSE: Reference air kerma 9005 mGy. DAP: 97391 cGy.cm2 PROPHYLACTIC ANTIBIOTIC: The patient was administered [...] placed into the medical record. A 4 Iraqi catheter was then inserted over a glidewire into the abdominal aorta. A CO2 arteriogram was performed. This demonstrates a high-grade stenosis of the right renal artery. Subsequently, a 5.5 Iraqi sheath was inserted to the level of [...] inserted into the renal artery. The penumbra Lemmon 6 Iraqi catheter was then inserted and passed for [...] DOSE: Reference air kerma 9005 mGy. DAP: 70369 cGy.cm2 PROPHYLACTIC ANTIBIOTIC: The patient was administered [...] placed into the medical record. A 4 Iraqi catheter was then inserted over a glidewire into the abdominal aorta. A CO2 arteriogram was performed. This demonstrates a high-grade stenosis of the right renal artery. Subsequently, a 5.5 Iraqi sheath was inserted to the level of [...] inserted into the renal artery. The penumbra Lemmon 6 Iraqi catheter was then inserted and passed for [...] of the renal artery. Subsequently, the Penumbra Lemmon 6 Iraqi thrombectomy catheter was used to remove the thrombus from the renal artery. A second stent was placed inside the previous stent. There was no residual thrombus. Images reviewed, interpreted, dictated and electronically signed by Madhu Cardona MD Voice practice assistant technology (Power Adaptive Computingibe) is used for the dictation of this note and sound-alike words might be erroneously placed despite reviewing this note for accuracy. Errors in dictation may reflect use of voice recognition software and not all errors in practice assistant may have been detected prior to signing. Ganesh Wadsworth MD IM IR ORDERABLES Final Result * (ABNORMAL) POC-Creatinine (10/05/2024 9:51 AM EDT) POC-EGFR 40 mL/min/1. 73M2 10/05/2024 9:54 AM EDT [facility] Comment:Proceed with contras t if eGFR > 45 ml/min/1.73 when performed on the NovaSTAT strip Creatinine meter. Registered Nurse Nursery [id number] 10/05/2024 9:54 AM EDT [facility] POC-Creatinine 1.4(H) 0.6 - 1.3 mg/dL 10/05/2024 9:54 AM EDT [facility] Blood 10/05/2024 9:51 AM EDT 10/05/2024 9:54 AM EDT Narrative [facility] - 10/05/2024 9:54 AM EDT Registered Nurse Nursery ID is - [id number] us Ganesh Wadsworth MD POINT OF CARE TEST ORDERABLES F inal Result [facility] [address] [phone] documented in this encounter Visit Diagnoses Diagnosis [...] mg documented in this encounter Care Teams Correction Officer Supervisor Relationship Specialty Start Date End Date Nuris Sandra, MACHINE STONECUTTER [address] [place] [address] PCP - General Family Medicine 04/08/24 documented as of this encounter
--- OUTSIDE RECORDS SUMMARY | 2024-12-04 12:57 | XMS_ITS | Encounter Summary ---
Author Organization [employer] ([place], [place], [place], [place]) Address [address] [place] [address] Care Team Providers Care Sales Representative Jewelry Name Role Phone Nuris Sandra APRN Primary Care Provider [phone] Encounter Details Date Type Department Care Team [...] on filedocumented in this encounter Care Teams Sales Representative Jewelry Relationship Specialty Start Date End Date Nuris Sandra, LENS BLOCKER [address] [place] [address] PCP - General Family Medicine 04/08/24 documented as of this encounter
--- OUTSIDE RECORDS SUMMARY | 2024-12-04 12:57 | XMS_ITS | Continuity of Care Document ---
Author Organization [place] - [employer] [facility] Address [address] [place] [address] Assessment No assessment recorded. Plan of Treatment Reminders Order Date Submit Date Provider Last Modified By Organization Details Last Modified Time Details Appointments ANNUAL EXAM 2024 03:30P M Dipak Sandra APRN Not available Not available Not available Lab None recorded. Referral None recorded. Procedures None recorded. Surgeries None recorded. Imaging MRI, lumbar spine, w/o contrast 2024 025 [facility] [address], [place], [address], 11/25/2024 19:15:44 MRI, thoracic spine, w/o contrast - first available appt 2024 025 [facility] ([facility]), [address], [place], [address], 11/26/2024 07:57:47 Medication Orders sertralin e 25 mg tablet [address] [facility], [address] [facility], [place], [address], 11/26/2024 13:26:07 Patient TargetsNo targets recorded. Patient InstructionsNo instructions recorded. Reason for Referral None Reported. Results Created Date Observation Date Name Description Value Unit Range Abnormal Flag Note LastModifiedBy Organization Detail LastModifiedTime 10/01/1907/06/2019 colon oscop y proce dure (PROC ) No observ ation record ed. [email or web address] Not Available 09/30 15:18:56 11/26/19 25 11/19/2024 MRI, lumba r spine , w/o contr ast No observ ation record ed. [facility] [address], [place], [place], [address], 11/25/2024 19:15:44 11/27/19 25 11/19/2024 MRI, thora cic spine , w/o contr ast No observ ation record ed. [facility] [address], [place], [place], [address], 11/26/2024 07:57:47 Result Notes None recorded. Problems Name Problem SNOMED Code Status Onset Date Resolution Date Notes Provider Name and Address Organization Details Recorded Time Bony swelling of lumbar spine 607571057 Completed 201512/15/2019 Problem Code: R29.898; Problem Code Type: ICD-10; Not Available [facility] 2 22:31:36 Musculos keletal symptom 06751490 Completed 201503/26/2022 Problem Code: 729.89; Problem Code Type: ICD-9; SANGEETA ackerman, [employer] 2 13:05:56 Restless legs 13273683 Completed 201512/15/2019 Problem Code: G25.81; Problem Code Type: ICD-10; Not Available [facility] 2 22:31:35 Generali zed anxiety disorder 29482442 Completed 201608/23/2016 Problem Code: F41.1; Problem Code Type: ICD-10; Not Available [facility] 2 22:31:34 Acute maxillar y sinusiti s 91861861 Completed 201608/31/2016 Problem Code: J01.00; Problem Code Type: ICD-10; SANGEETA ackerman, [employer] 2 13:05:56 Hyperten sive disorder 20698512 Active 2016 Problem Code: I10; Problem Code Type: ICD-10; Not Available [facility] 2 22:31:35 Acute maxillar y sinusiti s 76238037 Completed 201610/23/2016 Problem Code: J01.00; Problem Code Type: ICD-10; SANGEETA ackerman, [employer] 2 13:05:56 Primary insomnia 5084170 Completed 201602/04/2017 Problem Code: F51.01; Problem Code Type: ICD-10; Not Available [facility] 2 22:31:34 Acute sinusiti s 26627451 Completed 201612/20/2016 Problem Code: J01.90; Problem Code Type: ICD-10; Not Available [facility] 2 22:31:35 Transien t insomnia 964001398 Completed 201602/04/2017 Problem Code: 307.41; Problem Code Type: ICD-9; Not Available [facility] 2 22:31:40 Type 2 diabetes mellitus without complica tion 897459245 Active 2018 Not Available [facility] 2 22:31:34 Chronic obstruct [place] pulmonar y disease 47718011 Active 2018 Problem Code: J44.9; Problem Code Type: ICD-10; Not Available [facility] 2 22:31:36 Generali zed anxiety disorder 93509173 Active 2018 Problem Code: F41.1; Problem Code Type: ICD-10; Not Available [facility] 2 22:31:36 Screenin g mammogra phy Completed 201812/15/2019 Problem Code: Z12.31; Problem Code Type: ICD-10; SANGEETA ackerman, [employer] 2 13:05:56 Breast composit ion 435517279 Completed 201803/26/2022 Problem Code: R92.2; Problem Code Type: ICD-10; SANGEETA ackerman, [employer] 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 2 13:05:56 Chronic obstruct [place] pulmonar y disease with acute lower respirat ory infectio n 546671009 Completed 201803/26/2022 Problem Code: J44.0; Problem Code Type: ICD-10; SANGEETA MYNEAR null, [employer] 2 13:05:56 Hypothyr oidism 80390113 Active 2019 Not Available [facility] 2 22:31:34 Acute maxillar y sinusiti s 98713053 Completed 201903/26/2022 Problem Code: J01.01; Problem Code Type: ICD-10; SANGEETA COFFEYNEAR null, [employer] 2 13:05:56 History of polyp of colon 456773174 Completed 201912/15/2019 Problem Code: Z86.010; Problem Code Type: ICD-10; Not Available [facility] 2 22:31:38 Mixed hyperlip idemia 291395632 Active 2019 Problem Code: E78.2; Problem Code Type: ICD-10; Not Available [facility] 2 22:31:34 Influenz a vaccine needed 16576758138 06 Completed 201912/15/2019 Problem Code: Z23; Problem Code Type: ICD-10; SANGEETA COFFEYNEAR null, [employer] 3 14:31:05 Acute non-supp urative serous otitis media 429473083 Completed 201903/26/2022 Problem Code: H65.02; Problem Code Type: ICD-10; SANGEETA COFFEYNEAR null, [employer] 2 13:05:56 Tinea corporis 42865043 Completed 201903/26/2022 Problem Code: B35.4; Problem Code Type: ICD-10; SANGEETA BURDICK null, [employer] 2 13:05:56 Chronic kidney disease stage 3 268571346 Active 2019 LVU94Wyl es: 'N18.3'; Not Available [facility] 22:31:39 Screenin g mammogra phy Completed 201903/26/2022 Problem Code: Z12.31; Problem Code Type: ICD-10; SANGEETA BURDICK null, [employer] 2 13:05:56 Influenz a vaccine needed 17347041216 06 Completed 201909/13/2020 Problem Code: Z23; Problem Code Type: ICD-10; SANGEETA BURDICK null, [employer] 3 14:31:05 Vitamin D deficien cy 92469237 Active 2020 Problem Code: E55.9; Problem Code Type: ICD-10; Not Available [facility] 22:31:34 Low back pain 677997440 Completed 202003/19/2021 Problem Code: M54.5; Problem Code Type: ICD-10; Not Available [facility] 2 22:31:36 General examinat ion of patient Active 2021 Not Available [facility] 22:31:37 Body mass index 25-29 - overweig ht 017476575 Active 2021 Problem Code: Z68.29; Problem Code Type: ICD-10; Not Available [facility] 2 22:31:40 Undiffer entiated inflamma tory polyarth ritis 867281183 Active 2021 Problem Code: M13.0; Problem Code Type: ICD-10; Not Available [facility] 22:31:38 Osteopor osis 51335340 Active 2024 Nuris Sandra, ASHLYN [address] [place], [address] , [employer] 13:27:48 Type 2 diabetes mellitus 66452902 Active 2024 Nuris Sandra APRN [address] [place] [address], [address] , [employer] 13:23:31 Chronic kidney disease stage 4 875037378 Active 2024 Nuris Sandra APRN [address] [place] [address], [address] , [employer] 13:23:41 Acute kidney injury 38351326 Active 2024 Nuris Sandra APRN [address] [place] [address], [address] , [employer] 10:45:03 Renal artery stenosis 199390552 Active 2024 Nuris Sandra APRN [address] [place] [address], [address] , [employer] 17:32:49 Mild major depressi on 38535362 Active 2024 Nuris Sandra APRN [address] [place] [address], [address] , [employer] 17:19:50 Lumbar radiculo juan 683213263 Active 2024 Nuris Sandra APRN [address] [place] [address], [address] , [employer] 17:20:09 Kyphosis of thoracic spine 907970402 Active 2024 Nuris Sandra APRN [address] [place] [address], [address] , [employer] 17:20:40 Notes:*Problem Name: Occlusi on and stenosis of bilateral carotid arteries *Problem Status: Chronic *Comments: *Problem Code: I65.23 *Problem Code Type: ICD-10 *Note Date: 03/09/2019 Problem Notes None recorded. Procedures Surgical History Date Name Laterality Status Provider Name and Address Organization Details Recorded Time 5 Most Recent Mammogram completed SANGEETA GENNARO [employer] 08/14/2024 13:16:24 3 Cryosurgery Warts/Skin Tags completed Nuris Sandra APRN [address] [place], [address], [employer] 04/15/2023 12:51:49 3 Shave Biopsy completed Nuris Sandra APRN [address] [place], [address], [employer] 12/25/2022 16:33:26 0 Colon Surgery completed SANGEETA [employer] 03/26/2022 13:08:28 insertion of renal artery stent completed Nuris Sandra APRN [address] [place], [address], [employer] 10/21/2024 16:58:15 Imaging Results None recorded. Procedure Notes None recorded. Medical Equipment None Reported. Allergies Allergen ID Allergen Name Allergen Category Reaction Reaction Severity Criticality Documentation Date Start Date Code Code System Note Provider Name and Address Organization Details Recorded Time 88591 Zithromax medicatio n Not available Not available Not available 01/23/2022 60253 4 RxNorm Not Available [facility] 2 22:57:09 93829 Benadryl medicatio n Not available Not available Not available 01/23/202249722 7 RxNorm Not Available [facility] 2 22:57:09 Medications Name Sig Start Date [...] Updated DateTime 5 160.02 cm 29.1 kg/m2 07998.1 5 g 98.1 [degF] 107 /min 94 % 94 % 145/60 mm[Hg] 121/72 mm[Hg] SANGEETA BURDICK [employer] 16:49:36 Social History Question Answer Notes LastModified by Organizat ion Details LastModified Time Tobacco Smoking Status Former Smoker Kelli ackerman, [employer] 06/25/2022 13:23:34 Do You Have An Advance [...] Do You Have A Medical Power Of Dietetic Technician? No Information not available 03/26/2022 What Was [...] Functional Status Question Answer Note LastModified by [employer] ion Details LastModified Time Do you use [...] quadrivalent, PF 3 completed Nuris Sandra APRN [address] [place] [address], [address], [employer] 04/21/2023 21:15:19 COVID-19, mRNA, LNP-S, PF, 100 mcg/0.5mL dose or 50 mcg/0.25mL dose 1 completed SANGEETA MYNEAR null, [employer] 03/26/2022 13:03:41 COVID-19, mRNA, LNP-S, PF, 100 mcg/0.5mL dose or 50 mcg/0.25mL dose 1 completed SANGEETA MYNEAR null, [employer] 03/26/2022 13:03:41 Influenza, split virus, quadrivalent, PF 1 completed Not Available [facility] 04/15/2023 11:36:26 COVID-19, mRNA, LNP-S, PF, 100 mcg/0.5mL dose or 50 mcg/0.25mL dose 1 completed SANGEETA MYNEAR null, [employer] 03/26/2022 13:03:41 Influenza, MDCK, quadrivalent, preservative 9 completed SANGEETA MYNEAR null, [employer] 03/26/2022 13:03:41 pneumococcal polysaccharide PPV23 0 completed Not Available [facility] 04/15/2023 11:36:26 Influenza, split virus, quadrivalent, preservative 0 completed Not Available [facility] 04/15/2023 11:36:26 RSV, recombinant, protein subunit RSVpreF, adjuvant reconstituted, 0.5 mL, PF 5 completed Nuris Sandra APRN [address] [place] [address], [address], [facility] [employer] 06/29/2024 14:43:42 COVID-19, mRNA, LNP-S, PF, 100 mcg/0.5mL dose or 50 mcg/0.25mL dose 2 completed SANGEETA ackerman, [place] [employer] 03/26/2022 13:03:41 Influenza, split virus, quadrivalent, PF 2 completed Nuris Sandra APRN [address] [place] [address], [address], [facility] [employer] 03/26/2022 17:56:06 COVID-19, mRNA, LNP-S, bivalent, PF, 50 mcg/0.5 mL or 25mcg/0.25 mL dose 3 completed SANGEETA ackerman, [facility] [employer] 06/26/2022 14:30:40 COVID-19, mRNA, LNP-S, PF, 50 mcg/0.5 mL 4 completed Nuris Sandra APRN [address] [place] [address], [address], [facility] [employer] 06/29/2024 13:42:27 Influenza, high-dose, trivalent, PF 4 completed Nuris Sandra APRN [address] [place] [address], [address], [facility] [employer] 06/29/2024 13:42:27 Past Encounters Encounter ID Performer Location Encounter Start Date Encounter Closed Date Diagnosis/Indication Diagnosis SNOMED-CT Code Diagnosis ICD10 Code Diagnosis Note [id number] Nuris Sandra [address] [address] 09/28/2024 12:58:57 09/28/2024 13:54:22 Type 2 diabetes mellitus [id number] E11.9 Continue current medication s. Chronic ki dney disease stage 4 762392797 N18.4 Continue to hydrate well and avoid NSAID drugs. Renal artery stenosis 30 3114497 I70.1 I have called [facility] in [place] and she is scheduled for KAYLEEN procedure this week. [id number] Nuris Sandra APRN [address] [address] 10/21/2024 16:28:38 10/22/2024 08:31:06 Mild major depression 69056674 F32.0 Start Zoloft. Encouraged she consider grief counseling . Continue hydroxyzin e. Lumbar radiculopathy 128 534191 M54.16 Has failed muscle relaxants, alternate ice and heat. Cannot afford Physical therapy and has failed tylenol and voltaren gel. She cannot take NSAIDS due to CKD. Is developing myelopathy in legs. Kyphosis o f thoracic spine 740330986 M40.204 Developing neuralgias in right trapezius with numbness and tingling. Health Concerns Section Related Observation LastModified by Organization Detroyce ls LastModified Time None Recorded Concern Status LastModified by Organization Details LastModified Time None Recorded Payers Encounter Date Sequence Insurance Name Policy Number Policy Cedeño Covered Member ID Cedeño Member ID Guarantor Name 10/21/2024 1 [employer] - GOLD PLUS (MEDICARE REPLACEMENT/A DVANTAGE - HMO) Michelle Castañeda [id number] Michelle Castañeda Notes Date Note Type Note [...] MRI of spine. Nuris Sandra, ASHLYN [address] [facility], [place], [address], [facility] [employer] 10/23/2024 15:19:53 OBGyn Episode No OBEpisode recorded.
--- OUTSIDE RECORDS SUMMARY | 2024-12-04 12:57 | XMS_ITS | Referral Summary ---
Author Organization [employer] ([place], [place], [place], [place]) Address [address] [place] [address] Care Team Providers Care Laboratory Immunologist Name Role Phone JocyNuris Bonnie GOLDBERG Primary Care Provider [phone] Encounters Date Type Department Care Team Description 10/05/2024 Travel 10/05/2024 8:51 AM EDT - 10/05/2024 11:59 PM EDT Hospital Encounter [facility] Interventional Radiology Lab [address] [place] [address] Ganesh Wadsworth MD [place], Dale [...] - 137 sec 10/05/2024 1:25 PM EDT [facility] [employer] Practitioner [id number] 10/05/2024 1:25 PM EDT [facility] Blood 10/05/2024 1:23 PM EDT 10/05/2024 1:25 PM EDT Narrative [facility] - 10/05/2024 1:25 PM EDT [employer] Practitioner ID is - [id number] Ganesh Wadsworth MD POINT OF CARE TEST ORDERABLES F inal Result [facility] [address] [phone] * IR RENAL ANGIOGRAM BILATERAL 1ST ORDER [...] of the renal artery. Subsequently, the [place] 6 Spanish thrombectomy catheter was used to remove the thrombus from the renal artery. A second stent was placed inside the previous stent. There was no residual thrombus. Images reviewed, interpreted, dictated and electronically signed by Madhu Cardona MD Voice job interviewer technology (OnLive) is used for the dictation of this note and sound-alike words might be erroneously placed despite reviewing this note for accuracy. Errors in dictation may reflect use of voice recognition software and not all errors in job interviewer may have been detected prior to signing. Narrative 10/05/2024 7:15 PM EDT CO2 ABDOMINAL AORTOGRAM WITH RIGHT RENAL ARTERY STENTING AND MECHANICAL THROMBECTOMY HISTORY: Hypertension, renal insufficiency. FLUOROSCOPY TIME: 44.7 minutes RADIATION DOSE: Reference air kerma 9005 mGy. DAP: 64641 cGy.cm2 PROPHYLACTIC ANTIBIOTIC: The patient was administered [...] placed into the medical record. A 4 Spanish catheter was then inserted over a glidewire into the abdominal aorta. A CO2 arteriogram was performed. This demonstrates a high-grade stenosis of the right renal artery. Subsequently, a 5.5 Spanish sheath was inserted to the level of [...] inserted into the renal artery. The [place] 6 Spanish catheter was then inserted and passed for [...] DOSE: Reference air kerma 9005 mGy. DAP: 50253 cGy.cm2 PROPHYLACTIC ANTIBIOTIC: The patient was administered [...] placed into the medical record. A 4 Spanish catheter was then inserted over a glidewire into the abdominal aorta. A CO2 arteriogram was performed. This demonstrates a high-grade stenosis of the right renal artery. Subsequently, a 5.5 Spanish sheath was inserted to the level of [...] inserted into the renal artery. The [place] 6 Spanish catheter was then inserted and passed for [...] of the renal artery. Subsequently, the [place] 6 Spanish thrombectomy catheter was used to remove the thrombus from the renal artery. A second stent was placed inside the previous stent. There was no residual thrombus. Images reviewed, interpreted, dictated and electronically signed by Madhu Cardona MD Voice job interviewer technology (OnLive) is used for the dictation of this note and sound-alike words might be erroneously placed despite reviewing this note for accuracy. Errors in dictation may reflect use of voice recognition software and not all errors in job interviewer may have been detected prior to signing. Ganesh Wadsworth MD [facility] IR ORDERABLES Final Result * (ABNORMAL) POC-Creatinine (10/05/2024 9:51 AM EDT) POC-EGFR 40 mL/min/1. 73M2 10/05/2024 9:54 AM EDT [facility] Comment:Proceed with contras t if eGFR > 45 ml/min/1.73 when performed on the NovaSTAT strip Creatinine meter. [employer] Practitioner [id number] 10/05/2024 9:54 AM EDT [facility] POC-Creatinine 1.4(H) 0.6 - 1.3 mg/dL 10/05/2024 9:54 AM EDT [facility] Blood 10/05/2024 9:51 AM EDT 10/05/2024 9:54 AM EDT Narrative [facility] - 10/05/2024 9:54 AM EDT [employer] Practitioner ID is - [id number] us Ganesh Wadsworth MD POINT OF CARE TEST ORDERABLES F inal Result [facility] [address] [phone] from Last 3 Months Insurance [facility] MEDICARE PPO Care Teams Laboratory Immunologist Relationship Specialty Start Date End Date Nuris Sandra, INSPECTOR [employer] [address] [place] [address] PCP - General Family Medicine 04/08/24
--- OUTSIDE RECORDS SUMMARY | 2024-12-04 12:57 | XMS_ITS | Clinical Summary ---
Author Organization Jayme GALLOTEMI OD Address [facility] [place] [address] Phone Care Team Providers Care Visitor Services Specialist Name Role Phone Unavailable Primary Care Provider [...] Impressions 05/03/2020 9:09 AM EST Benign finding ([id number]) ~ RECOMMENDATION: Routine screening mammogram in 1 [...] the next mammogram, in accordance with the [place] [employer] and the Society of Breast Imaging recommendations. Narrative 05/03/2020 9:09 AM EST Procedure:MM MAMMO DIGITAL CARY SCREEN BILAT ~ Reason for exam: screening, asymptomatic. Z12.39-Encounter for other screening for malignant neoplasm of pjyvrf-MXI-65-CM ~ MM MAMMO DIGITAL CARY SCREEN BILAT [...] for other screening for malignant neoplasm of wnmukm-BTX-11-CM ~ MM MAMMO DIGITAL CARY SCREEN BILAT Bilateral CC and MLO view(s) were taken. The breast tissue is heterogeneously dense. This may lower thesensitivity of mammography. Prior study comparison: None available No mammographic evidence of malignancy. Multiple scattered coarse calcifications bilaterally. ~ IMPRESSION: Benign finding ([id number]) ~ RECOMMENDATION: Routine screening mammogram in 1 [...] the next mammogram, in accordance with the [place] [employer] and the Society of Breast Imaging recommendations. Nuris Jocy GOLDBERG IMG MAMMOGRAPHY ORDERABLES Fin al Result from Last 3 Months or Most Recently Relevant to Health Maintenance Insurance [employer] MEDICARE PPO MR
--- OUTSIDE RECORDS SUMMARY | 2024-12-04 12:57 | XMS_ITS | Clinical Summary ---
Author Organization [employer] ([place], [place], [place], [place]) Address [address] [place] [address] Care Team Providers Care Newspaper Copy Editor Name Role Phone Nuris Sandra APRN Primary Care Provider + [phone] Allergies Active Allergy Reactions Criticality Noted Date [...] PM EDT Hospital Encounter [facility] Interventional Radiology Lab [address] [place] [address] Ganesh Wadsworth MD Absher, Dale [...] - 137 sec 10/05/2024 1:25 PM EDT [facility] Form Grader Operator [id number] 10/05/2024 1:25 PM EDT [facility] Blood 10/05/2024 1:23 PM EDT 10/05/2024 1:25 PM EDT Narrative [facility] - 10/05/2024 1:25 PM EDT Form Grader Operator ID is - [id number] us Ganesh Wadsworth MD POINT OF CARE TEST ORDERABLES F inal Result [facility] [address] [phone] * IR RENAL ANGIOGRAM BILATERAL 1ST ORDER [...] of the renal artery. Subsequently, the Penumbra Victoria 6 Niuean thrombectomy catheter was used to remove the thrombus from the renal artery. A second stent was placed inside the previous stent. There was no residual thrombus. Images reviewed, interpreted, dictated and electronically signed by Madhu Cardona MD Voice track helper technology ([employer] is used for the dictation of this note and sound-alike words might be erroneously placed despite reviewing this note for accuracy. Errors in dictation may reflect use of voice recognition software and not all errors in track helper may have been detected prior to signing. Narrative 10/05/2024 7:15 PM EDT CO2 ABDOMINAL AORTOGRAM WITH RIGHT RENAL ARTERY STENTING AND MECHANICAL THROMBECTOMY HISTORY: Hypertension, renal insufficiency. FLUOROSCOPY TIME: 44.7 minutes RADIATION DOSE: Reference air kerma 9005 mGy. DAP: 73576 cGy.cm2 PROPHYLACTIC ANTIBIOTIC: The patient was administered [...] placed into the medical record. A 4 Niuean catheter was then inserted over a glidewire into the abdominal aorta. A CO2 arteriogram was performed. This demonstrates a high-grade stenosis of the right renal artery. Subsequently, a 5.5 Niuean sheath was inserted to the level of [...] inserted into the renal artery. The penumbra Victoria 6 Niuean catheter was then inserted and passed for [...] DOSE: Reference air kerma 9005 mGy. DAP: [id number] cGy.cm2 PROPHYLACTIC ANTIBIOTIC: The patient was administered [...] placed into the medical record. A 4 Niuean catheter was then inserted over a glidewire into the abdominal aorta. A CO2 arteriogram was performed. This demonstrates a high-grade stenosis of the right renal artery. Subsequently, a 5.5 Niuean sheath was inserted to the level of [...] inserted into the renal artery. The penumbra Victoria 6 Niuean catheter was then inserted and passed for [...] of the renal artery. Subsequently, the Penumbra Victoria 6 Niuean thrombectomy catheter was used to remove the thrombus from the renal artery. A second stent was placed inside the previous stent. There was no residual thrombus. Images reviewed, interpreted, dictated and electronically signed by Madhu Cardona MD Voice track helper technology ([employer] is used for the dictation of this note and sound-alike words might be erroneously placed despite reviewing this note for accuracy. Errors in dictation may reflect use of voice recognition software and not all errors in track helper may have been detected prior to signing. us Ganesh Wadsworth MD IMG IR ORDERABLES Final Result * (ABNORMAL) POC-Creatinine (10/05/2024 9:51 AM EDT) POC-EGFR 40 mL/min/1. 73M2 10/05/2024 9:54 AM EDT [facility] Comment:Proceed with contras t if eGFR > 45 ml/min/1.73 when performed on the NovaSTAT strip Creatinine meter. Form Grader Operator [id number] 10/05/2024 9:54 AM EDT [facility] POC-Creatinine 1.4(H) 0.6 - 1.3 mg/dL 10/05/2024 9:54 AM EDT [facility] Blood 10/05/2024 9:51 AM EDT 10/05/2024 9:54 AM EDT Narrative [facility] - 10/05/2024 9:54 AM EDT Form Grader Operator ID is - [id number] us Ganesh Wadsworth MD POINT OF CARE TEST ORDERABLES F inal Result [facility] [address] [phone] from Last 3 Months Insurance [facility] MEDICARE PPO Care Teams Newspaper Copy Editor Relationship Specialty Start Date End Date Nuris Sandra, RESAW MACHINE OPERATOR [address] [place] [address] PCP - General Family Medicine 04/08/24
--- OUTSIDE RECORDS SUMMARY | 2024-12-04 12:57 | XMS_ITS | Data Portability ---
Author Organization [facility] Address [address] [address] Assessment No assessment recorded. Plan of Treatment Reminders Order Date Submit Date Provider Last Modified By Organization Details Last Modified Time Details Appointments ANNUAL EXAM 2024 03:30P Ezekiel Sandra APRN Not available Not available Not available Lab HbA1c (hemoglob in A1c), blood [address], [address], 09/28/2024 13:31:57 urinalysi s, dipstick [address], [address], 08/14/2024 13:54:02 HbA1c (hemoglob in A1c), blood [address], [address], 06/29/2024 14:00:13 Referral None recorded. Procedures None recorded. Surgeries None recorded. Imaging MRI, lumbar spine, w/o contrast 2024 025 Psychiatric ([facility]), [address], [place], [address], 11/25/2024 19:15:44 MRI, thoracic spine, w/o contrast - first available appt 2024 025 Psychiatric (Scheduling), [address], [place], [address], 11/26/2024 07:57:47 LDCT, chest, for lung cancer screening - same day as mammo and dexa 2024 025 Psychiatric (Scheduling), [address], [place], [address], 07/24/2024 11:06:58 DEXA 2024 025 Psychiatric Scheduling Department -New Scheduling Process, [address], [place], [address], 07/24/2024 13:14:58 MAMMO, screening , digital, bilateral - same day as dexa please 2024 025 Psychiatric -New Scheduling, [address] [place] [address] [address], [place], [address], 07/28/2024 06:22:41 US, duplex, renal artery - TRY TO SCHEDULE ON 05/08 SHE IS ALREADY HAVING ECHO AND STRESS TEST THAT DAY. 2023 024 Psychiatric (Scheduling), [address], [place], [address], 05/08/2024 12:11:12 Medication Orders sertralin e 25 mg tablet 2024 025 [facility], [facility], [place], [address], 11/26/2024 13:26:07 Prolia 60 mg/mL subcutane ous syringe 2024 025 [email or web address] Not available 08/14/2024 14:08:50 Calcium 600 + D(3) 600 mg-10 mcg (400 unit) tablet 2024 025 [facility], [address] [place] [address], [address], 11/26/2024 13:26:08 cyclobenz aprine 10 mg tablet 2024 025 [facility], [address] [place] [address], [address], 08/14/2024 14:29:54 ondansetr on 4 mg disintegr ating tablet 2023 025 [facility], [address] [place] [address], [address], 08/14/2024 11:44:00 Patient TargetsNo targets recorded. Patient Instructions Encounter Date Encounter Id Patient Instructions Last Modified By Organization Details Last Modified Time 06/29/2024 [id number] diabetic eye exam* [email or web address] Not available 07/16/2024 14:02:07 Reason for Referral None Reported. Results Created Date Observation Date Name Description Value Unit Range Abnormal Flag Note LastModifiedBy Organization Detail LastModifiedTime 05/18/2005/19/2024 URINA LYSIS , COMPL ETE specific gravity 1.013 1.005- 1.030 normal Not Available [facility] ([facility]) [address] [facility], [place], [address], 05/19/2024 05:06:22 05/18/2005/19/2024 URINA LYSIS , COMPL ETE pH 5.5 5.0-7. 5 normal Not Available [facility] ([facility]) [address] [facility], [place], [address], 05/19/2024 05:06:22 05/18/20 24 05/19/2024 URINA LYSIS , COMPL ETE urine-color Yellow yellow Not Available [facility] ([facility]) [address] [place], [address], 05/19/2024 05:06:22 05/18/20 24 05/19/2024 URINA LYSIS , COMPL ETE appearance Clear clear Not Available [facility] ([facility]) [address] [facility], [place], [address], 05/19/2024 05:06:22 05/18/20 24 05/19/2024 URINA LYSIS , COMPL ETE WBC esterase 2+ negati ve abnormal Not Available [facility] ([facility]) [address] [facility], [place], [address], 05/19/2024 05:06:22 05/18/20 24 05/19/2024 URINA LYSIS , COMPL ETE protein Negati ve negati ve/tra ce Not Available [facility] ([facility]) [address] [facility], [place], [address], 05/19/2024 05:06:22 05/18/20 24 05/19/2024 URINA LYSIS , COMPL ETE glucose Negati ve negati ve Not Available [facility] ([facility]) [address] [facility], [place], [address], 05/19/2024 05:06:22 05/18/20 24 05/19/2024 URINA LYSIS , COMPL ETE ketones Negati ve negati ve Not Available [facility] ([facility]) [address] [facility], [place], [address], 05/19/2024 05:06:22 05/18/20 24 05/19/2024 URINA LYSIS , COMPL ETE occult blood Negati ve negati ve Not Available [facility] ([facility]) [address] [facility], [place], [address], 05/19/2024 05:06:22 05/18/20 24 05/19/2024 URINA LYSIS , COMPL ETE bilirubin Negati ve negati ve Not Available [facility] ([facility]) [address] [facility], [place], [address], 05/19/2024 05:06:22 05/18/20 24 05/19/2024 URINA LYSIS , COMPL ETE urobilinogen ,semi-qn 0.2 mg/dL 0.2-1. 0 normal Not Available [facility] ([facility]) [address] [facility], [place], [address], 05/19/2024 05:06:22 05/18/20 24 05/19/2024 URINA LYSIS , COMPL ETE nitrite, urine Negati ve negati ve Not Available [facility] ([facility]) [address] [facility], [place], [address], 05/19/2024 05:06:22 05/18/20 24 05/19/2024 URINA LYSIS , COMPL ETE microscopic examination See below: Micro scopi c was indic ated and was perfo rmed. Not Available [facility] ([facility]) [address] [facility], [place], [address], 05/19/2024 05:06:22 05/18/20 24 05/19/2024 URINA LYSIS , COMPL ETE WBC >30 /hpf 0 - 5 abnormal Not Available [facility] ([facility]) [address] [place], [address], 05/19/2024 05:06:22 05/18/20 24 05/19/2024 URINA LYSIS , COMPL ETE RBC None seen /hpf 0 - 2 Not Available [facility] ([facility]) [address] [place], [address], 05/19/2024 05:06:22 05/18/20 24 05/19/2024 URINA LYSIS , COMPL ETE epithelial cells (non renal) 0-10 /hpf 0 - 10 Not Available [facility] ([facility]) [address] [place], [address], 05/19/2024 05:06:22 05/18/20 24 05/19/2024 URINA LYSIS , COMPL ETE epithelial cells (renal) SENIOR ENGINEERING TECH Not Available [facility] ([facility]) [address] [facility], [place], [address], 05/19/2024 05:06:22 05/18/20 24 05/19/2024 URINA LYSIS , COMPL ETE casts None seen /lpf none seen Not Available [facility] ([facility]) [address] [facility], [place], [address], 05/19/2024 05:06:22 05/18/20 24 05/19/2024 URINA LYSIS , COMPL ETE cast type SENIOR ENGINEERING TECH Not Available [facility] ([facility]) [address] [facility], [place], [address], 05/19/2024 05:06:22 05/18/20 24 05/19/2024 URINA LYSIS , COMPL ETE crystals SENIOR ENGINEERING TECH Not Available [facility] ([facility]) [address] [facility], [place], [address], 05/19/2024 05:06:22 05/18/20 24 05/19/2024 URINA LYSIS , COMPL ETE crystal type SENIOR ENGINEERING TECH Not Available [facility]) [address] [facility], [place], [address], 05/19/2024 05:06:22 05/18/20 24 05/19/2024 URINA LYSIS , COMPL ETE mucus threads SENIOR ENGINEERING TECH Not Available [facility] ([facility]) [address] [facility], [place], [address], 05/19/2024 05:06:22 05/18/20 24 05/19/2024 URINA LYSIS , COMPL ETE bacteria None seen none seen/f ew Not Available [facility] ([facility]) [address] [facility], [place], [address], 05/19/2024 05:06:22 05/18/20 24 05/19/2024 URINA LYSIS , COMPL ETE yeast SENIOR ENGINEERING TECH Not Available [facility] ([facility]) [address], [place], [address], 05/19/2024 05:06:22 05/18/20 24 05/19/2024 URINA LYSIS , COMPL ETE trichomonas SENIOR ENGINEERING TECH Not Available [facility] ([facility]) [address] [place], [address], 05/19/2024 05:06:22 05/18/20 24 05/19/2024 URINA LYSIS , COMPL ETE comment SENIOR ENGINEERING TECH Not Available [facility] ([facility]) [address] [place], [address], 05/19/2024 05:06:22 05/18/20 24 05/19/2024 URINA LYSIS , COMPL ETE microscopic examination SENIOR ENGINEERING TECH Not Available [facility]) [address] [place], [address], 05/19/2024 05:06:22 05/18/20 24 05/19/2024 RENAL PANEL (10) glucose 129 mg/dL 70-99 above high normal Not Available [facility] ([facility]) [address] [place], [address], 05/19/2024 05:06:23 05/18/20 24 05/19/2024 RENAL PANEL (10) BUN 29 mg/dL 8-27 above high normal Not Available [facility] ([facility]) [address] [facility] [place], [address], 05/19/2024 05:06:23 05/18/20 24 05/19/2024 RENAL PANEL (10) creatinine 1.55 mg/dL 0.57-1 .00 above high normal Not Available [facility] ([facility]) [address] [facility] [place], [address], 05/19/2024 05:06:23 05/18/20 24 05/19/2024 RENAL PANEL (10) eGFR 36 mL/mi n/1.7 3 >59 below low normal Not Available [facility] ([facility]) [address], [place], [address], 05/19/2024 05:06:23 05/18/20 24 05/19/2024 RENAL PANEL (10) BUN/creatini ne ratio 19 12-28 normal Not Available [facility] ([facility]) [address] [place], [address], 05/19/2024 05:06:23 05/18/20 24 05/19/2024 RENAL PANEL (10) sodium 141 mmol/ L 134-14 4 normal Not Available [facility] ([facility]) [address] [place], [address], 05/19/2024 05:06:23 05/18/20 24 05/19/2024 RENAL PANEL (10) potassium 4.3 mmol/ L 3.5-5. 2 normal Not Available [facility] ([facility]) [address], [place], [address], 05/19/2024 05:06:23 05/18/20 24 05/19/2024 RENAL PANEL (10) chloride 102 mmol/ L 96-106 normal Not Available [facility] ([facility]) [address] [place], [address], 05/19/2024 05:06:23 05/18/20 24 05/19/2024 RENAL PANEL (10) carbon dioxide, total 22 mmol/ L 20-29 normal Not Available [facility] ([facility]) [address] [place], [address], 05/19/2024 05:06:23 05/18/20 24 05/19/2024 RENAL PANEL (10) calcium 9.9 mg/dL 8.7-10 .3 normal Not Available [facility] ([facility]) [address] [place], [address], 05/19/2024 05:06:23 05/18/20 24 05/19/2024 RENAL PANEL (10) phosphorus 3.2 mg/dL 3.0-4. 3 normal Not Available [facility] ([facility]) [address] [facility], [place], [address], 05/19/2024 05:06:23 05/18/20 24 05/19/2024 RENAL PANEL (10) albumin 4.7 g/dL 3.9-4. 9 normal Not Available [facility] ([facility]) [address] [facility], [place], [address], 05/19/2024 05:06:23 06/29/19 25 06/29/2024 HbA1c (hemo globi n A1c), blood HbA1c 6.4 Not Available [address], [address], 06/29/2024 08:00:49 08/15/19 25 08/14/2024 urina lysis , dipst ick Leukocytes Small Not Available [address], [address], 08/14/2024 13:36:42 08/15/19 25 08/14/2024 urina lysis , dipst ick Nitrite negati ve Not Available [address], [address], 08/14/2024 13:36:42 08/15/19 25 08/14/2024 urina lysis , dipst ick Urobilinogen .2 Not Available [address], [address], 08/14/2024 13:36:42 08/15/19 25 08/14/2024 urina lysis , dipst ick Protein Negati ve Not Available [address], [address], 08/14/2024 13:36:42 08/15/19 25 08/14/2024 urina lysis , dipst ick pH 5.5 Not Available [address], [address], 08/14/2024 13:36:42 08/15/19 25 08/14/2024 urina lysis , dipst ick Blood Negati ve Not Available [address], [address], 08/14/2024 13:36:42 08/15/19 25 08/14/2024 urina lysis , dipst ick Specific [place] 1.025 Not Available [address], [address], 08/14/2024 13:36:42 08/15/19 25 08/14/2024 urina lysis , dipst ick Ketone Negati ve Not Available [address], [address], 08/14/2024 13:36:42 08/15/19 25 08/14/2024 urina lysis , dipst ick Bilirubin Negati ve Not Available [address], [address], 08/14/2024 13:36:42 08/15/1908/14/2024 urina lysis , dipst ick Glucose Negati ve Not Available [address], [address], 08/14/2024 13:36:42 08/15/19 25 08/14/2024 urina lysis , dipst ick Appearance Clear Not Available [address], [address], 08/14/2024 13:36:42 08/15/19 25 08/14/2024 urina lysis , dipst ick Color Yellow Not Available [address], [place], [address], 08/14/2024 13:36:42 09/17/19 25 09/17/2024 URINA LYSIS , COMPL ETE specific gravity 1.014 1.005- 1.030 normal Not Available [facility] ([facility]) [address] [facility], [place], [address], 09/17/2024 12:14:09 09/17/19 25 09/17/2024 URINA LYSIS , COMPL ETE pH 6.0 5.0-7. 5 normal Not Available [facility] ([facility]) [address] [facility], [place], [address], 09/17/2024 12:14:09 09/17/19 25 09/17/2024 URINA LYSIS , COMPL ETE urine-color Yellow yellow Not Available [facility] ([facility]) [address] [facility], [place], [address], 09/17/2024 12:14:09 09/17/19 25 09/17/2024 URINA LYSIS , COMPL ETE appearance Clear clear Not Available [facility] ([facility]) [address] [facility], [place], [address], 09/17/2024 12:14:09 09/17/19 25 09/17/2024 URINA LYSIS , COMPL ETE WBC esterase 2+ negati ve abnormal Not Available [facility] ([facility]) [address] [place], [address], 09/17/2024 12:14:09 09/17/19 25 09/17/2024 URINA LYSIS , COMPL ETE protein Trace negati ve/tra ce Not Available [facility] ([facility]) [address] [place], [address], 09/17/2024 12:14:09 09/17/19 25 09/17/2024 URINA LYSIS , COMPL ETE glucose Negati ve negati ve Not Available [facility] ([facility]) [address] [place], [address], 09/17/2024 12:14:09 09/17/19 25 09/17/2024 URINA LYSIS , COMPL ETE ketones Negati ve negati ve Not Available [facility] ([facility]) [address] [place], [address], 09/17/2024 12:14:09 09/17/19 25 09/17/2024 URINA LYSIS , COMPL ETE occult blood Negati ve negati ve Not Available [facility] ([facility]) [address] [place], [address], 09/17/2024 12:14:09 09/17/19 25 09/17/2024 URINA LYSIS , COMPL ETE bilirubin Negati ve negati ve Not Available [facility] ([facility]) [address] [place], [address], 09/17/2024 12:14:09 09/17/19 25 09/17/2024 URINA LYSIS , COMPL ETE urobilinogen ,semi-qn 0.2 mg/dL 0.2-1. 0 normal Not Available [facility] ([facility]) [address] [place], [address], 09/17/2024 12:14:09 09/17/19 25 09/17/2024 URINA LYSIS , COMPL ETE nitrite, urine Negati ve negati ve Not Available [facility] ([facility]) [address] [place], [address], 09/17/2024 12:14:09 09/17/19 25 09/17/2024 URINA LYSIS , COMPL ETE microscopic examination See below: Micro scopi c was indic ated and was perfo rmed. Not Available [facility] ([facility]) [address] [facility], [place], [address], 09/17/2024 12:14:09 09/17/19 25 09/17/2024 URINA LYSIS , COMPL ETE WBC >30 /hpf 0 - 5 abnormal Not Available [facility] ([facility]) [address] [facility], [place], [address], 09/17/2024 12:14:09 09/17/19 25 09/17/2024 URINA LYSIS , COMPL ETE RBC 0-2 /hpf 0 - 2 Not Available [facility] ([facility]) [address] [facility], [place], [address], 09/17/2024 12:14:09 09/17/19 25 09/17/2024 URINA LYSIS , COMPL ETE epithelial cells (non renal) 0-10 /hpf 0 - 10 Not Available [facility] ([facility]) [address] [facility], [place], [address], 09/17/2024 12:14:09/17/19 25 09/17/2024 URINA LYSIS , COMPL ETE epithelial cells (renal) SENIOR ENGINEERING TECH Not Available [facility] ([facility]) [address] [facility], [place], [address], 09/17/2024 12:14:09 09/17/19 25 09/17/2024 URINA LYSIS , COMPL ETE casts None seen /lpf none seen Not Available [facility] ([facility]) [address] [facility], [place], [address], 09/17/2024 12:14:09/17/19 25 09/17/2024 URINA LYSIS , COMPL ETE cast type SENIOR ENGINEERING TECH Not Available [facility] ([facility]) [address] [facility], [place], [address], 09/17/2024 12:14:09 09/17/19 25 09/17/2024 URINA LYSIS , COMPL ETE crystals SENIOR ENGINEERING TECH Not Available [facility] ([facility]) [address] [facility], [place], [address], 09/17/2024 12:14:09 09/17/19 25 09/17/2024 URINA LYSIS , COMPL ETE crystal type SENIOR ENGINEERING TECH Not Available [facility]) [address] [facility], [place], [address], 09/17/2024 12:14:09 09/17/19 25 09/17/2024 URINA LYSIS , COMPL ETE mucus threads SENIOR ENGINEERING TECH Not Available [facility] ([facility]) [address] [facility], [place], [address], 09/17/2024 12:14:09 09/17/19 25 09/17/2024 URINA LYSIS , COMPL ETE bacteria None seen none seen/f ew Not Available [facility] ([facility]) [address] [facility], [place], [address], 09/17/2024 12:14:09/17/19 25 09/17/2024 URINA LYSIS , COMPL ETE yeast SENIOR ENGINEERING TECH Not Available [facility] ([facility]) [address] [facility], [place], [address], 09/17/2024 12:14:09/17/19 25 09/17/2024 URINA LYSIS , COMPL ETE trichomonas SENIOR ENGINEERING TECH Not Available [facility]) [address] [facility], [place], [address], 09/17/2024 12:14:09/17/19 25 09/17/2024 URINA LYSIS , COMPL ETE comment SENIOR ENGINEERING TECH Not Available [facility] ([facility]) [address] [facility], [place], [address], 09/17/2024 12:14:09 09/17/19 25 09/17/2024 URINA LYSIS , COMPL ETE microscopic examination SENIOR ENGINEERING TECH Not Available [facility] [address] [facility] [place], [address], 09/17/2024 12:14:09 09/17/19 25 09/17/2024 RENAL PANEL (10) glucose 159 mg/dL 70-99 above high normal Not Available [facility] ([facility]) [address] [facility] [place], [address], 09/17/2024 12:14:10 09/17/19 25 09/17/2024 RENAL PANEL (10) BUN 21 mg/dL 8-27 normal Not Available [facility] ([facility]) [address] [facility] [place], [address], 09/17/2024 12:14:10 09/17/19 25 09/17/2024 RENAL PANEL (10) creatinine 2.67 mg/dL 0.57-1 .00 above high normal Not Available [facility] ([facility]) [address] [facility] [place], [address], 09/17/2024 12:14:10 09/17/19 25 09/17/2024 RENAL PANEL (10) eGFR 19 mL/mi n/1.7 3 >59 below low normal Not Available [facility] ([facility]) [address] [facility] [place], [address], 09/17/2024 12:14:10 09/17/19 25 09/17/2024 RENAL PANEL (10) BUN/creatini ne ratio 8 12-28 below low normal Not Available [facility] ([facility]) [address] [facility] [place], [address], 09/17/2024 12:14:10 09/17/19 25 09/17/2024 RENAL PANEL (10) sodium 140 mmol/ L 134-14 4 normal Not Available [facility] ([facility]) [address] [facility] [place], [address], 09/17/2024 12:14:10 04/30/20 25 09/17/2024 RENAL PANEL (10) potassium 4.2 mmol/ L 3.5-5. 2 normal Not Available [facility] ([facility]) [address] [place], [address], 09/17/2024 12:14:10 09/17/19 25 09/17/2024 RENAL PANEL (10) chloride 100 mmol/ L 96-106 normal Not Available [facility] ([facility]) [address] [place], [address], 09/17/2024 12:14:10 09/17/19 25 09/17/2024 RENAL PANEL (10) carbon dioxide, total 24 mmol/ L 20-29 normal Not Available [facility] ([facility]) [address] [place], [address], 09/17/2024 12:14:10 09/17/19 25 09/17/2024 RENAL PANEL (10) calcium 9.6 mg/dL 8.7-10 .3 normal Not Available [facility] ([facility]) [address] [place], [address], 09/17/2024 12:14:10 09/17/19 25 09/17/2024 RENAL PANEL (10) phosphorus 3.3 mg/dL 3.0-4. 3 normal Not Available [facility] ([facility]) [address] [place], [address], 09/17/2024 12:14:10 09/17/19 25 09/17/2024 RENAL PANEL (10) albumin 4.6 g/dL 3.9-4. 9 normal Not Available [facility] ([facility]) [address] [facility] [place], [address], 09/17/2024 12:14:10 09/17/19 25 09/17/2024 PROT+ CREAT U (RAND OM) creatinine, urine 138.1 mg/dL not estab. normal Not Available [facility] ([facility]) [address] [facility], [place], [address], 09/17/2024 12:14:11 09/17/19 25 09/17/2024 PROT+ CREAT U (RAND OM) protein,tota l,urine 14.2 mg/dL not estab. normal Not Available [facility] ([facility]) [address] [facility], [place], [address], 09/17/2024 12:14:11 09/17/19 25 09/17/2024 PROT+ CREAT U (RAND OM) protein/crea t ratio 103 mg/g_ creat 0-200 Not Available [facility] ([facility]) [address] [facility], [place], [address], 09/17/2024 12:14:11 09/29/19 25 09/28/2024 HbA1c (hemo globi n A1c), blood HbA1c 6.3 Not Available [address], [address], 09/28/2024 08:19:01 09/30/1909/30/2024 CBC WITH DIFFE RENTI AL/PL ATELE T WBC 7.4 x10e3 /uL 3.4-10 .8 normal Not Available [facility] ([facility]) [address] [facility], [place], [address], 09/30/2024 11:11:58 09/30/19 25 09/30/2024 CBC WITH DIFFE RENTI AL/PL ATELE T RBC 4.37 x10e6 /uL 3.77-5 .28 normal Not Available [facility] ([facility]) [address] [facility], [place], [address], 09/30/2024 11:11:58 09/30/19 25 09/30/2024 CBC WITH DIFFE RENTI AL/PL ATELE T hemoglobin 12.2 g/dL 11.1-1 5.9 normal Not Available [facility] ([facility]) [address] [facility], [place], [address], 09/30/2024 11:11:58 09/30/19 25 09/30/2024 CBC WITH DIFFE RENTI AL/PL ATELE T hematocrit 38.6 % 34.0-4 6.6 normal Not Available [facility] ([facility]) [address] [place], [address], 09/30/2024 11:11:58 09/30/19 25 09/30/2024 CBC WITH DIFFE RENTI AL/PL ATELE T MCV 88 fL 79-97 normal Not Available [facility] ([facility]) [address] [facility], [place], [address], 09/30/2024 11:11:58 09/30/19 25 09/30/2024 CBC WITH DIFFE RENTI AL/PL ATELE T MCH 27.9 pg 26.6-3 3.0 normal Not Available [facility] ([facility]) [address] [place], [address], 09/30/2024 11:11:58 09/30/19 25 09/30/2024 CBC WITH DIFFE RENTI AL/PL ATELE T MCHC 31.6 g/dL 31.5-3 5.7 normal Not Available [facility] ([facility]) [address] [place], [address], 09/30/2024 11:11:58 09/30/19 25 09/30/2024 CBC WITH DIFFE RENTI AL/PL ATELE T RDW 14.8 % 11.7-1 5.4 Not Available [facility] ([facility]) [address] [place], [address], 09/30/2024 11:11:58 09/30/19 25 09/30/2024 CBC WITH DIFFE RENTI AL/PL ATELE T platelets 239 x10e3 /uL 150-45 0 normal Not Available [facility] [address] [facility] [place], [place], [address], 09/30/2024 11:11:58 09/30/19 25 09/30/2024 CBC WITH DIFFE RENTI AL/PL ATELE T neutrophils 60 % not estab. normal Not Available [facility] ([facility]) [address] [facility] [place], [place], [address], 09/30/2024 11:11:58 09/30/19 25 09/30/2024 CBC WITH DIFFE RENTI AL/PL ATELE T lymphs 31 % not estab. normal Not Available [facility] ([facility]) [address] [facility] [place], [place], [address], 09/30/2024 11:11:58 09/30/19 25 09/30/2024 CBC WITH DIFFE RENTI AL/PL ATELE T monocytes 6 % not estab. normal Not Available [facility] ([facility]) [address] [facility] [place], [place], [address], 09/30/2024 11:11:58 09/30/19 25 09/30/2024 CBC WITH DIFFE RENTI AL/PL ATELE T eos 2 % not estab. normal Not Available [facility] ([facility]) [address] [facility] [place], [place], [address], 09/30/2024 11:11:58 09/30/19 25 09/30/2024 CBC WITH DIFFE RENTI AL/PL ATELE T basos 1 % not estab. normal Not Available [facility] ([facility]) [address] [facility] [place], [place], [address], 09/30/2024 11:11:58 09/30/19 25 09/30/2024 CBC WITH DIFFE RENTI AL/PL ATELE T immature cells SENIOR ENGINEERING TECH Not Available [facility] ([facility]) [address] [facility] [place], [place], [address], 09/30/2024 11:11:58 05/13/20 25 09/30/2024 CBC WITH DIFFE RENTI AL/PL ATELE T neutrophils (absolute) 4.4 x10e3 /uL 1.4-7. 0 normal Not Available [facility] ([facility]) [address] [facility] [place], [place], [address], 09/30/2024 11:11:58 09/30/19 25 09/30/2024 CBC WITH DIFFE RENTI AL/PL ATELE T lymphs (absolute) 2.3 x10e3 /uL 0.7-3. 1 normal Not Available [facility] ([facility]) [address] [place], [address], 09/30/2024 11:11:58 09/30/19 25 09/30/2024 CBC WITH DIFFE RENTI AL/PL ATELE T monocytes(ab solute) 0.4 x10e3 /uL 0.1-0. 9 normal Not Available [facility] ([facility]) [address] [place], [address], 09/30/2024 11:11:58 09/30/19 25 09/30/2024 CBC WITH DIFFE RENTI AL/PL ATELE T eos (absolute) 0.2 x10e3 /uL 0.0-0. 4 normal Not Available [facility] ([facility]) [address] [place], [address], 09/30/2024 11:11:58 09/30/19 25 09/30/2024 CBC WITH DIFFE RENTI AL/PL ATELE T baso (absolute) 0.0 x10e3 /uL 0.0-0. 2 normal Not Available [facility] ([facility]) [address] [place], [address], 09/30/2024 11:11:58 09/30/19 25 09/30/2024 CBC WITH DIFFE RENTI AL/PL ATELE T immature granulocytes 0 % not estab. Not Available [facility] ([facility]) [address] [facility] [place], [place], [address], 09/30/2024 11:11:58 09/30/19 25 09/30/2024 CBC WITH DIFFE RENTI AL/PL ATELE T immature grans (abs) 0.0 x10e3 /uL 0.0-0. 1 Not Available [facility] ([facility]) [address] [facility] [place], [place], [address], 09/30/2024 11:11:58 09/30/19 25 09/30/2024 CBC WITH DIFFE RENTI AL/PL ATELE T NRBC SENIOR ENGINEERING TECH Not Available [facility] ([facility]) [address] [facility] [place], [place], [address], 09/30/2024 11:11:58 09/30/19 25 09/30/2024 CBC WITH DIFFE RENTI AL/PL ATELE T hematology comments: SENIOR ENGINEERING TECH Not Available [facility] ([facility]) [address] [facility] [place], [place], [address], 09/30/2024 11:11:58 09/30/1909/30/2024 URINA LYSIS , COMPL ETE specific gravity 1.014 1.005- 1.030 normal Not Available [facility] ([facility]) [address] [facility] [place], [place], [address], 09/30/2024 11:11:59 09/30/1909/30/2024 URINA LYSIS , COMPL ETE pH 6.5 5.0-7. 5 normal Not Available [facility] ([facility]) [address] [facility] [place], [place], [address], 09/30/2024 11:11:59 09/30/1909/30/2024 URINA LYSIS , COMPL ETE urine-color Yellow yellow Not Available [facility] ([facility]) [address] [facility] [place], [place], [address], 09/30/2024 11:11:59 09/30/19 09/30/2024 URINA LYSIS , COMPL ETE appearance Clear clear Not Available [facility] ([facility]) [address] [facility] [place], [place], [address], 09/30/2024 11:11:59 09/30/19 25 09/30/2024 URINA LYSIS , COMPL ETE WBC esterase 2+ negati ve abnormal Not Available [facility] ([facility]) [address] [facility] [place], [place], [address], 09/30/2024 11:11:59 09/30/19 25 09/30/2024 URINA LYSIS , COMPL ETE protein Negati ve negati ve/tra ce Not Available [facility] ([facility]) [address] [facility] [place], [place], [address], 09/30/2024 11:11:59 09/30/19 25 09/30/2024 URINA LYSIS , COMPL ETE glucose Negati ve negati ve Not Available [facility] ([facility]) [address] [facility] [place], [place], [address], 09/30/2024 11:11:59 09/30/19 25 09/30/2024 URINA LYSIS , COMPL ETE ketones Negati ve negati ve Not Available [facility] ([facility]) [address] [facility] [place], [place], [address], 09/30/2024 11:11:59 09/30/19 25 09/30/2024 URINA LYSIS , COMPL ETE occult blood Negati ve negati ve Not Available [facility] ([facility]) [address] [facility] [place], [place], [address], 09/30/2024 11:11:59 09/30/19 25 09/30/2024 URINA LYSIS , COMPL ETE bilirubin Negati ve negati ve Not Available [facility] ([facility]) [address] [facility] [place], [place], [address], 09/30/2024 11:11:59 09/30/19 25 09/30/2024 URINA LYSIS , COMPL ETE urobilinogen ,semi-qn 0.2 mg/dL 0.2-1. 0 normal Not Available [facility] ([facility]) [address] [facility] [place], [place], [address], 09/30/2024 11:11:59 09/30/19 25 09/30/2024 URINA LYSIS , COMPL ETE nitrite, urine Negati ve negati ve Not Available [facility] ([facility]) [address] [facility] [place], [place], [address], 09/30/2024 11:11:59 09/30/19 25 09/30/2024 URINA LYSIS , COMPL ETE microscopic examination See below: Micro scopi c was indic ated and was perfo rmed. Not Available [facility] ([facility]) [address] [facility] [place], [place], [address], 09/30/2024 11:11:59 09/30/19 25 09/30/2024 URINA LYSIS , COMPL ETE WBC 11-30 /hpf 0 - 5 abnormal Not Available [facility] ([facility]) [address] [facility] [place], [place], [address], 09/30/2024 11:11:59 09/30/19 25 09/30/2024 URINA LYSIS , COMPL ETE RBC None seen /hpf 0 - 2 Not Available [facility] ([facility]) [address] [place], [address], 09/30/2024 11:11:59 09/30/19 25 09/30/2024 URINA LYSIS , COMPL ETE epithelial cells (non renal) 0-10 /hpf 0 - 10 Not Available [facility] ([facility]) [address] [place], [address], 09/30/2024 11:11:59 09/30/19 25 09/30/2024 URINA LYSIS , COMPL ETE epithelial cells (renal) SENIOR ENGINEERING TECH Not Available [facility] ([facility]) [address] [facility] [place], [place], [address], 09/30/2024 11:11:59 09/30/19 25 09/30/2024 URINA LYSIS , COMPL ETE casts None seen /lpf none seen Not Available [facility] ([facility]) [address] [facility] [place], [place], [address], 09/30/2024 11:11:59 09/30/19 25 09/30/2024 URINA LYSIS , COMPL ETE cast type SENIOR ENGINEERING TECH Not Available [facility] ([facility]) [address] [facility] [place], [place], [address], 09/30/2024 11:11:59 09/30/19 25 09/30/2024 URINA LYSIS , COMPL ETE crystals SENIOR ENGINEERING TECH Not Available [facility] ([facility]) [address] [place], [address], 09/30/2024 11:11:59 09/30/19 25 09/30/2024 URINA LYSIS , COMPL ETE crystal type SENIOR ENGINEERING TECH Not Available [facility] ([facility]) [address] [facility] [place], [place], [address], 09/30/2024 11:11:59 09/30/19 25 09/30/2024 URINA LYSIS , COMPL ETE mucus threads SENIOR ENGINEERING TECH Not Available [facility] ([facility]) [address] [place], [address], 09/30/2024 11:11:59 09/30/19 25 09/30/2024 URINA LYSIS , COMPL ETE bacteria None seen none seen/f ew Not Available [facility] ([facility]) [address] [facility] [place], [place], [address], 09/30/2024 11:11:59 09/30/19 25 09/30/2024 URINA LYSIS , COMPL ETE yeast SENIOR ENGINEERING TECH Not Available [facility] ([facility]) [address] [facility] [place], [address], 09/30/2024 11:11:59 09/30/19 25 09/30/2024 URINA LYSIS , COMPL ETE trichomonas SENIOR ENGINEERING TECH Not Available [facility] ([facility]) [address] [facility] [place], [address], 09/30/2024 11:11:59 09/30/19 25 09/30/2024 URINA LYSIS , COMPL ETE comment SENIOR ENGINEERING TECH Not Available [facility] ([facility]) [address] [facility] [place], [address], 09/30/2024 11:11:59 09/30/19 25 09/30/2024 URINA LYSIS , COMPL ETE microscopic examination SENIOR ENGINEERING TECH Not Available [facility] ([facility]) [address] [facility] [place], [address], 09/30/2024 11:11:59 09/30/19 25 09/30/2024 RENAL PANEL (10) glucose 133 mg/dL 70-99 above high normal Not Available [facility] ([facility]) [address] [facility] [place], [address], 09/30/2024 11:12:00 09/30/19 25 09/30/2024 RENAL PANEL (10) BUN 21 mg/dL 8-27 normal Not Available [facility] ([facility]) [address] [facility] [place], [address], 09/30/2024 11:12:00 09/30/19 25 09/30/2024 RENAL PANEL (10) creatinine 1.41 mg/dL 0.57-1 .00 above high normal Not Available [facility] ([facility]) [address] [facility] [place], [address], 09/30/2024 11:12:00 09/30/19 25 09/30/2024 RENAL PANEL (10) eGFR 40 mL/mi n/1.7 3 >59 below low normal Not Available [facility] ([facility]) [address] [place], [address], 09/30/2024 11:12:00 09/30/19 25 09/30/2024 RENAL PANEL (10) BUN/creatini ne ratio 15 12-28 normal Not Available [facility] ([facility]) [address] [place], [address], 09/30/2024 11:12:00 09/30/19 25 09/30/2024 RENAL PANEL (10) sodium 138 mmol/ L 134-14 4 normal Not Available [facility] ([facility]) [address] [place], [address], 09/30/2024 11:12:00 09/30/19 25 09/30/2024 RENAL PANEL (10) potassium 4.4 mmol/ L 3.5-5. 2 normal Not Available [facility] ([facility]) [address] [place], [address], 09/30/2024 11:12:00 09/30/19 25 09/30/2024 RENAL PANEL (10) chloride 100 mmol/ L 96-106 normal Not Available [facility] ([facility]) [address] [place], [address], 09/30/2024 11:12:00 09/30/19 25 09/30/2024 RENAL PANEL (10) carbon dioxide, total 23 mmol/ L 20-29 normal Not Available [facility] ([facility]) [address] [place], [address], 09/30/2024 11:12:00 09/30/19 25 09/30/2024 RENAL PANEL (10) calcium 10.0 mg/dL 8.7-10 .3 normal Not Available [facility] ([facility]) [address] [facility] [place], [address], 09/30/2024 11:12:00 09/30/19 25 09/30/2024 RENAL PANEL (10) phosphorus 3.0 mg/dL 3.0-4. 3 normal Not Available [facility] ([facility]) [address] [facility] [place], [place], [address], 09/30/2024 11:12:00 09/30/19 25 09/30/2024 RENAL PANEL (10) albumin 4.4 g/dL 3.9-4. 9 normal Not Available [facility] ([facility]) [address] [facility] [place], [place], [address], 09/30/2024 11:12:00 09/30/1909/30/2024 PROT+ CREAT U (RAND OM) creatinine, urine 101.2 mg/dL not estab. normal Not Available [facility] ([facility]) [address] [facility] [place], [place], [address], 09/30/2024 11:12:01 09/30/19 25 09/30/2024 PROT+ CREAT U (RAND OM) protein,tota l,urine 10.0 mg/dL not estab. normal Not Available [facility] ([facility]) [address] [facility] [place], [place], [address], 09/30/2024 11:12:01 09/30/19 25 09/30/2024 PROT+ CREAT U (RAND OM) protein/crea t ratio 99 mg/g_ creat 0-200 Not Available [facility] ([facility]) [address] [facility] [place], [place], [address], 09/30/2024 11:12:01 10/29/19 25 10/29/2024 CBC WITH DIFFE RENTI AL/PL ATELE T WBC 7.4 x10e3 /uL 3.4-10 .8 normal Not Available [facility] ([facility]) [address] [facility] [place], [place], [address], 10/30/2024 06:09:28 10/29/19 25 10/29/2024 CBC WITH DIFFE RENTI AL/PL ATELE T RBC 4.07 x10e6 /uL 3.77-5 .28 normal Not Available [facility] ([facility]) [address] [place], [address], 10/30/2024 06:09:28 10/29/1910/29/2024 CBC WITH DIFFE RENTI AL/PL ATELE T hemoglobin 11.8 g/dL 11.1-1 5.9 normal Not Available [facility] ([facility]) [address] [place], [address], 10/30/2024 06:09:28 10/29/1910/29/2024 CBC WITH DIFFE RENTI AL/PL ATELE T hematocrit 36.3 % 34.0-4 6.6 normal Not Available [facility] ([facility]) [address] [place], [address], 10/30/2024 06:09:28 10/29/1910/29/2024 CBC WITH DIFFE RENTI AL/PL ATELE T MCV 89 fL 79-97 normal Not Available [facility] ([facility]) [address] [place], [address], 10/30/2024 06:09:28 10/29/1910/29/2024 CBC WITH DIFFE RENTI AL/PL ATELE T MCH 29.0 pg 26.6-3 3.0 normal Not Available [facility] ([facility]) [address] [place], [address], 10/30/2024 06:09:28 10/29/1910/29/2024 CBC WITH DIFFE RENTI AL/PL ATELE T MCHC 32.5 g/dL 31.5-3 5.7 normal Not Available [facility] ([facility]) [address] [place], [address], 10/30/2024 06:09:28 10/29/19 25 10/29/2024 CBC WITH DIFFE RENTI AL/PL ATELE T RDW 14.7 % 11.7-1 5.4 Not Available [facility] ([facility]) [address] [facility] [place], [place], [address], 10/30/2024 06:09:28 10/29/19 25 10/29/2024 CBC WITH DIFFE RENTI AL/PL ATELE T platelets 187 x10e3 /uL 150-45 0 normal Not Available [facility] ([facility]) [address] [facility] [place], [place], [address], 10/30/2024 06:09:28 10/29/1910/29/2024 CBC WITH DIFFE RENTI AL/PL ATELE T neutrophils 67 % not estab. normal Not Available [facility] ([facility]) [address] [facility] [place], [place], [address], 10/30/2024 06:09:28 10/29/19 25 10/29/2024 CBC WITH DIFFE RENTI AL/PL ATELE T lymphs 24 % not estab. normal Not Available [facility] ([facility]) [address] [facility] [place], [place], [address], 10/30/2024 06:09:28 10/29/19 25 10/29/2024 CBC WITH DIFFE RENTI AL/PL ATELE T monocytes 6 % not estab. normal Not Available [facility] ([facility]) [address] [facility] [place], [place], [address], 10/30/2024 06:09:28 10/29/19 25 10/29/2024 CBC WITH DIFFE RENTI AL/PL ATELE T eos 2 % not estab. normal Not Available [facility] ([facility]) [address] [facility] [place], [place], [address], 10/30/2024 06:09:28 10/29/19 25 10/29/2024 CBC WITH DIFFE RENTI AL/PL ATELE T basos 1 % not estab. normal Not Available [facility] ([facility]) [address] [facility] [place], [place], [address], 10/30/2024 06:09:28 10/29/19 25 10/29/2024 CBC WITH DIFFE RENTI AL/PL ATELE T immature cells SENIOR ENGINEERING TECH Not Available [facility] ([facility]) [address] [facility] [place], [place], [address], 10/30/2024 06:09:28 10/29/19 25 10/29/2024 CBC WITH DIFFE RENTI AL/PL ATELE T neutrophils (absolute) 5.0 x10e3 /uL 1.4-7. 0 normal Not Available [facility] ([facility]) [address] [facility] [place], [place], [address], 10/30/2024 06:09:28 10/29/19 25 10/29/2024 CBC WITH DIFFE RENTI AL/PL ATELE T lymphs (absolute) 1.7 x10e3 /uL 0.7-3. 1 normal Not Available [facility] ([facility]) [address] [place], [address], 10/30/2024 06:09:28 10/29/19 25 10/29/2024 CBC WITH DIFFE RENTI AL/PL ATELE T monocytes(ab solute) 0.5 x10e3 /uL 0.1-0. 9 normal Not Available [facility] ([facility]) [address] [place], [address], 10/30/2024 06:09:28 10/29/19 25 10/29/2024 CBC WITH DIFFE RENTI AL/PL ATELE T eos (absolute) 0.2 x10e3 /uL 0.0-0. 4 normal Not Available [facility] ([facility]) [address] [place], [address], 10/30/2024 06:09:28 10/29/19 25 10/29/2024 CBC WITH DIFFE RENTI AL/PL ATELE T baso (absolute) 0.1 x10e3 /uL 0.0-0. 2 normal Not Available [facility] ([facility]) [address] [facility] [place], [place], [address], 10/30/2024 06:09:28 10/29/19 25 10/29/2024 CBC WITH DIFFE RENTI AL/PL ATELE T immature granulocytes 0 % not estab. Not Available [facility] ([facility]) [address] [facility] [place], [place], [address], 10/30/2024 06:09:28 10/29/19 25 10/29/2024 CBC WITH DIFFE RENTI AL/PL ATELE T immature grans (abs) 0.0 x10e3 /uL 0.0-0. 1 Not Available [facility] ([facility]) [address] [facility] [place], [place], [address], 10/30/2024 06:09:28 10/29/19 25 10/29/2024 CBC WITH DIFFE RENTI AL/PL ATELE T NRBC SENIOR ENGINEERING TECH Not Available [facility] ([facility]) [address] [facility] [place], [place], [address], 10/30/2024 06:09:28 10/29/19 25 10/29/2024 CBC WITH DIFFE RENTI AL/PL ATELE T hematology comments: SENIOR ENGINEERING TECH Not Available [facility] ([facility]) [address] [facility] [place], [place], [address], 10/30/2024 06:09:28 10/29/19 25 10/29/2024 UA/M W/RFL X MYKE PRITCHETT specific gravity 1.016 1.005- 1.030 normal Not Available [facility] ([facility]) [address] [facility] [place], [place], [address], 10/30/2024 06:09:29 10/29/19 25 10/29/2024 UA/M W/RFL X CULTU RE, ROUTI NE pH 6.5 5.0-7. 5 normal Not Available [facility] ([facility]) [address] [place], [address], 10/30/2024 06:09:29 10/29/19 25 10/29/2024 UA/M W/RFL X CULTU RE, ROUTI NE urine-color Yellow yellow Not Available [facility] ([facility]) [address] [place], [address], 10/30/2024 06:09:29 10/29/19 25 10/29/2024 UA/M W/RFL X CULTU RE, ROUTI NE appearance Clear clear Not Available [facility] ([facility]) [address] [place], [address], 10/30/2024 06:09:29 10/29/19 25 10/29/2024 UA/M W/RFL X CULTU RE, ROUTI NE WBC esterase 1+ negati ve abnormal Not Available [facility] ([facility]) [address] [place], [address], 10/30/2024 06:09:29 10/29/19 25 10/29/2024 UA/M W/RFL X CULTU RE, ROUTI NE protein 1+ negati ve/tra ce abnormal Not Available [facility] ([facility]) [address] [place], [address], 10/30/2024 06:09:29 10/29/19 25 10/29/2024 UA/M W/RFL X CULTU RE, ROUTI NE glucose Negati ve negati ve Not Available [facility] ([facility]) [address] [place], [address], 10/30/2024 06:09:29 10/29/19 25 10/29/2024 UA/M W/RFL X CULTU RE, ROUTI NE ketones Trace negati ve abnormal Not Available [facility] ([facility]) [address] [facility] [place], [place], [address], 10/30/2024 06:09:29 10/29/19 25 10/29/2024 UA/M W/RFL X CULTU RE, ROUTI NE occult blood Negati ve negati ve Not Available [facility] ([facility]) [address] [facility] [place], [place], [address], 10/30/2024 06:09:29 10/29/19 25 10/29/2024 UA/M W/RFL X CULTU RE, ROUTI NE bilirubin Negati ve negati ve Not Available [facility] ([facility]) [address] [facility] [place], [place], [address], 10/30/2024 06:09:29 10/29/19 25 10/29/2024 UA/M W/RFL X CULTU RE, ROUTI NE urobilinogen ,semi-qn 1.0 mg/dL 0.2-1. 0 normal Not Available [facility] ([facility]) [address] [facility] [place], [place], [address], 10/30/2024 06:09:29 10/29/19 25 10/29/2024 UA/M W/RFL X CULTU RE, ROUTI NE nitrite, urine Negati ve negati ve Not Available [facility] ([facility]) [address] [facility] [place], [place], [address], 10/30/2024 06:09:29 10/29/19 25 10/29/2024 UA/M W/RFL X CULTU RE, ROUTI NE microscopic examination See below: Micro scopi c was indic ated and was perfo rmed. Not Available [facility] ([facility]) [address] [place], [address], 10/30/2024 06:09:29 10/29/19 25 10/29/2024 UA/M W/RFL X CULTU RE, ROUTI NE WBC 0-5 /hpf 0 - 5 Not Available [facility] ([facility]) [address] [facility] [place], [place], [address], 10/30/2024 06:09:29 10/29/19 25 10/29/2024 UA/M W/RFL X CULTU RE, ROUTI NE RBC 0-2 /hpf 0 - 2 Not Available [facility] ([facility]) [address] [facility] [place], [place], [address], 10/30/2024 06:09:29 10/29/19 25 10/29/2024 UA/M W/RFL X CULTU RE, ROUTI NE epithelial cells (non renal) >10 /hpf 0 - 10 abnormal Not Available [facility] ([facility]) [address] [facility] [place], [place], [address], 10/30/2024 06:09:29 10/29/19 25 10/29/2024 UA/M W/RFL X CULTU RE, ROUTI NE epithelial cells (renal) SENIOR ENGINEERING TECH Not Available [facility] ([facility]) [address] [facility] [place], [place], [address], 10/30/2024 06:09:29 10/29/19 25 10/29/2024 UA/M W/RFL X CULTU RE, ROUTI NE casts Presen t /lpf none seen abnormal Not Available [facility] ([facility]) [address] [facility] [place], [place], [address], 10/30/2024 06:09:29 10/29/19 25 10/29/2024 UA/M W/RFL X CULTU RE, ROUTI NE cast type Hyalin e casts n/a Not Available [facility] ([facility]) [address] [facility] [place], [place], [address], 10/30/2024 06:09:29 10/29/19 25 10/29/2024 UA/M W/RFL X CULTU RE, ROUTI NE crystals Presen t n/a abnormal Not Available [facility] ([facility]) [address] [facility] [place], [place], [address], 10/30/2024 06:09:29 10/29/19 25 10/29/2024 UA/M W/RFL X CULTU RE, ROUTI NE crystal type Calciu m Oxalat e n/a Not Available [facility] ([facility]) [address] [facility] [place], [place], [address], 10/30/2024 06:09:29 10/29/19 25 10/29/2024 UA/M W/RFL X CULTU RE, ROUTI NE mucus threads Presen t not estab. Not Available [facility] ([facility]) [address] [facility] [place], [place], [address], 10/30/2024 06:09:29 10/29/19 25 10/29/2024 UA/M W/RFL X CULTU RE, ROUTI NE bacteria None seen none seen/f ew Not Available [facility] ([facility]) [address] [facility] [place], [place], [address], 10/30/2024 06:09:29 10/29/19 25 10/29/2024 UA/M W/RFL X CULTU RE, ROUTI NE yeast SENIOR ENGINEERING TECH Not Available [facility] ([facility]) [address] [facility] [place], [place], [address], 10/30/2024 06:09:29 10/29/19 25 10/29/2024 UA/M W/RFL X CULTU RE, ROUTI NE trichomonas SENIOR ENGINEERING TECH Not Available [facility] ([facility]) [address] [facility] [place], [place], [address], 10/30/2024 06:09:29 10/29/19 25 10/29/2024 UA/M W/RFL X CULTU RE, ROUTI NE comment SENIOR ENGINEERING TECH Not Available [facility] ([facility]) [address] [facility] [place], [place], [address], 10/30/2024 06:09:29 10/29/19 25 10/29/2024 UA/M W/RFL X CULTU RE, ROUTI NE microscopic examination SENIOR ENGINEERING TECH Not Available [facility] ([facility] [address] [facility] [place], [place], [address], 10/30/2024 06:09:29 10/29/19 25 10/29/2024 UA/M W/RFL X CULTU RE, ROUTI NE urinalysis reflex Commen t This speci men has refle xed to a Urine Cultu re. Not Available [facility] ([facility]) [address] [facility], [place], [address], 10/30/2024 06:09:29 10/29/19 25 10/30/2024 UA/M W/RFL X CULTU RE, ROUTI NE urine culture, routine Final report Not Available [facility] ([facility]) [address] [facility], [place], [address], 10/30/2024 06:09:29 10/29/19 25 10/30/2024 UA/M W/RFL X CULTU RE, ROUTI NE result 1 COMMEN T Mixed uroge nital christos Less than 10,00 0 colon ies/m L Not Available [facility] ([facility]) [address] [facility], [place], [address], 10/30/2024 06:09:29 10/29/19 25 10/29/2024 RENAL PANEL (10) glucose 136 mg/dL 70-99 above high normal Not Available [facility] ([facility]) [address] [place], [address], 10/30/2024 06:09:30 10/29/19 25 10/29/2024 RENAL PANEL (10) BUN 19 mg/dL 8-27 normal Not Available [facility] ([facility]) [address] [place], [address], 10/30/2024 06:09:30 10/29/19 25 10/29/2024 RENAL PANEL (10) creatinine 1.65 mg/dL 0.57-1 .00 above high normal Not Available [facility] ([facility]) [address] [place], [address], 10/30/2024 06:09:30 10/29/19 25 10/29/2024 RENAL PANEL (10) eGFR 33 mL/mi n/1.7 3 >59 below low normal Not Available [facility] ([facility]) [address] [place], [address], 10/30/2024 06:09:30 10/29/19 25 10/29/2024 RENAL PANEL (10) BUN/creatini ne ratio 12 - normal Not Available [facility] ([facility]) [address] [place], [address], 10/30/2024 06:09:30 10/29/19 25 10/29/2024 RENAL PANEL (10) sodium 139 mmol/ L 134-14 4 normal Not Available [facility] ([facility]) [address] [place], [address], 10/30/2024 06:09:30 10/29/19 25 10/29/2024 RENAL PANEL (10) potassium 4.0 mmol/ L 3.5-5. 2 normal Not Available [facility] ([facility]) [address] [place], [address], 10/30/2024 06:09:30 10/29/19 25 10/29/2024 RENAL PANEL (10) chloride 99 mmol/ L 96-106 normal Not Available [facility] ([facility]) [address] [place], [address], 10/30/2024 06:09:30 10/29/19 25 10/29/2024 RENAL PANEL (10) carbon dioxide, total 21 mmol/ L 20-29 normal Not Available [facility] ([facility]) [address] [place], [address], 10/30/2024 06:09:30 10/29/19 25 10/29/2024 RENAL PANEL (10) calcium 10.0 mg/dL 8.7-10 .3 normal Not Available [facility] ([facility]) [address] [facility] [place], [address], 10/30/2024 06:09:30 10/29/19 25 10/29/2024 RENAL PANEL (10) phosphorus 2.8 mg/dL 3.0-4. 3 below low normal Not Available [facility] ([facility]) [address] [facility] [place], [address], 10/30/2024 06:09:30 10/29/19 25 10/29/2024 RENAL PANEL (10) albumin 4.7 g/dL 3.9-4. 9 normal Not Available [facility] ([facility]) [address] [place], [address], 10/30/2024 06:09:30 10/29/19 25 10/29/2024 ALBUM IN/CR EAT RATIO , DARRYLO M UR creatinine, urine 177.6 mg/dL not estab. normal Not Available [facility] ([facility]) [address] [facility], [place], [address], 10/30/2024 06:09:30 10/29/19 25 10/29/2024 ALBUM IN/CR EAT RATIO , RANDO M UR albumin, urine 311.2 ug/mL not estab. Not Available [facility] ([facility]) [address] [place], [address], 10/30/2024 06:09:30 10/29/19 25 10/29/2024 ALBUM IN/CR EAT RATIO , RANDO M UR alb/creat ratio 175 mg/g_ creat 0-29 above high normal Xuan l: 0 - 29 Moder ately incre ased: 30 - 300 Sever digna incre ased: >300 Not Available [facility] ([facility]) [address] [facility], [place], [address], 10/30/2024 06:09:30 04/07/20 XR, chest , 2 view No observ ation record ed. [address], [place], [address], 04/08/2024 08:09:11 05/08/20 24 05/08/2024 US, duple x, renal arter y No observ ation record ed. [place] [address], [place], [address], 05/18/2024 15:42:37 05/13/20 24 05/08/2024 NM, myoca rdial perfu yuri scan, w/ stres s No observ ation record ed. [address], [place], [place], [address], 05/19/2024 10:59:18 05/13/20 24 05/08/2024 lucia can cardi olite stres s test (PROC ) No observ ation record ed. [address], [place], [place], [address], 05/19/2024 10:58:48 05/20/19 25 05/08/2024 US, doppl er echoc ardio gram No observ ation record ed. [address], [place], [place], [address], 05/28/2024 10:34:39 06/23/19 25 06/18/2024 US, carot id arter y No observ ation record ed. [place] [address], [place], [place], [address], 06/23/2024 08:48:51 07/25/19 25 07/24/2024 XR, chest , 2 view No observ ation record ed. [email or web address] [facility] [address], [place], [address], 07/24/2024 11:37:31 07/25/19 25 07/24/2024 LDCT, chest , for lung cance r scree cinthya No observ ation record ed. [facility] [address], [place], [address], 07/31/2024 08:33:30 07/25/19 25 07/24/2024 DEXA No observ ation record ed. [facility] [address], [place], [address], 07/31/2024 08:33:30 07/29/19 25 07/24/2024 MAMMO , scree icnthya, digit al, bilat eral No observ ation record ed. [facility] [address], [place], [address], 07/31/2024 08:33:30 10/01/19 25 07/06/2019 colon oscop y proce dure (PROC ) No observ ation record ed. [email or web address] Not Available 09/30 15:18:56 11/26/19 25 11/19/2024 MRI, lumba r spine , w/o contr ast No observ ation record ed. [facility] [address], [place], [address], 11/25/2024 19:15:44 11/27/19 25 11/19/2024 MRI, thora cic spine , w/o contr ast No observ ation record ed. [facility] [address], [place], [address], 11/26/2024 07:57:47 Result Notes None recorded. Problems Name Problem SNOMED Code Status Onset Date Resolution Date Notes Provider Name and Address Organization Details Recorded Time Bony swelling of lumbar spine 450868877 Completed 201512/15/2019 Problem Code: R29.898; Problem Code Type: ICD-10; Not Available [facility] 2 22:31:36 Musculos keletal symptom 59696353 Completed 201503/26/2022 Problem Code: 729.89; Problem Code Type: ICD-9; SANGEETA COFFEYNEAR null, [employer] 2 13:05:56 Restless legs 95728623 Completed 201512/15/2019 Problem Code: G25.81; Problem Code Type: ICD-10; Not Available [facility] 2 22:31:35 Generali zed anxiety disorder 75509850 Completed 201608/23/2016 Problem Code: F41.1; Problem Code Type: ICD-10; Not Available [facility] 2 22:31:34 Acute maxillar y sinusiti s 72558003 Completed 201608/31/2016 Problem Code: J01.00; Problem Code Type: ICD-10; SANGEETA ERLINDANEAR null, [employer] 2 13:05:56 Hyperten sive disorder 66537028 Active 2016 Problem Code: I10; Problem Code Type: ICD-10; Not Available [facility] 2 22:31:35 Acute maxillar y sinusiti s 46970046 Completed 201610/23/2016 Problem Code: J01.00; Problem Code Type: ICD-10; SANGEETA ERLINDANEAR null, [employer] 2 13:05:56 Primary insomnia 5519330 Completed 201602/04/2017 Problem Code: F51.01; Problem Code Type: ICD-10; Not Available [facility] 2 22:31:34 Acute sinusiti s 25812183 Completed 201612/20/2016 Problem Code: J01.90; Problem Code Type: ICD-10; Not Available [facility] 2 22:31:35 Transien t insomnia 396669348 Completed 201602/04/2017 Problem Code: 307.41; Problem Code Type: ICD-9; Not Available [facility] 2 22:31:40 Type 2 diabetes mellitus without complica tion 611305148 Active 2018 Not Available [facility] 2 22:31:34 Chronic obstruct canelo pulmonar y disease 27455705 Active 2018 Problem Code: J44.9; Problem Code Type: ICD-10; Not Available [facility] 2 22:31:36 Generali zed anxiety disorder 19527689 Active 2018 Problem Code: F41.1; Problem Code Type: ICD-10; Not Available [facility] 22:31:36 Screenin g mammogra phy Completed 201812/15/2019 Problem Code: Z12.31; Problem Code Type: ICD-10; SANGEETA MYNEAR null, [employer] 2 13:05:56 Breast composit ion 400706762 Completed 201803/26/2022 Problem Code: R92.2; Problem Code Type: ICD-10; SANGEETA MYNEAR null, [employer] 13:05:56 Neoplasm of uncertai n behavior of right breast 93543604209 9100 Completed 201803/26/2022 Problem Code: D48.61; Problem Code Type: ICD-10; SANGEETA MYNEAR null, [employer] 2 13:05:56 Chronic obstruct canelo pulmonar y disease with acute lower respirat ory infectio n 537885131 Completed 201803/26/2022 Problem Code: J44.0; Problem Code Type: ICD-10; SAGNEETA MYNEAR null, [employer] 2 13:05:56 Hypothyr oidism 65214272 Active 2019 Not Available [facility] 22:31:34 Acute maxillar y sinusiti s 45486649 Completed 201903/26/2022 Problem Code: J01.01; Problem Code Type: ICD-10; SANGEETA JOHNSONR null, [employer] 2 13:05:56 History of polyp of colon 742536846 Completed 201912/15/2019 Problem Code: Z86.010; Problem Code Type: ICD-10; Not Available [facility] 2 22:31:38 Mixed hyperlip idemia 129509519 Active 2019 Problem Code: E78.2; Problem Code Type: ICD-10; Not Available [facility] 2 22:31:34 Influenz a vaccine needed 77372144968 06 Completed 201912/15/2019 Problem Code: Z23; Problem Code Type: ICD-10; SANGEETA JOHNSONR null, [employer] 3 14:31:05 Acute non-supp urative serous otitis media 373695011 Completed 201903/26/2022 Problem Code: H65.02; Problem Code Type: ICD-10; SANGEETA COFFEYNEAR null, [employer] 2 13:05:56 Tinea corporis 58558924 Completed 201903/26/2022 Problem Code: B35.4; Problem Code Type: ICD-10; SANGEETA COFFEYNEAR null, [employer] 2 13:05:56 Chronic kidney disease stage 3 083077410 Active 2019 MSV21Hoh es: 'N18.3'; Not Available [facility] 2 22:31:39 Screenin g mammogra phy Completed 201903/26/2022 Problem Code: Z12.31; Problem Code Type: ICD-10; SANGEETA ERLINDANEAR null, [employer] 2 13:05:56 Influenz a vaccine needed 38554098496 06 Completed 201909/13/2020 Problem Code: Z23; Problem Code Type: ICD-10; SANGEETA ERLINDANEAR null, [employer] 3 14:31:05 Vitamin D deficien cy 22198541 Active 2020 Problem Code: E55.9; Problem Code Type: ICD-10; Not Available [facility] 2 22:31:34 Low back pain 326595638 Completed 202003/19/2021 Problem Code: M54.5; Problem Code Type: ICD-10; Not Available [facility] 2 22:31:36 General examinat ion of patient Active 2021 Not Available [facility] 22:31:37 Body mass index 25-29 - overweig ht 883061993 Active 2021 Problem Code: Z68.29; Problem Code Type: ICD-10; Not Available [facility] 22:31:40 Undiffer entiated inflamma tory polyarth ritis 823096049 Active 2021 Problem Code: M13.0; Problem Code Type: ICD-10; Not Available [facility] 2 22:31:38 Osteopor osis 55064887 Active 2024 Nuris Sandra APRN [address] [place] [address], [address] , [employer] 5 13:27:48 Type 2 diabetes mellitus 86005370 Active 2024 Nuris Sandra APRN [address] [place] [address], [address] , [employer] 5 13:23:31 Chronic kidney disease stage 4 996654427 Active 2024 Nuris Sandra APRN [address] [place], [address] , [employer] 5 13:23:41 Acute kidney injury 88623227 Active 2024 Nuris Sandra APRN [address] [place], [address] , [employer] 5 10:45:03 Renal artery stenosis 295684912 Active 2024 Nuris Sandra APRN [address] [place] [address], [address] , [employer] 5 17:32:49 Mild major depressi on 99016270 Active 2024 Nuris Sandra APRN [address] [place] [address], [address] , [employer] 5 17:19:50 Lumbar radiculo juan 331948648 Active 2024 Nuris Sandra APRN [address] [place] [address], [address] , [employer] 5 17:20:09 Kyphosis of thoracic spine 614878235 Active 2024 Nuris Sandra APRN [address] [place] [address], [address] , [employer] 5 17:20:40 Notes:*Problem Name: Occlusi on and stenosis of bilateral carotid arteries *Problem Status: Chronic *Comments: *Problem Code: I65.23 *Problem Code Type: ICD-10 *Note Date: 03/09/2019 Problem Notes None recorded. Procedures Surgical History Date Name Laterality Status Provider Name and Address Organization Details Recorded Time 5 Most Recent Mammogram completed SANGEETA [employer] 08/14/2024 13:16:24 3 Cryosurgery Warts/Skin Tags completed Nuris Sandra APRN [address] [place] [address], [address], [employer] 04/15/2023 12:51:49 3 Shave Biopsy completed Nuris Sandra APRN [address] [place] [address], [address], [employer] 12/25/2022 16:33:26 0 Colon Surgery completed SANGEETA [employer] 03/26/2022 13:08:28 insertion of renal artery stent completed Nuris Sandra APRN [address] [place] [address], [address], [facility] [employer] 10/21/2024 16:58:15 Imaging Results None recorded. Procedure Notes None recorded. Medical Equipment None Reported. Allergies Allergen ID Allergen Name Allergen Category Reaction Reaction Severity Criticality Documentation Date Start Date Code Code System Note Provider Name and Address Organization Details Recorded Time 65620 Zithromax medicatio n Not available Not available Not available 01/23/202219637 4 RxNorm Not Available [facility] 2 22:57:09 62259 Benadryl medicatio n Not available Not available Not available 01/23/202205203 7 RxNorm Not Available [facility] 2 22:57:09 Medications Name Sig Start Date [...] Updated DateTime 5 160.02 cm 30.8 kg/m2 55452.0 7 g 94 /min 95 % 95 % 159/76 mm[Hg] 108/68 mm[Hg] Jeane Mcintosh [employer] 5 13:34:42 Date Recorded Body height Body mass index (BMI) Body weight Body temperature Heart rate Oxygen saturation Oxygen saturation in Arterial blood by Pulse oximetry Systolic And Diastolic Provider Name and Address Organization Details Last Updated DateTime 5 160.02 cm 30.1 kg/m2 71583.7 g 98 [degF] 89 /min 94 % 94 % 124/68 mm[Hg] [employer] 5 13:15:55 Date Recorded Body height Body mass index (BMI) Body weight Body temperature Heart rate Oxygen saturation Oxygen saturation in Arterial blood by Pulse oximetry Systolic And Diastolic Provider Name and Address Organization Details Last Updated DateTime 5 160.02 cm 29.9 kg/m2 63983.1 1 g 98 [degF] 86 /min 95 % 95 % 134/68 mm[Hg] [employer] 5 13:22:38 Date Recorded Body height Body mass index (BMI) Body weight Body temperature Heart rate Oxygen saturation Oxygen saturation in Arterial blood by Pulse oximetry Systolic And Diastolic Systolic And Diastolic Provider Name and Address Organization Details Last Updated DateTime 5 160.02 cm 29.1 kg/m2 39210.1 5 g 98.1 [degF] 107 /min 94 % 94 % 145/60 mm[Hg] 121/72 mm[Hg] SANGEETA [employer] 5 16:49:36 Date Recorded Body height Body mass index (BMI) Body weight Body temperature Heart rate Oxygen saturation Oxygen saturation in Arterial blood by Pulse oximetry Systolic And Diastolic Systolic And Diastolic Systolic And Diastolic Provider Name and Address Organization Details Last Updated DateTime 4 160.02 cm 30.1 kg/m2 28692.7 g 98.1 [degF] 93 /min 93 % 93 % 166/61 mm[Hg] 156/74 mm[Hg] 157/70 mm[Hg] SANGEETA [employer] 4 15:33:46 Social History Question Answer Notes LastModified by Organizat ion Details LastModified Time Tobacco Smoking Status Former Smoker Kelli ackerman [employer] 06/25/2022 13:23:34 Do You Have An Advance [...] Do You Have A Medical Power Of Online Merchandiser? No Information not available 03/26/2022 What Was [...] Functional Status Question Answer Note LastModified by [employer] ion Details LastModified Time Do you use [...] PF 3 completed Nuris Sandra APRN [address] [place], [address], [employer] 04/21/2023 21:15:19 COVID-19, mRNA, LNP-S, PF, 100 mcg/0.5mL dose or 50 mcg/0.25mL dose 1 completed SANGEETA ackerman, [employer] 03/26/2022 13:03:41 COVID-19, mRNA, LNP-S, PF, 100 mcg/0.5mL dose or 50 mcg/0.25mL dose 1 completed SANGEETA MYNEAR null, [employer] 03/26/2022 13:03:41 Influenza, split virus, quadrivalent, PF 1 completed Not Available [facility] 04/15/2023 11:36:26 COVID-19, mRNA, LNP-S, PF, 100 mcg/0.5mL dose or 50 mcg/0.25mL dose 1 completed SANGEETA MYNEAR null, [employer] 03/26/2022 13:03:41 Influenza, MDCK, quadrivalent, preservative 9 completed SANGEETA MYNEAR null, [employer] 03/26/2022 13:03:41 pneumococcal polysaccharide PPV23 0 completed Not Available [facility] 04/15/2023 11:36:26 Influenza, split virus, quadrivalent, preservative 0 completed Not Available [facility] 04/15/2023 11:36:26 RSV, recombinant, protein subunit RSVpreF, adjuvant reconstituted, 0.5 mL, PF 5 completed Nuris Sandra APRN [address] [place], [address], [employer] 06/29/2024 14:43:42 COVID-19, mRNA, LNP-S, PF, 100 mcg/0.5mL dose or 50 mcg/0.25mL dose 2 completed SANGEETA MYNEAR null, [employer] 03/26/2022 13:03:41 Influenza, split virus, quadrivalent, PF 2 completed Nuris Sandra APRN [address] [place], [address], [employer] 03/26/2022 17:56:06 COVID-19, mRNA, LNP-S, bivalent, PF, 50 mcg/0.5 mL or 25mcg/0.25 mL dose 3 completed SANGEETA MYNEAR null, [employer] 06/26/2022 14:30:40 COVID-19, mRNA, LNP-S, PF, 50 mcg/0.5 mL 4 completed Nuris Sandra APRN [address] [place] [address], [address], [facility] [employer] 06/29/2024 13:42:27 Influenza, high-dose, trivalent, PF 4 completed Nursi Sandra APRN [address] [place] [address], [address], [facility] [employer] 06/29/2024 13:42:27 Past Encounters Encounter ID Performer Location Encounter Start Date Encounter Closed Date Diagnosis/Indication Diagnosis SNOMED-CT Code Diagnosis ICD10 Code Diagnosis Note [id number] Nuris Sandra [place] [phone] 03/26/2022 12:51:45 03/26/2022 13:47:40 Renal disorder due to type 2 diabetes mellitus 594112616 E11.21 Kim nephrology appointmen t she has scheduled for next month with Dr. Johnson.Bonnie anguiano to avoid all NSAID drugs. Adequate hydration emphasized . Essential hypertension 43892050 I10 Low-salt diabetic diet encouraged . Administra tion of influenza vaccine 29614475 Z23 Hypothyroidism 44148290 E03.9 Osteoporosis 05173155 M8 1.0 DEXA scan completed in December showed severe osteoporos is. She does have a remote history of smoking. We will start her on weekly Fosamax. I would also like her to continue her twice daily calcium with vitamin D over-the-c ounter, and increase aerobic weightbear ing exercise. [id number] Nuris Sandra [place] [phone] 06/26/2022 14:11:06 06/26/2022 15:14:17 Chronic kidney disease due to type 2 diabetes mellitus 4708202408 08 E11.22 Continue current medication s. Ulcerated nasal mucosa 931795188 J34.0 Body mass index 25-29 - overweight 234586840 Z68.29 [id number] Nuris Sandra [place] [phone] 09/24/2022 14:10:46 09/24/2022 15:04:31 Renal disorder due to type 2 diabetes mellitus 961017970 E11.21 Continue current medication s, hydrate well and avoid NSAIDs. Chronic ob structive pulmonary disease 51849325 J44.9 Hypothyroidism 25669900 E03.9 Vitamin D deficiency 347 03599 E55.9 Restless legs 27393281 G 25.81 Body mass index 25-29 - overweight 600663158 Z68.29 Eczema 43998502 L30.9 [id number] [place] [address] 0 12/25/2022 15:36:34 12/25/2022 18:04:10 Type 2 diabetes mellitus without complication 090903819 E11.9 continue current medication s. He may be a good candidate for Zarbee's with her renal disease and diabetes, but she states she cannot afford an expensive medication right now as she is on a limited income. Neoplasm o f uncertain behavior of skin 22399487 D48.5 posterior neck and right low back (two total lesions removed). Wound care instructio ns were explained. Avoid submerging in standing water. Monitor for signs of infection please. Cleanse twice daily with soap and water and apply a slightly white vinegar. [id number] [place] [address] 04/15/2023 11:32:59 04/15/2023 13:04:27 Chronic kidney disease due to type 2 diabetes mellitus 8749835508 08 E11.22 Continue current medication s. Administra tion of influenza vaccine 37191691 Z23 Chronic ob structive pulmonary disease 00376377 J44.9 General ex amination of patient 141531133 Z00.00 Patient presented to office today for [...] health risks and promote healthy living. Hypothyroidism 25124902 E03.9 Restless legs 87450744 G 25.81 Essential hypertension 32028838 I10 Low-salt diabetic diet encouraged . Vitamin D deficiency 347 52508 E55.9 Type 2 franklin betes mellitus without complication 007514475 E11.9 continue current medication s. He may be a good candidate for Karendia with her renal disease and diabetes, but she states she cannot afford an expensive medication right now as she is on a limited income. Generalize d anxiety disorder 44536870 F41.1 Renal diso rder due to type 2 diabetes mellitus 639459691 E11.21 Continue current medication s, hydrate well and avoid NSAIDs. Seborrheic keratosis 394 066849 L82.1 Cryo completed Body mass index 25-29 - overweight 990335114 Z68.[id number] [phone] 07/16/2023 16:20:03 07/16/2023 17:16:42 Type 2 diabetes mellitus without complication 497512134 E11.9 No med changes today. Acute sinusitis 14570699 J01.90 Patient likely has an acute bacterial [...] Follow-up as below. Vitamin D deficiency 347 73231 E55.9 Continue ergocal weekly. Body mass index 25-29 - overweight 552466497 Z68.29 [id number] [phone] 10/16/2023 15:50:23 10/16/2023 16:31:09 Type 2 diabetes mellitus without complication 897490565 E11.9 No med changes today. Neck pain 97040348 M54.2 Alternate ice and heat, biofreeze, stretching , limit lifting. Tylenol prn pain. [id number] Nuris Sandra [address] [phone] 01/13/2024 15:44:13 01/13/2024 16:42:05 Adult health examination 441714696 Z00.00 Type 2 franklin betes mellitus without complication 150893116 E11.9 No med changes today. Hypothyroidism 66197737 E03.9 Hypertensive disorder 38 863221 I10 Chronic ki dney disease stage 3 050251804 N18.30 Continues to follow with Nephrology . Hydration, avoiding nsaids and DM and HTN control emphasized . Body mass index 25-29 - overweight 984207935 Z68.29 Insomnia 283051730 G47.0 0 Sleep hygiene and grief counseling encouraged [id number] Nuris Sandra [place] [phone] 04/06/2024 16:10:48 04/06/2024 16:53:09 Chronic obstructive pulmonary disease 30940226 J44.9 She does have rescue inhaler and Symbicort at home. Chronic ki dney disease stage 4 606872081 N18.4 Continue to hydrate well and avoid NSAID drugs. She does not see nephrology until May for follow-up. Essential hypertension 66339789 I10 Increase Hydralazin e to 50 mg BID, increase metoprolol tartrate to 50 mg BID. Obtain chest x-ray today. She is to keep a blood pressure and heart rate log twice daily and follow-up with me with a log for review in 1 week. Low-salt diet was encouraged . [id number] Nuris Sandra [address] [phone] 04/13/2024 15:18:59 04/13/2024 16:16:19 Acute exacerbation of chronic obstructive pulmonary disease 437836964 J44.1 Restart Symbicort for maintenanc e, complete antx and steroids as prescribed by ER. Essential hypertension 62992586 I10 Increase Hydralazin e to 75 mg BID. DASH diet emcouraged . Continue BP diary and report to me BP readings in one week. [id number] Nuris Sandra [place] [address] 04/28/2024 15:27:42 04/28/2024 17:12:38 Labile essential hypertension 425442937 I10 Obtain renal artery duplex to rule out KAYLEEN. [id number] Nuris Sandra [place] [address] 06/29/2024 13:24:56 06/29/2024 14:05:07 Type 2 diabetes mellitus without complication 049603343 E11.9 No med changes today. Will refer for DM eye exam. Healthy diet and increased physical acitivty was encouraged . Chronic ki dney disease stage 3 917370237 N18.30 Continues to follow with Nephrology . Hydration, avoiding nsaids and DM and HTN control emphasized . Screening mammography of bilateral breasts [id number] Z12.31 Screening for malignant neoplasm of respiratory tract [id number] Z12.2 Quit smoking 4 years ago. Active or passive immunization [id number] Z23 Body mass index 30+ - obesity [id number] Z68.30 [id number] Nuris Sandra [place] [address] 0 08/14/2024 12:48:29 08/14/2024 13:44:36 Osteoporosis [id number] M81.0 Cannot take fosamax and other bisphospha sherrie due to severe CKD. Right femoral neck T score was -2.1. Begin prolia and calcium w/ d. Weight bearing exercise encouraged . Low back pain [id number] M54.50 Increase flexeril to 10 mg prn, obtain UA, alternate ice and heat. Cannot afford Physical therapy and you can use tylenol and voltaren gel. She cannot take NSAIDS due to CKD. [id number] [place] [address] 09/28/2024 12:58:57 09/28/2024 13:54:22 Type 2 diabetes mellitus [id number] E11.9 Continue current medication s. Chronic ki dney disease stage 4 [id number] N18.4 Continue to hydrate well and avoid NSAID drugs. Renal artery stenosis 30 [id number] I70.1 I have called [facility] in [place] and she is scheduled for KAYLEEN procedure this week. [id number] Nuris Jocy [employer] [address] [address] 10/21/2024 16:28:38 10/22/2024 08:31:06 Mild major depression 01208325 F32.0 Start Zoloft. Encouraged she consider grief counseling . Continue hydroxyzin e. Lumbar radiculopathy 128 109031 M54.16 Has failed muscle relaxants, alternate ice and heat. Cannot afford Physical therapy and has failed tylenol and voltaren gel. She cannot take NSAIDS due to CKD. Is developing myelopathy in legs. Kyphosis o f thoracic spine [id number] M40.204 Developing neuralgias in right trapezius with [...] (MEDICARE REPLACEMENT/AD VANTAGE - HMO) Michelle Castañeda [id number] Michelle Castañeda 09/25/2024 MEDICARE A-[place]: [id number] [facility] Michelle Castañeda [id number] Michelle Castañeda 03/23/2022 1 *SELF PAY* Vika Castañeda Notes Date Note Type Note Provider Name and Address Organization Details Recorded Time 4 text/html Hypertension F/UReported bypatient.Medications:oli ing medications [...] tolerating hydralazine due to fatigue and nausea. Has CKD followed by Nephrology with known atrophic left kidney. Nuris Sandra APRN [address] [place], [address], [employer]. 05/21/2024 22:00:00 5 text/html DiabetesReported bypatient.Duration:chroni c [...] amlodipine and coreg. Nuris Sandra APRN [address] [place], [address], [employer]. 06/29/2024 14:47:57 5 text/html OsteoporosisReported bypatient.Age acquired:69 [...] tried tylenol and robaxin without relief. Nuris Sandra, [employer]CH[employer] [address] [facility], [place], [address], [facility] [employer]. 08/16/2024 15:28:49 5 text/html DiabetesReported bypatient.Duration:chroni c [...] amlodipine and coreg. Nuris Sandra APRN [address] [place], [address], [employer]. 10/16/2024 17:34:56 5 text/html Has 2 stents [...] has not had MRI of spine. Nuris Sandra APRN [address] [place], [address], [employer], [employer]. 10/23/2024 15:19:53 OBGyn Episode No OBEpisode recorded.
--- NOTE | 2024-12-04 13:00 | MR_ITS ---
FINAL REPORT CLINICAL HISTORY: abnl test COMPARISON: None FINDINGS: Multiple projection images of the neck arterial vasculature were obtained without contrast. Raw data images were also reviewed. The right common carotid artery is patent. There is mild stenosis of the right proximal internal carotid artery of 30% or less. No flow is seen in the proximal right vertebral artery. There is flow in the distal right vertebral artery at the origin of the posterior inferior cerebellar artery, suggesting retrograde filling of the distal right vertebral artery. The left common carotid artery is patent. There is approximately 50% stenosis of the left proximal internal carotid artery. The left vertebral artery is patent. IMPRESSION: 1. No flow is seen in the proximal right vertebral artery, with flow of the distal right vertebral artery likely retrograde as described. 2. Approximately 30% right proximal internal carotid stenosis, with approximately 50% stenosis of the left proximal internal carotid artery. Reviewed, Interpreted and Dictated by Eric Arzola MD Transcribed by Clara Cabral Authenticated and [facility]
--- NOTE | 2024-12-04 13:30 | MR_ITS ---
FINAL REPORT TECHNIQUE: 3-D kkhv-ml-vjnfog sequences without contrast CLINICAL HISTORY: abnl cni COMPARISON: None FINDINGS: The distal internal carotid arteries are unremarkable. MCAs and ACAs are unremarkable. The distal vertebral arteries are patent, the left dominant. However, the direction of flow in the right vertebral artery cannot be determined as antegrade or retrograde. Basilar artery is widely patent. hotel reservation agent are intact. No aneurysm is seen. IMPRESSION: 1. Direction of flow in the distal right vertebral artery cannot be determined as antegrade or retrograde based on this examination. 2. Otherwise, unremarkable intracranial MRA. Reviewed, Interpreted and Dictated by Eric Arzola MD Transcribed by Clara Cabral Authenticated and [facility]
== END 2024-12-04 23:59 | disposition home or self-care (01) ==
LOC: RAD 12:55
PROVIDERS: PCP Nurse Practitioner Family; Visit Provider Nurse Practitioner
DX: I65.23 Occlusion and stenosis of bilateral carotid arteries (principal); I65.01 Occlusion and stenosis of right vertebral artery; I10 Essential (primary) hypertension; R94.31 Abnormal electrocardiogram [ECG] [EKG]; R93.89 Abnormal findings on diagnostic imaging of other specified body structures; R06.09 Other forms of dyspnea
CPT/HCPCS: 70544; 70547

== ENCOUNTER 2025-03-16 09:18 | Day surgery (SDC) | payer MEDICARE, SELFPAY ==
[2025-03-16 09:25] VITALS: BP 119/69; PULSE 81; RESP 16; O2SAT 94; BMI 28.3
[2025-03-16] MEDS: DEXAMETHASONE 10MG/ML 1ML VIAL 10 MG (09:44)
--- NOTE | 2025-03-16 09:50 | EXP.PAIN.PRO ---
Procedure Date: 03/16/25 Time: 09:40 Anesthesiologist:: Thuan Mercado CRNA Complications:: None Pre-procedure Diagnosis:: Degenerative disc lumbar spine multilevels. Lumbar radiculopathy. Lumbar disc bulge multilevel. Spinal stenosis lumbar spine. Post-procedure Diagnosis:: Same Indications for Procedure:: Patient is a very pleasant 69-year-old female comes our clinic today for lumbar epidural steroid injection L4-5 level. Patient describes low lumbar back pain as well as bilateral hip and leg radicular symptoms at times. She rates her pain 7/10. Patient was scheduled for epidurogram at the L4-5 level. However, patient refused contrast dye due to kidney disease. Procedure Details:: Procedure: Lumbar epidural steroid injection under fluoroscopy Informed consent was obtained and the risks and benefits of the procedure were explained to the patient. The patient was taken to the procedure room and noninvasive monitors placed, including noninvasive blood pressure cuff and pulse oximeter. The back was viewed using C-arm Fluoroscopy and prepped using Chloraprep as a cleansing solution and the L4-L5 interspace was palpated. Skin and subcutaneous tissues were anesthetized using lidocaine 1.5% and a 25-gauge needle. After this, an 18-gauge Touhy epidural needle was placed into the L4-L5 interspace and advanced using fluoroscopic guidance and loss of resistance to air until the epidural space was encountered. After confirmation of needle placement in the epidural space, with dye, a solution containing normal saline, 3 mL and dexamethasone 10 mg were incrementally injected into the lumbar epidural space. The patient tolerated the procedure well with no complications. The patient was observed in the Pain Clinic and then discharged home neurologically intact. Plan and Disposition:: Patient was discharged without incident.
[2025-03-16 09:51] VITALS: BP 147/69; PULSE 86; RESP 18; O2SAT 96
[2025-03-16 10:11] VITALS: BP 153/56; PULSE 78; RESP 18; O2SAT 98
== END 2025-03-16 09:51 | disposition home or self-care (01) ==
PROVIDERS: PCP Nurse Practitioner Family; Visit Provider Nurse Anesthetist, Certified Registered
DX: M51.16 Intervertebral disc disorders with radiculopathy, lumbar region (principal); M48.061 Spinal stenosis, lumbar region without neurogenic claudication; J45.909 Unspecified asthma, uncomplicated; E03.9 Hypothyroidism, unspecified; I10 Essential (primary) hypertension; E78.5 Hyperlipidemia, unspecified; Z87.891 Personal history of nicotine dependence; Z79.890 Hormone replacement therapy; Z79.51 Long term (current) use of inhaled steroids; Z88.1 Allergy status to other antibiotic agents; Z88.8 Allergy status to other drugs, medicaments and biological substances; Z79.899 Other long term (current) drug therapy
CPT/HCPCS: 62323; J1100